=== PATIENT | female | born 1950 | race Caucasian/White ===

== ENCOUNTER 2024-04-04 10:59 | Outpatient (CLI) | payer MEDICARE, SELFPAY ==
[2024-04-04 11:18] LABS: Hematocrit 38.7 % (37.0-47.0); Hemoglobin 12.4 g/dL (12.0-15.0); Mean Corpuscular Volume 96.8 fl (80-100); Mean Platelet Volume 8.6 fl (7.4-10.4); Platelet Count Result 181 k/mm3 (150-375); Red Cell Distribution Width 13.6 % (11.5-14.5); White Blood Count 4.4 K/mm3 (4.5-10.0)
[2024-04-04 16:01] LABS: Alanine Aminotransferase 26 U/L (6-35); Alkaline Phosphatase 89 U/L (38-126); Anion Gap 7 mmol/L (4-12); Aspartate Amino Transferase 24 U/L (14-36); Bilirubin,Total 0.2 mg/dL (0.2-1.3); Blood Urea Nitrogen 13 mg/dL (7-17); Calcium 8.7 mg/dL (8.4-10.2); Carbon Dioxide 30 mmol/L (22-30); Chloride 100 mmol/L (98-107); Estimated Glomerular Filt Rate > 60; Glucose 158 mg/dL (65-110); Lactate Dehydrogenase 172 U/L (120-246); Potassium 4.4 mmol/L (3.4-5.0); Sodium 137 mmol/L (137-145)
== END 2024-04-04 11:00 | disposition home or self-care (01) ==
LOC: ANHLAB 11:05
PROVIDERS: Visit Provider Internal Medicine Hematology & Oncology
DX: C85.90 Non-Hodgkin lymphoma, unspecified, unspecified site (principal)
CPT/HCPCS: 36415; 80053; 83615; 85027

== ENCOUNTER 2024-04-07 14:15 | Emergency (ER) | payer MEDICARE, SELFPAY ==
--- NOTE | 2024-04-07 14:21 | ED.EAR ---
HPI - Ear Problem General Chief complaint: Ear Stated complaint: CLOGGED EAR Time Seen by Provider: 04/07/24 14:22 Source: patient, RN notes reviewed and old records reviewed Mode of arrival: ambulatory Limitations: no limitations History of Present Illness HPI Narrative: 73-year-old female to [facility] for complaint of clogged left ear with decreased hearing for 1 week. Patient states she has played doctor attempting to relieve the issue. Patient reports using Q-tips as well as attempting to irrigate the ear multiple times without improvement of symptoms. Patient denies recent illness, fever, cough, sore throat allergies, pertinent medical history. Patient resting, seated comfortably on exam table in no acute distress. Respirations even and nonlabored. Related Data Home Medications Medication Instructions Recorded Confirmed apixaban 5 mg tablet (Eliquis) 5 mg PO BID 04/07/24 04/07/24 celecoxib 200 mg capsule 200 mg PO DAILY 04/07/24 04/07/24 digoxin 125 mcg (0.125 mg) tablet 125 mcg PO DAILY 04/07/24 04/07/24 diltiazem HCl 360 mg capsule,24 360 mg PO QAM 04/07/24 04/07/24 hr,extended release duloxetine 60 mg capsule,delayed 60 mg PO DAILY 04/07/24 04/07/24 release gabapentin 300 mg capsule 300 mg PO TID 04/07/24 04/07/24 glipizide 5 mg tablet 5 mg PO AC 04/07/24 04/07/24 metoprolol succinate 25 mg 25 mg PO DAILY 04/07/24 04/07/24 tablet,extended release 24 hr potassium chloride 20 mEq 40 meq PO DAILY 04/07/24 04/07/24 tablet,extended release pravastatin 40 mg tablet 40 mg PO QHS 04/07/24 04/07/24 primidone 50 mg tablet 100 mg PO HS 04/07/24 04/07/24 torsemide 20 mg tablet 40 mg PO DAILY 04/07/24 04/07/24 tramadol 50 mg tablet 100 mg PO TID PRN arthritis 04/07/24 04/07/24 Allergies Allergy/AdvReac Type Severity Reaction Status Date / Time No Known Allergies Allergy Verified 04/07/24 14:28 Review of Systems Review of Systems: All systems reviewed & are unremarkable except as noted in HPI and below Constitutional: Constitutional: Reports no additional constitutional complaints Eyes: Eyes: Reports no additional eye complaints ENT: Reports as per HPI and Reports other ( Left ear clogged ) Cardiovascular: Cardiovascular: Reports no additional cardiovascular complaints, Denies chest pain and Denies dyspnea Respiratory: Respiratory: Reports no additional respiratory complaints, Denies cough and Denies dyspnea Musculoskeletal: Musculoskeletal: Reports no additional musculoskeletal complaints Neurologic: Reports system reviewed and no additional complaints, except as documented Psychiatric: Psychiatric: Reports no additional psychiatric complaints PMFSH Comments At the time of my signature, I reviewed and agree with the nursing past medical, surgical, social, and family history. There is no relevant family history pertinent to the patient complaint. Exam Const: General: cooperative, healthy appearing, comfortable, no acute distress, alert and well nourished Nutritional Appearance: well nourished Orientation/consciousness: patient oriented x3 Limitations: no limitations HENMT: Head: normal to inspection Ears: Abnormal EAC present cerumen impaction on the left, excessive cerumen on the right and erythema bilateral; no otic discharge and TM abnormal erythematous on the right and obstructed by cerumen on the left Face/Nose/Sinus: Normal external nose present, Normal nares present, normal facial exam, No erythema and No edema Face and sinus: normal facial exam, no erythema and no edema Mouth: Yes Normal oral and palatal mucosa present Eyes: General: appearance normal, both eyes and all related structures Neck: Neck: normal visual inspection, full ROM and no meningeal signs Chest: Chest palpation & inspection: normal inspection of the chest Resp: Effort & Inspection: normal respiratory effort and able to speak in complete sentences Cardio: Jugular venous distension: no JVD Rate: regular ra
[2024-04-07 14:29] VITALS: BP 130/83; PULSE 91; RESP 16; TEMP 36.1; O2SAT 97
[2024-04-07 14:36] VITALS: BP 130/83; PULSE 91; RESP 16; TEMP 36.1; O2SAT 97
== END 2024-04-07 15:20 | disposition home or self-care (01) ==
PROVIDERS: Emergency Provider Nurse Practitioner Family; PCP Family Medicine
DX: H60.91 Unspecified otitis externa, right ear (principal); H61.23 Impacted cerumen, bilateral; Z86.73 Personal history of transient ischemic attack (TIA), and cerebral infarction without residual deficits; I48.91 Unspecified atrial fibrillation; E78.00 Pure hypercholesterolemia, unspecified; I10 Essential (primary) hypertension; M19.90 Unspecified osteoarthritis, unspecified site; E11.9 Type 2 diabetes mellitus without complications; Z85.72 Personal history of non-Hodgkin lymphomas
CPT/HCPCS: 69210; 99213; A9270; G0463

== ENCOUNTER 2024-04-11 14:14 | Outpatient (CLI) | payer MEDICARE, SELFPAY ==
--- NOTE | ~2024-04-11 | CT_ITS ---
EXAMINATION: CT chest abdomen pelvis w con DATE: 04/11/2024 15:00 INDICATION: Non-Hodgkin's lymphoma. TECHNIQUE: Computed tomography (CT) of the chest, abdomen, and pelvis was performed with 100 mL Omnip aque 350 intravenous contrast. Automated exposure control and iterative reconstruction technique were employed. The dose-length product was 1430.37 mGy-cm. COMPARISON: None FINDINGS: CHEST CT: The lungs demonstrate mild atelectasis. No pleural effusion. There are nodules in the thyroid measuri ng up to 13 mm, likely not clinically significant. The heart size is normal. 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 There are coronary artery calcifications. No pericardial effusion. T here is lipomatous hypertrophy of the interatrial septum. There are bridging endplate osteophytes at multiple levels in the spine, consistent with diffuse idiopathic skeletal hyperostosis (DISH). There is mild thoracic spondylosis. ABDOMEN/PELVIS CT: The liver and spleen are normal. There are changes of cholecystectomy. The pancreas, adrenal glands, and right kidney are normal. There is a 12 mm stone in left kidney. There is calcified atherosclerosi s of the aorta and many of the other arteries. There is diverticulosis of the colon without evidence of diverticulitis. There are no dilated loops of bowel. The appendix is normal. There are no patholog ically enlarged lymph nodes. There is no free intraperitoneal fluid. There is severe lumbar spondylos is. IMPRESSION: 1. No evidence of lymphoma. Reviewed, dictated and finalized at location A. IMPRESSION: 1. No evidence of lymphoma.
== END 2024-04-11 14:15 | disposition home or self-care (01) ==
PROVIDERS: PCP Family Medicine; Visit Provider Internal Medicine Hematology & Oncology
DX: C85.90 Non-Hodgkin lymphoma, unspecified, unspecified site (principal)
CPT/HCPCS: 71260; 74177; Q9967

== ENCOUNTER 2024-05-19 11:32 | Outpatient (CLI) | payer MEDICARE, SELFPAY ==
[2024-05-19 12:40] LABS: Cholesterol 168 mg/dL (0-200); HDL Direct 40 mg/dL; Triglycerides 187 mg/dL (<150)
[2024-05-19 12:50] LABS: LDL Cholesterol Direct 90 mg/dL
[2024-05-19 14:44] LABS: Hemoglobin A1C 6.4 % (<5.7)
== END 2024-05-19 11:33 | disposition home or self-care (01) ==
LOC: ANHLAB 11:37
PROVIDERS: PCP Family Medicine; Visit Provider Family Medicine
DX: E11.9 Type 2 diabetes mellitus without complications (principal); M81.0 Age-related osteoporosis without current pathological fracture; C80.1 Malignant (primary) neoplasm, unspecified; M19.90 Unspecified osteoarthritis, unspecified site
CPT/HCPCS: 36415; 80061; 83036

== ENCOUNTER 2024-05-20 13:47 | Outpatient (CLI) | payer MEDICARE, SELFPAY | END 2024-05-20 13:48 | disposition home or self-care (01) | LOC: ANHAUDIO 13:49 | PROVIDERS: PCP Family Medicine; Visit Provider Family Medicine | DX: H90.3 Sensorineural hearing loss, bilateral (principal) | CPT/HCPCS: 92557; 92567 ==

== ENCOUNTER 2024-06-09 01:14 | Day surgery (SDC) | payer MEDICARE, SELFPAY ==
[2024-06-03 09:27] VITALS: BMI 37.2
--- NOTE | 2024-06-06 08:33 | PC.NURSE ---
Spoke with patient regarding medication ELIQUIS. Pt. verbalizes understanding that the last dose of ELIQUIS is to be taken on 06/05/2024 and the Endoscopist will instruct them when to restart after the procedure.
[2024-06-09 09:19] VITALS: BP 136/77; PULSE 70; RESP 18; TEMP 36.6; O2SAT 98; BMI 37.9
[2024-06-09] MEDS: LACTATED RINGERS 1,000 ML 150 ML IV CONT (09:23)
[2024-06-09 09:42] LABS: Glucose Point of Care 119 mg/dl (65-105)
--- NOTE | 2024-06-09 09:47 | P.PNAN_ITS ---
Anes - Initial Pre Proc Eval Procedure: Operation Date: 06/09/24 10:00 Proposed Procedures p Colonoscopy - Adrian Perrin MD Date/Time: 06/09/24 09:47 Surgeon: Adrian Perrin MD Pre Op Diagnosis: screening colon Patient Data Age: 73 Gender: F Height: 1.6 m Weight: 97.2 kg Last Vital Signs Temp 36.6 C 06/09/24 09:19 Pulse 70 06/09/24 09:19 Resp 18 06/09/24 09:19 BP 136/77 06/09/24 09:19 Pulse Ox 98 06/09/24 09:19 O2 Del Method Room Air 06/09/24 09:19 Allergies Allergy/AdvReac Type Severity Reaction Status Date / Time No Known Allergies Allergy Verified 06/09/24 09:15 Home Medications Medication Instructions Recorded Confirmed Type apixaban 5 mg tablet (Eliquis) 5 mg PO BID 04/07/24 06/09/24 History celecoxib 200 mg capsule 200 mg PO DAILY 04/07/24 06/09/24 History digoxin 125 mcg (0.125 mg) tablet 125 mcg PO DAILY 04/07/24 06/09/24 History diltiazem HCl 360 mg capsule,24 360 mg PO QAM 04/07/24 06/09/24 History hr,extended release gabapentin 300 mg capsule 300 mg PO TID 04/07/24 06/09/24 History glipizide 5 mg tablet 5 mg PO AC 04/07/24 06/09/24 History potassium chloride 20 mEq 40 meq PO DAILY 04/07/24 06/09/24 History tablet,extended release pravastatin 40 mg tablet 40 mg PO QHS 04/07/24 06/09/24 History primidone 50 mg tablet 25 mg PO HS 04/07/24 06/09/24 History torsemide 20 mg tablet 40 mg PO DAILY 04/07/24 06/09/24 History tramadol 50 mg tablet 100 mg PO TID PRN arthritis 04/07/24 06/09/24 History duloxetine 60 mg capsule,delayed See Rx Instructions .Route 05/20/24 06/09/24 Rx release .COMPLEX #90 caps metoprolol succinate 25 mg See Rx Instructions .Route 05/20/24 06/09/24 Rx tablet,extended release 24 hr .COMPLEX #90 tabs Laboratory Tests 06/09/24 09:39 POC Capillary Glucose 119 H mg/dl (65-105) Patient hx anesthesia problems: none Family hx anesthesia problems: none Results Review: All pre-operative results and documents have been reviewed as part of the pre- operative evaluation. [facility] Past Medical History Medical History (Updated 06/09/24 @ 09:48 by Cheko Munoz MD) Afib Arthritis Cancer Diabetes Osteoporosis Family History Family History Mother Diabetes mellitus Cancer Father Depression Anxiety Sibling Diabetes mellitus Sibling Cancer Diabetes mellitus Social History Social History Smoking packs per day: 1 Smoking cigarettes per day: 20.0 Years smoked: 50 Smoking pack-years: 50.00 Smoking status: Former smoker Tobacco type: cigarettes Alcohol intake: current Substance use: never Living arrangements: alone Spiritual care concerns: No Anes - Eval Final PreProcedure Day of Procedure 06/09/24 09:47 Patient weight: morbidly obese Heart: regular rate and rhythm Lungs: clear to auscultation Airway: Mallampati scale class II Neurological: alert and oriented Last oral intake: >/= 8 hours ASA classification: III Emergent: no Anesthetic plan: proceed Anesthesia type and monitoring: general GIVS and standard monitoring Results Review: All pre-operative results and documents have been reviewed as part of the pre- operative evaluation. Informed Consent: The patient's anesthetic plan and its attendant risks and benefits were discussed with the patient/family/POA. Questions were solicited and answers provided to the satisfaction of the patient/family/POA.
--- NOTE | 2024-06-09 10:46 | PM.IMHP ---
H&P: HPI History of Present Illness Date/Time: 06/09/24 10:46 Chief Complaint: History of colonic polyps Narrative: The patient has a history of colonic polyps, the last colonoscopy was 5 yr ago [facility] Past Medical History Medical History (Updated 06/09/24 @ 10:47 by Adrian Perrin MD) Afib Arthritis Cancer Diabetes Osteoporosis Family History Family History Mother Diabetes mellitus Cancer Father Depression Anxiety Sibling Diabetes mellitus Sibling Cancer Diabetes mellitus Social History Social History Smoking packs per day: 1 Smoking cigarettes per day: 20.0 Years smoked: 50 Smoking pack-years: 50.00 Smoking status: Former smoker Tobacco type: cigarettes Alcohol intake: current Substance use: never Living arrangements: alone Spiritual care concerns: No Meds Home Medications and Allergies Home Medications Medication Instructions Recorded Confirmed Type apixaban 5 mg tablet (Eliquis) 5 mg PO BID 04/07/24 06/09/24 History celecoxib 200 mg capsule 200 mg PO DAILY 04/07/24 06/09/24 History digoxin 125 mcg (0.125 mg) tablet 125 mcg PO DAILY 04/07/24 06/09/24 History diltiazem HCl 360 mg capsule,24 360 mg PO QAM 04/07/24 06/09/24 History hr,extended release gabapentin 300 mg capsule 300 mg PO TID 04/07/24 06/09/24 History glipizide 5 mg tablet 5 mg PO AC 04/07/24 06/09/24 History potassium chloride 20 mEq 40 meq PO DAILY 04/07/24 06/09/24 History tablet,extended release pravastatin 40 mg tablet 40 mg PO QHS 04/07/24 06/09/24 History primidone 50 mg tablet 25 mg PO HS 04/07/24 06/09/24 History torsemide 20 mg tablet 40 mg PO DAILY 04/07/24 06/09/24 History tramadol 50 mg tablet 100 mg PO TID PRN arthritis 04/07/24 06/09/24 History duloxetine 60 mg capsule,delayed See Rx Instructions .Route 05/20/24 06/09/24 Rx release .COMPLEX #90 caps metoprolol succinate 25 mg See Rx Instructions .Route 05/20/24 06/09/24 Rx tablet,extended release 24 hr .COMPLEX #90 tabs Allergies Allergy/AdvReac Type Severity Reaction Status Date / Time No Known Allergies Allergy Verified 06/09/24 09:15 Vital Signs Vital Signs - 24 hr 06/09/24 09:19 Temperature 97.8 F Pulse Rate 70 Respiratory Rate 18 Blood Pressure 136/77 Pulse Oximetry 98 Oxygen Delivery Room Air Assessment and Plan Assessment and plan (1) History of colonic polyps: Code(s): Z86.0100 - Personal history of colon polyps, unspecified Status: Acute Plan The patient is deemed a good candidate for the procedure. Consent signed. Will proceed.
[2024-06-09 11:32] VITALS: BP 120/72; PULSE 62; RESP 18; O2SAT 100
[2024-06-09 11:42] VITALS: BP 131/75; PULSE 64; RESP 26; O2SAT 100
[2024-06-09 11:52] VITALS: BP 150/75; PULSE 65; RESP 17; O2SAT 100
== END 2024-06-09 12:04 | disposition home or self-care (01) ==
PROVIDERS: PCP Family Medicine; Visit Provider Internal Medicine Gastroenterology
PROC: 0DJD8ZZ Inspection of Lower Intestinal Tract, Via Natural or Artificial Opening Endoscopic (ICD-10-PCS; CPT 45378; principal; 2024-06-09 10:00)
DX: Z12.11 Encounter for screening for malignant neoplasm of colon (principal); D12.2 Benign neoplasm of ascending colon; K57.30 Diverticulosis of large intestine without perforation or abscess without bleeding; I48.91 Unspecified atrial fibrillation; E11.9 Type 2 diabetes mellitus without complications; M81.0 Age-related osteoporosis without current pathological fracture; E66.01 Morbid (severe) obesity due to excess calories; Z68.38 Body mass index [BMI] 38.0-38.9, adult; Z79.01 Long term (current) use of anticoagulants; Z79.84 Long term (current) use of oral hypoglycemic drugs; Z79.891 Long term (current) use of opiate analgesic; Z87.891 Personal history of nicotine dependence; Z85.9 Personal history of malignant neoplasm, unspecified; Z80.9 Family history of malignant neoplasm, unspecified
CPT/HCPCS: 45385; 82948; 88305; J2003; J2704; J7120

== ENCOUNTER 2024-07-11 11:30 | Outpatient (RCR) | payer MEDICARE, SELFPAY | END 2024-07-11 23:59 | disposition home or self-care (01) | LOC: ANHAUDIO 11:30 | PROVIDERS: PCP Family Medicine; Visit Provider Family Medicine | DX: Z46.1 Encounter for fitting and adjustment of hearing aid (principal) | CPT/HCPCS: 99199; V5261 ==

== ENCOUNTER 2024-08-18 16:00 | Outpatient (CLI) | payer MEDICARE, SELFPAY ==
[2024-08-18 17:13] LABS: Digoxin < 0.5 ng/mL (0.8-2.0)
== END 2024-08-18 16:01 | disposition home or self-care (01) ==
LOC: ANHLAB 16:02
PROVIDERS: PCP Family Medicine; Visit Provider Internal Medicine Cardiovascular Disease
DX: I48.0 Paroxysmal atrial fibrillation (principal)
CPT/HCPCS: 36415; 80162

== ENCOUNTER 2024-10-19 11:32 | Outpatient (CLI) | payer MEDICARE, SELFPAY ==
[2024-10-19 11:56] LABS: Basophils Percent Auto 0.1 % (0.2-1.2); Eosinophils Absolute Auto 0.1 K/mm3 (0-0.3); Hemoglobin 12.4 g/dL (12.0-15.0); Immature Granulocyte Absolute 0.42 K/mm3 (0.00-0.031); Immature Granulocyte Percent A 5.9 % (0-0.5); Lymphocytes Absolute Auto 0.38 K/mm3 (0.9-3.2); Lymphocytes Percent Auto 5.4 % (18.3-44.2); Mean Corpuscular HGB Conc 31.8 g/dl (32-36); Mean Corpuscular Hemoglobin 29.8 pg (26-34); Mean Corpuscular Volume 93.8 fl (80-100); Mean Platelet Volume 9.2 fl (7.4-10.4); Monocytes Absolute Auto 1.1 K/mm3 (0.1-0.6); Monocytes Percent Auto 15.8 % (2.6-8.5); Neutrophils Percent Auto 70.8 % (45.5-73.1); Platelet Count Result 233 k/mm3 (150-375); Red Blood Count 4.16 M/mm3 (4.2-5.4); White Blood Count 7.1 K/mm3 (4.5-10.0)
[2024-10-19 11:57] LABS: Platelet Estimate Adequate (Adequate); Schistocytes None Seen
[2024-10-19 12:00] LABS: Blood Urea Nitrogen 33 mg/dL (8-26); Carbon Dioxide 29 mmol/L (22-30); Chloride 99 mmol/L (98-109); Estimated Glomerular Filt Rate 44; Glucose 148 mg/dL (70-105); Ionized Calcium (POC) 1.16 mmol/L (1.11-1.31); Potassium 3.8 mmol/L (3.5-4.9); Sodium 141 mmol/L (138-146)
--- OUTSIDE RECORDS SUMMARY | 2024-10-19 13:16 | XMS_ITS | Clinical Summary ---
Author Organization [facility] Address [address] [place] [address] Care Team Providers Care Wound Care Technician Name Role Phone Ilan Gibbs MD Primary Care Provider [phone] Allergies No known active allergies Medications celecoxib (CeleBREX) 200 mg capsule Take 200 mg by mouth daily. Active digoxin (LANOXIN) 125 mcg (0.125 mg) tablet Take 125 mcg by mouth daily. Active diltiaZEM (TIAZAC) 360 mg Extended Release capsule Take 360 mg by mouth daily. Active apixaban (Eliquis) 5 mg tablet Take 5 mg by mouth 2 times daily. Active gabapentin (NEURONTIN) 300 mg capsule Take 300 mg by mouth 3 times daily. Active glipiZIDE (GLUCOTROL XL) 5 mg Extended Release 24 hour tablet Take 5 mg by mouth daily with breakfast. Active hydrocortisone (HYTONE) 2.5 % Cream Apply to affected area 2 times daily. Active metoprolol succinate (TOPROL XL) 25 mg Extended Release 24 hour tablet Take 25 mg by mouth daily. Active potassium chloride (KLOR-CON M20) 20 mEq Extended Release tablet Take 20 mEq by mouth daily. Active pravastatin (PRAVACHOL) 40 mg tablet Take 40 mg by mouth daily with supper. Active primidone (MYSOLINE) 50 mg tablet Take 50 mg by mouth every 8 hours. Active torsemide (DEMADEX) 20 mg tablet Take 20 mg by mouth daily. Active traMADoL (ULTRAM) 50 mg tablet Take 50 mg by mouth every 6 hours as needed for Pain. 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 Office Visit [facility] - [place] [address] [place] [id number] Christian Moore MD Non-Hodgkin's lymphoma, unspecified body region, unspecified non-Hodgkin lymphoma type (CMS/HCC) (Primary Dx); Breast cancer screening by mammogram 10/04/2024 External Device Data STL ABSTRACTION Provider, Abstract 09/22/2024 Abstract [facility] [address] [place] [id number] Christian Moore MD 09/21/2024 Telephone [facility] [address] [place] [id number] Christian Moore MD Surgical Clearance 09/13/2024 External Device Data STL ABSTRACTION Provider, Abstract 09/07/2024 External Device Data STL ABSTRACTION Provider, Abstract 09/07/2024 External Device Data STL ABSTRACTION Provider, Abstract from Last 3 Months Family History Medical History Relation Name Comments Diabetes Brother No Known Problems Father Cancer Mother Cancer Sister 1 Diabetes Sister 2 Relation Name Status Comments Brother Alive Father Mother Sister 1 Sister 2 Alive Social History Tobacco Use Types Packs/Day Years Used Date Smoking Tobacco: Former Cigarettes 1 55 Q uit: 08/17/2023 Tobacco Cessation:Counseling Given: Not Answered Alcohol Use Standard Drinks/Week Comments Yes 0 (1 standard drink = 0.6 oz pur e alcohol) socially Comments Unknown Sex and Gender Information Value Date Recorded Sex Assigned at Not on file Legal Sex Female 11:02 AM CDT Gender Identity Not on file Sexual Orientation Not on file Last Filed Vital Signs Vital Sign Reading Time Taken Comments Blood Pressure 119/77 10/19/2024 11:48 AM 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 Pulse 93 10/19/2024 11:48 AM 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 Temperature 36.4 C (97.5 F) 10/19/2024 11:48 AM 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 Respiratory Rate 15 10/19/2024 11:48 AM 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 Oxygen Saturation 93% 10/19/2024 11:48 AM 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 Inhaled Oxygen Concentration - - Weight 98.2 kg (216 lb 6.4 oz) 10/19/2024 11:48 AM 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 Height 165.1 cm (5' 5 ) 04/04/2024 10:14 AM CDT Body Mass Index 36.01 04/04/2024 10:14 AM CDT Plan of Treatment Upcoming Encounters Date Type Department Care Team (Late st Contact Info) Description 05/02/2025 11:00 AM CDT Office Visit [facility] - [place] [address] [place] [address] Christian Moore MD [address] [place] [address] Health Maintenance Due Date Last Done Comments DIABETES ANNUAL FOOT EXAM 11/29/1967 DIABETES ANNUAL RETINAL EXAM 11/29/1967 DIABETES MICROALBUMIN ANNUAL SCREEN 11/29/1967 LDL CHOLESTEROL ANNUAL 11/29/1967 BREAST CANCER SCREENING 1989 FIT-DNA Q 3 years 1994 FIT/FOBT Q 1 year 1994 Flex Sig/CT Colonography Q 5 years 1994 ZOSTER VACCINE (1 of 2) 11/29/1999 PNEUMOCOCCAL VACCINE 50+ YEA RS (3 of 3 - PCV20 or PCV21) 05/19/2021 05/19/2016, 07/01/2011 DIABETES HBA1C Q 6 MONTHS 04/07/2022 10/08/2021 Lung Cancer Screening 04/17/2022 04/17/2021 INFLUENZA VACCINE (#1) 2024 , 06/30/2022, 10/08/2021, Additional history exists COVID-19 Vaccine (2023-2 5 season) 2024 05/13/2023, 05/15/2022, 07/26/2021, Additional history exists Medicare [place] Preventative Visit/Annual Wellness Visit 08/17/2024 RSV VACCINE (60+ or ) (1 - 1-dose 75+ series) 2024 DTAP/TDAP/TD VACCINES (2 - T d or Tdap) 05/19/2026 05/19/2016 COLORECTAL SCREENING 12/29/2027 12/28/2017 Colorectal Cancer Screening 12/29/2027 OSTEOPOROSIS SCREENING Completed 05/24/2021 Insurance [employer] PPO MCR Care Teams Wound Care Technician Relationship Specialty Start Date End Date Ilan Gibbs MD [address] [place] [id number] PCP - General Family Practice 04/04/24
--- OUTSIDE RECORDS SUMMARY | 2024-10-19 13:16 | XMS_ITS | Clinical Summary ---
Author Organization [facility] [address] Address [address] [place] [address] Care Team Providers Care Tribal Council Member Name Role Phone Ilan Gibbs MD Primary Care Provider [phone] Allergies Active Allergy Reactions Criticality Noted Date Comments Adhesive Rash Medium 08/15/2024 Medications celecoxib (CeleBREX) 200 mg capsule Take 1 capsule (200 mg total) by mouth daily 4 Active diltiazem (TIAZAC) 360 mg 24 hr capsule TAKE 1 CAPSULE BY MOUTH DAILY IN THE MORNING 4 Active apixaban (ELIQUIS) 5 mg tablet Take 1 tablet (5 mg total) by mouth 2 (two) times a day Active gabapentin (NEURONTIN) 300 mg capsule Take 1 capsule (300 mg total) by mouth 3 (three) times a day 4 Active glipiZIDE (GLUCOTROL) 5 mg tablet TAKE 1 TABLET BY MOUTH BEFORE BREAKFAST AND 1/2 TABLET EVERY EVENING BEFORE DINNER 4 Active metoprolol XL (TOPROL-XL) 25 mg extended release tablet Take 1 tablet (25 mg total) by mouth daily 4 Active potassium chloride ER 20 mEq CR tablet Take 1 tablet (20 mEq total) by mouth daily Active pravastatin (PRAVACHOL) 40 mg tablet Take 1 tablet (40 mg total) by mouth nightly at bedtime 4 Active traMADoL (ULTRAM) 50 mg tablet TAKE 2 TABLETS BY MOUTH THREE TIMES DAILY NEEDED FOR ARTHRITIS [address] (CYMBALTA) 60 mg capsule Take by mouth daily 4 Active digoxin (LANOXIN) 125 mcg (0.125 mg) tablet Take 1 tablet (125 mcg total) by mouth daily 4 Active primidone (MYSOLINE) 50 mg tablet Take 1 tablet (50 mg total) by mouth 4 (four) times a day Active torsemide (DEMADEX) 20 mg tablet Take 0.5 tablets (10 mg total) by mouth daily Active Active Problems Problem Noted Date Diagnosed Date Essential hypertension 09/02/2024 Mixed hyperlipidemia 09/02/2024 Follicular non-Hodgkin lymphoma 09/02/2024 PAF (paroxysmal atrial fibrillation) 08/15/2024 Encounters Date Type Department Care Team Description 09/26/2024 2:00 PM TUB WASHER Ancillary Procedure [facility] Cardiology [address] [place] [phone] PAF (paroxysmal atrial fibrillation) (HCC) 08/18/2024 Telephone [facility] Cardiology [address] [place] [phone] Lowell Sanderson MD lab order 08/15/2024 8:15 AM TUB WASHER Office Visit [facility] Cardiology [address] [place] [phone] Lowell Sanderson MD PAF (paroxysmal atrial fibrillation) (HCC) (Primary Dx); Need for lipid screening; Essential hypertension; Mixed hyperlipidemia; Follicular non-Hodgkin lymphoma (HCC) from Last 3 Months Medical History Medical History Date Comments Atrial fibrillation (HCC) History of cardioversion Cancer (HCC) Social History Tobacco Use Types Packs/Day Years Used Date Smoking Tobacco: Former Cigarettes Tobacco Cessation:Counseling Given: Not Answered AUDIT-C Answer Date Recorded Q1: How often do you have a drink containing alc ohol? Monthly or less 09/02/2024 Average Number of Drinks Not on file 025 Frequency of Binge Drinking Not on file 08/17 Comments Unknown Sex and Gender Information Value Date Recorded Sex Assigned at Not on file Legal Sex Female 1:02 PM TUB WASHER Gender Identity Not on file Sexual Orientation Not on file Obstetrics History Last Filed Vital Signs Vital Sign Reading Time Taken Comments Blood Pressure 110/66 08/15/2024 8:33 AM TUB WASHER Pulse - - Temperature - - Respiratory Rate - - Oxygen Saturation 96% 08/15/2024 8:33 AM TUB WASHER Inhaled Oxygen Concentration - - Weight 98.8 kg (217 lb 14.4 oz) 08/15/2024 8:33 AM TUB WASHER Height 167.6 cm (5' 6 ) 08/15/2024 8:33 AM TUB WASHER Body Mass Index 35.17 08/15/2024 8:33 AM TUB WASHER Plan of Treatment Health Maintenance Due Date Last Done Comments Breast Cancer Screening-Mammogram 1950 Colon Cancer Screening-Colonoscopy 1950 Depression Screening 1950 Fall Risk Assessment 1950 Hepatitis C Screening 1950 Osteoporosis Screening-Bone Density Scan 1950 Hepatitis B Screening 11/29/1967 Zoster Vaccine (1 of 2) 1968 Well Visit 65+ 2014 Pneumococcal vaccine 65+ (3 of 3 - PPSV23, PCV20 or PCV21) 07/14/2016 05/19/2016, 07/01/2011 Influenza Vaccine (#1) 2024 , 06/30/2022, 10/08/2021, Additional history exists Covid-19 Vaccine (7 - Pfizer risk season) 2024 05/13/2024, 05/13/2023, 05/15/2022, Additional history exists DTaP/Tdap/Td Vaccine (2 - Td or Tdap) 05/19/2026 05/19/2016 Procedures Procedure Name Priority Date/Time Associated Diagnosis Comments TRANSTHORACIC ECHO (TTE) COMPLETE W DOPPLER/CF WO CONTRAST Routine 09/26/2024 2:28 PM TUB WASHER PAF (paroxysmal atrial fibrillation) (HCC) ECG 12-LEAD Routine 09/02/2024 12:12 PM TUB WASHER PAF (paroxysmal atrial fibrillation) (HCC) POCT LIPID PANEL Routine 08/15/2024 12:4 3 PM TUB WASHER Need for lipid screening from Last 3 Months Results * TRANSTHORACIC ECHO (TTE) COMPLETE W DOPPLER/CF WO CONTRAST (09/26/2024 2:28 PM TUB WASHER) LV EF % CONS SCIMAGE Anatomical Region Laterality Modality Ultrasound 09/26/2024 1:53 PM TUB WASHER Narrative 09/26/2024 6:07 PM TUB WASHER [facility] Cardiology [address], [place], [place] [id number] [address] [facility] [address], [place] [address] P:[phone] P:[phone] Echocardiographic Report Patient Name: MARY MERLOS : 1950 Study Date: 09/26/2024 1:53:25 PM Gender: F Tech: Location: [facility] Provider: LOWELL SANDERSON Height(Cm): 168 BSA: 2.14 Weight(Kg): 98.4 Heart Rate: 70 BP: 110 / 66 Quality: Good Order Provider: LOWELL SANDERSON PROCEDURES: Echocardiographic Report: Transthoracic echocardiogram with complete 2D, M-Mode, and color Doppler examination. With Strain Analysis. INDICATIONS: I48.0 Paroxysmal atrial fibrillation. MEASUREMENTS: 2D/MM Value Range Doppler Value Range EF Mod BP 59 % [ 54 - 74 ] DESTINEE Vmax 1.97 cm2 [ 2.00 - 4.00 ] EF Teich MM 52 % [ 54 - 74 ] AV Mean PG 8 mmHg LVIDd 2D 5.74 cm [ 3.80 - 5.20 ] AV Peak Malik 1.97 m/s [ 1.00 - 1.70 ] LVIDd MM 6.23 cm [ 3.80 - 5.20 ] AV Peak PG 16 mmHg LVIDs 2D 4.11 cm [ 2.20 - 3.50 ] AV VTI 35.32 cm LVIDs MM 4.52 cm [ 2.20 - 3.50 ] LVOT Diam 1.96 cm [ 1.70 - 2.10 ] LVPWd 2D 1.11 cm [ 0.60 - 0.90 ] LVOT Peak Malki 1.29 m/s [ 0.70 - 1.10 ] LVPWd MM 0.96 cm [ 0.60 - 0.90 ] LVOT VTI 27.09 cm IVSd 2D 0.97 cm [ 0.60 - 0.90 ] MV E Peak Malik 0.63 m/s [ 0.60 - 1.30 ] IVSd MM 0.82 cm [ 0.60 - 0.90 ] MV A Peak Malik 1.23 m/s [ 1.00 - 1.20 ] LA Dimension MM 4.62 cm [ 2.70 - 3.80 ] MV Decel Time 344 msec [ 104 - 258 ] AoR Diam MM 3.53 cm [ 2.70 - 3.70 ] PV Peak Malik 1.15 m/s [ 0.40 - 0.80 ] LA Volume Index 22 cc/m2 [ 16 - 34 ] TR Peak Malik 2.65 m/s [ 1.00 - 2.80 ] TR Peak PG 28 mmHg RVSP 36.00 mmHg [ 10.00 - 36.00 ] Lateral E` 0.05 m/s [ 0.10 - 0.15 ] E` 0.03 m/s E/E` 12 2D/MM Value Range Doppler Value Range - FINDINGS: Interpretation Site: Exam was interpreted at [facility]. Left Ventricle: Normal left ventricular systolic function. No focal wall motion abnormalities. Normal left ventricular size. Left ventricular wall thickness upper limits of normal. Impaired diastolic relaxation Grade I. Ejection fraction is measured at 59 %. Global Longitudinal Strain is -14 %. GLS is abnormal. Right Ventricle: Normal right ventricular size. Normal right ventricular systolic function. Left Atrium: The left atrium is normal in size. Right Atrium: The right atrium is normal in size. Atrial Septum: Normal atrial septum. Mitral Valve: Normal appearance of the mitral valve. No mitral valve regurgitation is seen. There is no hemodynamically significant mitral stenosis by Doppler. Aortic Valve: Mild aortic stenosis. Mean gradient of 8.0 mmHg. Valve area of 1.97 cm2. Aortic cusps appear mildly calcified. Trileaflet aortic valve. Trace aortic valve regurgitation. Tricuspid Valve: Normal appearance of the tricuspid valve. Estimated peak RVSP is 36 mmHg. Trivial regurgitation in the tricuspid valve. Pulmonic Valve: Normal appearance of the pulmonic valve. Mild pulmonic regurgitation. Pericardium: Normal pericardium with no significant pericardial effusion. Aorta: Sinus of Valsalva is normal. IVC: Normal size and normal respiratory collapse consistent with normal right atrial pressure (<5 mmHg). Pulmonary Artery: Normal pulmonary artery size. CONCLUSIONS: Normal left ventricular systolic function. No focal wall motion abnormalities. Normal left ventricular size. Left ventricular wall thickness upper limits of normal. Impaired diastolic relaxation Grade I. Ejection fraction is measured at 59 %. Global Longitudinal Strain is -14 %. GLS is abnormal. Mild aortic stenosis. Mean gradient of 8.0 mmHg. Valve area of 1.97 cm2. Aortic cusps appear mildly calcified. Trileaflet aortic valve. Trace aortic valve regurgitation. Estimated peak RVSP is 36 mmHg. Trivial regurgitation in the tricuspid valve. Mild pulmonic regurgitation. Electronically Signed By: Dr. Lowell Sanderson [facility] 09/26/2024 6:07:16 PM TUB WASHER Procedure Note Lowell Sanderson MD - 09/26/2024 [facility] Cardiology [address] [facility] [address], [place] [address] [address] [facility] [address], [address], [place] [address] P:[phone] P:[phone] Echocardiographic Report Patient Name: MARY MERLOS : 1950 Study Date: 09/26/2024 1:53:25 PM Gender: F Tech: Location: [facility] Provider: LOWELL SANDERSON Height(Cm): 168 BSA: 2.14 Weight(Kg): 98.4 Heart Rate: 70 BP: 110 / 66 Quality: Good Order Provider: LOWELL SANDERSON PROCEDURES: Echocardiographic Report: Transthoracic echocardiogram with complete 2D, M-Mode, and color Dopplerexamination. With Strain Analysis. INDICATIONS: I48.0 Paroxysmal atrial fibrillation. MEASUREMENTS: 2D/MM Value Range Doppler ValueRange EF Mod BP 59 % [ 54 - 74 ] DESTINEE Vmax 1.97cm2 [ 2.00 - 4.00 ] EF Teich MM 52 % [ 54 - 74 ] AV Mean PG 8mmHg LVIDd 2D 5.74 cm [ 3.80 - 5.20 ] AV Peak Malik 1.97m/s [ 1.00 - 1.70 ] LVIDd MM 6.23 cm [ 3.80 - 5.20 ] AV Peak PG 16mmHg LVIDs 2D 4.11 cm [ 2.20 - 3.50 ] AV VTI 35.32cm LVIDs MM 4.52 cm [ 2.20 - 3.50 ] LVOT Diam 1.96 cm[ 1.70 - 2.10 ] LVPWd 2D 1.11 cm [ 0.60 - 0.90 ] LVOT Peak Malik 1.29m/s [ 0.70 - 1.10 ] LVPWd MM 0.96 cm [ 0.60 - 0.90 ] LVOT VTI 27.09cm IVSd 2D 0.97 cm [ 0.60 - 0.90 ] MV E Peak Malik 0.63m/s [ 0.60 - 1.30 ] IVSd MM 0.82 cm [ 0.60 - 0.90 ] MV A Peak Malik 1.23m/s [ 1.00 - 1.20 ] LA Dimension MM 4.62 cm [ 2.70 - 3.80 ] MV Decel Time 344msec [ 104 - 258 ] AoR Diam MM 3.53 cm [ 2.70 - 3.70 ] PV Peak Malik 1.15m/s [ 0.40 - 0.80 ] LA Volume Index 22 cc/m2 [ 16 - 34 ] TR Peak Malik 2.65m/s [ 1.00 - 2.80 ] TR Peak PG 28 mmHg RVSP 36.00 mmHg [ 10.00 - 36.00 ] Lateral E` 0.05 m/s [ 0.10 - 0.15 ] E` 0.03 m/s E/E` 12 2D/MM Value Range Doppler ValueRange - FINDINGS: Interpretation Site: Exam was interpreted at [facility]. Left Ventricle: Normal left ventricular systolic function. No focal wall motionabnormalities. Normal left ventricular size. Left ventricular wall thickness upper limits ofnormal. Impaired diastolic relaxation Grade I. Ejection fraction is measured at 59 %.Global Longitudinal Strain is -14 %. GLS is abnormal. Right Ventricle: Normal right ventricular size. Normal right ventricular systolicfunction. Left Atrium: The left atrium is normal in size. Right Atrium: The right atrium is normal in size. Atrial Septum: Normal atrial septum. Mitral Valve: Normal appearance of the mitral valve. No mitral valve regurgitation isseen. There is no hemodynamically significant mitral stenosis by Doppler. Aortic Valve: Mild aortic stenosis. Mean gradient of 8.0 mmHg. Valve area of 1.97 cm2.Aortic cusps appear mildly calcified. Trileaflet aortic valve. Trace aortic valveregurgitation. Tricuspid Valve: Normal appearance of the tricuspid valve. Estimated peak RVSP is 36 mmHg.Trivial regurgitation in the tricuspid valve. Pulmonic Valve: Normal appearance of the pulmonic valve. Mild pulmonic regurgitation. Pericardium: Normal pericardium with no significant pericardial effusion. Aorta: Sinus of Valsalva is normal. IVC: Normal size and normal respiratory collapse consistent with normal rightatrial pressure (<5 mmHg). Pulmonary Artery: Normal pulmonary artery size. CONCLUSIONS: Normal left ventricular systolic function. No focal wall motionabnormalities. Normal left ventricular size. Left ventricular wall thickness upper limits ofnormal. Impaired diastolic relaxation Grade I. Ejection fraction is measured at 59 %.Global Longitudinal Strain is -14 %. GLS is abnormal. Mild aortic stenosis. Mean gradient of 8.0 mmHg. Valve area of 1.97 cm2.Aortic cusps appear mildly calcified. Trileaflet aortic valve. Trace aortic valveregurgitation. Estimated peak RVSP is 36 mmHg. Trivial regurgitation in the tricuspidvalve. Mild pulmonic regurgitation. Electronically Signed By: Dr. Lowell Sanderson [facility] 09/26/2024 6:07:16 PM TUB WASHER us Lowell Sanderson MD CV ECHO PROCEDURES F inal Result * ECG 12 lead (09/02/2024 12:12 PM TUB WASHER) Lowell Sanderson MD ECG ORDERABLES Carolynn l Result * POCT lipid panel (08/15/2024 12:43 PM TUB WASHER) Cholesterol, POC 154 mg/dL Comment:GLU = 218 HDL, POC 42 mg/dL Triglycerides, POC 165 mg/dL LDL Cholesterol POC 78 mg/dL Chol/HDL Ratio, POC 1.8 Non-HDL Cholesterol, POC 111 mg/dL Cholesterol Total, POC 154 mg/dL Capillary blood 08/15/2024 1 2:43 PM TUB WASHER Lowell Sanderson MD POINT OF CARE TEST O RDERABLES Final Result from Last 3 Months Insurance AETNA MEDICARE [facility] Address: [facility] [id number] [place] [id number] Care Teams Tribal Council Member Relationship Specialty Start Date End Date Ilan Gibbs MD [address] [place] [address] PCP - General Family Practice 08/15/24
--- OUTSIDE RECORDS SUMMARY | 2024-10-19 13:16 | XMS_ITS | Referral Summary ---
Author Organization [facility] [address] [place] [phone] Care Team Providers Care Bufferer Name Role Phone Ilan Gibbs MD Primary Care Provider [phone] Encounters Date Type Department Care Team Description 09/26/2024 2:00 PM SCRAPER TENDER Ancillary Procedure [facility] Cardiology [address] [place] [address] [place] [phone] PAF (paroxysmal atrial fibrillation) (HCC) 08/18/2024 Telephone [facility] [place] [address] [place] [phone] Lowell Sanderson MD lab order 08/15/2024 8:15 AM SCRAPER TENDER Office Visit [address] [phone] Lowell Sanderson MD PAF (paroxysmal atrial fibrillation) (HCC) (Primary Dx); Need for lipid screening; Essential hypertension; Mixed hyperlipidemia; Follicular non-Hodgkin lymphoma (HCC) from Last 3 Months Allergies Active Allergy Reactions Criticality Noted Date [...] lymphoma 09/02/2024 PAF (paroxysmal atrial fibrillation) 08/15/2024 Social History Tobacco Use Types Packs/Day Years [...] on file Legal Sex Female 1:02 PM SCRAPER TENDER Gender Identity Not on file Sexual Orientation Not on file Last Filed Vital Signs Vital Sign Reading Time Taken Comments Blood Pressure 110/66 08/15/2024 8:33 AM SCRAPER TENDER Pulse - - Temperature - - Respiratory Rate - - Oxygen Saturation 96% 08/15/2024 8:33 AM SCRAPER TENDER Inhaled Oxygen Concentration - - Weight 98.8 kg (217 lb 14.4 oz) 08/15/2024 8:33 AM SCRAPER TENDER Height 167.6 cm (5' 6 ) 08/15/2024 8:33 AM SCRAPER TENDER Body Mass Index 35.17 08/15/2024 8:33 AM SCRAPER TENDER Plan of Treatment Not on file Procedures Procedure Name Priority Date/Time Associated Diagnosis Comments TRANSTHORACIC ECHO (TTE) COMPLETE W DOPPLER/CF WO CONTRAST Routine 09/26/2024 2:28 PM SCRAPER TENDER PAF (paroxysmal atrial fibrillation) (HCC) ECG 12-LEAD Routine 09/02/2024 12:12 PM SCRAPER TENDER PAF (paroxysmal atrial fibrillation) (HCC) POCT LIPID PANEL Routine 08/15/2024 12:4 3 PM SCRAPER TENDER Need for lipid screening from Last 3 Months Results * TRANSTHORACIC ECHO (TTE) COMPLETE W DOPPLER/CF WO CONTRAST (09/26/2024 2:28 PM SCRAPER TENDER) LV EF % CONS SCIMAGE Anatomical Region Laterality Modality Ultrasound 09/26/2024 1:53 PM SCRAPER TENDER Narrative 09/26/2024 6:07 PM SCRAPER TENDER [facility] Cardiology [address] [facility] [address] [id number] [address] [facility] [address], [place] [address] P:[phone] P:[phone] Echocardiographic Report Patient Name: MARY MERLOS : 1950 Study Date: 09/26/2024 1:53:25 PM Gender: F Tech: Location: [place] Ref Provider: LOWELL SANDERSON Height(Cm): 168 BSA: 2.14 [...] 0.60 - 0.90 ] LVOT Peak Malik 1.29 m/s [ 0.70 - 1.10 ] [...] FINDINGS: Interpretation Site: Exam was interpreted at [facility]. Left Ventricle: Normal left ventricular systolic function. [...] regurgitation. Electronically Signed By: Dr. Lowell Sanderson [facility] 09/26/2024 6:07:16 PM SCRAPER TENDER Procedure Note Lowell Sanderson MD - 09/26/2024 [facility] Cardiology [address] [facility] [address], [place] [address] [address] [facility] [address], [place] [address] P:[phone] P:[phone] Echocardiographic Report Patient Name: MARY MERLOS : 1950 Study Date: 09/26/2024 1:53:25 PM Gender: F Tech: Location: [facility] Provider: LOWELL SANDERSON Height(Cm): 168 BSA: 2.14 [...] FINDINGS: Interpretation Site: Exam was interpreted at [facility]. Left Ventricle: Normal left ventricular systolic function. [...] regurgitation. Electronically Signed By: Dr. Lowell Sanderson [facility] 09/26/2024 6:07:16 PM SCRAPER TENDER us Lowell Sanderson MD CV ECHO PROCEDURES F inal Result * ECG 12 lead (09/02/2024 12:12 PM SCRAPER TENDER) us Lowell Sanderson MD ECG ORDERABLES Carolynn l Result * POCT lipid panel (08/15/2024 12:43 PM SCRAPER TENDER) [facility] Cholesterol, POC 154 mg/dL Comment:GLU = 218 HDL, POC 42 mg/dL Triglycerides, POC 165 mg/dL LDL Cholesterol POC 78 mg/dL Chol/HDL Ratio, POC 1.8 Non-HDL Cholesterol, POC 111 mg/dL Cholesterol Total, POC 154 mg/dL Capillary blood 08/15/2024 1 2:43 PM SCRAPER TENDER us Lowell Sanderson MD POINT OF CARE TEST O RDERABLES Final Result from Last 3 Months Insurance AETNA MEDICARE Care Teams Bufferer Relationship Specialty Start Date End Date Ilan Gibbs MD [address] [place] [address] PCP - General Family Practice 08/15/24
--- OUTSIDE RECORDS SUMMARY | 2024-10-19 13:17 | XMS_ITS | Encounter Summary ---
Author Organization [facility] Address [address] [place] [address] Care Team Providers Care Mold Yard Crane Operator Name Role Phone Isidro Galeano MD Primary Care Provider Unavailab le Encounter Details Date Type Department Care Team (Late st Contact Info) Description 09/27/2020 Telestream Message Enc [facility] Medical [facility] Multispecialty Care [address] [phone] [place], [facility] Provider RE:lab results. Social History Tobacco Use Types Packs/Day Years Used Date Smoking Tobacco: Every Day Cigarettes 1 50 Smokeless Tobacco: Never Alcohol Use Standard Drinks/Week Comments No 0 (1 standard drink = 0.6 oz pur e alcohol) AUDIT-C Answer Date Recorded Frequency of Alcohol Consumption Never 05/24/2019 Average Number of Drinks Not on file 019 Frequency of Binge Drinking Not on file 03/2019 PHQ-2 Answer Date Recorded PHQ-2 Score - If the patient scores above 3, please move on to questions 3-9 0 09/25/2020 Comments No Sex and Gender Information Value Date Recorded Sex Assigned at Not on file Legal Sex Female 6:20 PM CDT Gender Identity Not on file Sexual Orientation Not on file COVID-19 Exposure Response Date Recorded In the last month, have you been in contact with someone who was confirmed or suspected to have Coronavirus / COVID-19? No / Unsure 09/25/2020 10:29 AM PROCESS MANAGER documented as of this encounter Progress Notes * Ishan Pickett, JONATHAN - 10/03/2020 8:02 AM CST . ESS MANAGER documented in this encounter Plan of Treatment Not on file documented as of this encounter Visit Diagnoses Not on filedocumented in this encounter Care Teams Mold Yard Crane Operator Relationship Specialty Start Date End Date Isidro Galeano MD PCP - General INTERNAL MEDICINE 04/06/18 documented as of this encounter
--- OUTSIDE RECORDS SUMMARY | 2024-10-19 13:17 | XMS_ITS | Encounter Summary ---
Author Organization [facility] Address [address] [place] [address] Care Team Providers Care Boilers And Pressure Vessels Inspector Name Role Phone Isidro Galeano MD Primary Care Provider Unavailab Isidro Evans MD Unavailable Unavailable Encounter Details Date Type Department Care Team (Latest Contact Info) Description 05/12/2018 Abstract [facility] Medical Group Angel Ayala MD Social History Tobacco Use Types Packs/Day Years Used Date Smoking Tobacco: Every Day Cigarettes Smokeless Tobacco: Never Comments No Sex and Gender Information Value Date Recorded Sex Assigned at Not on file Legal Sex Female 6:20 PM CDT Gender Identity Not on file Sexual Orientation Not on file documented as of this encounter Plan of Treatment Not on file documented as of this encounter Visit Diagnoses Not on filedocumented in this encounter Care Teams Boilers And Pressure Vessels Inspector Relationship Specialty Start Date End Date Isidro Galeano MD PCP - General INTERNAL MEDICINE 04/06/18 Isidro Galeano MD PCP - Med Group - [facility] Attributed Provider 10/15/18 08/17/20 documented as of this encounter
--- OUTSIDE RECORDS SUMMARY | 2024-10-19 13:17 | XMS_ITS | Encounter Summary ---
Author Organization [facility] Address [facility] [place] [address] Care Team Providers Care Hydropress Operator Name Role Phone Isidro Galeano MD Primary Care Provider Unavailab Isidro Evans MD Unavailable Unavailable Encounter Details Date Type Department Care Team (Late st Contact Info) Description 10/31/2017 Abstract [facility] [address] [place] [address] , Generic Conversion[facility] Social History Tobacco Use Types Packs/Day Years Used Date Smoking Tobacco: Never Assessed Comments Unknown Sex and Gender Information Value Date Recorded Sex Assigned at Not on file Legal Sex Female 6:20 PM CDT Gender Identity Not on file Sexual Orientation Not on file documented as of this encounter Plan of Treatment Not on file documented as of this encounter Visit Diagnoses Not on filedocumented in this encounter Care Teams Hydropress Operator Relationship Specialty Start Date End Date Isidro Galeano MD PCP - General INTERNAL MEDICINE 04/06/18 Isidro Galeano MD PCP - Med Group - [facility] Attributed Provider 10/15/18 08/17/20 documented as of this encounter
--- OUTSIDE RECORDS SUMMARY | 2024-10-19 13:17 | XMS_ITS | Encounter Summary ---
Author Organization [facility] [employer] [facility] Address [address] [place] [address] Care Team Providers Care Warehouse Checker Name Role Phone Ilan Gibbs MD Primary Care Provider [phone] Reason for Referral * Radiology Services (Routine) - Closed Specialty Diagnoses / Procedures Referred By Contac t Referred To Contact Diagnoses Breast cancer screening by mammogram Procedures MAMMO 3D CARMELA SCREEN BILAT W OR WO CAD CHG SCREENING MAMMOGRAPHY BI 2-VIEW BREAST INC CAD CHG SCREENING DIGITAL BREAST TOMOSYNTHESIS BI Christian Moore MD [address] [place] [address] Phone: tel: fax: [place] [phone] Referral ID Status Reason Start Date Expiration Date V isits Requested Visits Authorized [id number] Closed STL CTS 10/19/2024 11/19/2025 1 1 OPERATIONS LEAD Reason for Visit * Reason Comments Cancer Follow Up Encounter Details Date Type Department Care Team (Late st Contact Info) Description 10/19/2024 11:30 AM WEB OPERATIONS LEAD Office Visit [facility] Oncology and Hematology [place] [address] [facility] [address] [place] [address] Christian Moore MD [address] [place] [address] Non-Hodgkin's lymphoma, unspecified body region, unspecified non-Hodgkin lymphoma type (CMS/HCC) (Primary Dx); Breast cancer screening by mammogram Social History Tobacco Use Types Packs/Day Years [...] on file documented as of this encounter Last Filed Vital Signs Vital Sign Reading Time Taken Comments Blood Pressure 119/77 10/19/2024 11:48 AM WEB OPERATIONS LEAD Pulse 93 10/19/2024 11:48 AM WEB OPERATIONS LEAD Temperature 36.4 C (97.5 F) 10/19/2024 11:48 AM WEB OPERATIONS LEAD Respiratory Rate 15 10/19/2024 11:48 AM WEB OPERATIONS LEAD Oxygen Saturation 93% 10/19/2024 11:48 AM WEB OPERATIONS LEAD Inhaled Oxygen Concentration - - Weight 98.2 kg (216 lb 6.4 oz) 10/19/2024 11:48 AM WEB OPERATIONS LEAD Height - - Body Mass Index 36.01 04/04/2024 10:14 AM CDT documented in this encounter Progress Notes * Christian Moore MD - 10/19/2024 11:46 AM CST HEMATOLOGY / ONCOLOGY PROGRESS NOTE Patient Identification: Name: Veronica Merlos Age: 73 y.o. Sex: female : 1950 DIAGNOSIS Stage III non-Hodgkin follicular lymphoma status post left breast excisional biopsy done in July 03, 2021. CURRENT TREATMENT Surveillance TREATMENT HISTORY Status post chemotherapy with Bendamustine Rituxan x 6 completed May 27, 2022. SUBJECTIVE Patient came into the office for follow-up visit. She denies any night sweats fever chills and weight loss. Denies any new lumps bumps and lymphadenopathy. No other new complaints. Review of system Constitutional: Patient did not mention fevers, sweats, weight and appetite stable, denies any tiredness and fatigue HEENT: Patient did not mention sinus congestion, hearing or vision problems Respiratory: Patient did not mention cough, dyspnea, wheeze Cardiovascular: Patient did not mention chest pain, exertional chest pressure/discomfort, nausea, syncope, shortness of breath GI: Patient did not mention constipation, diarrhea, dsyphagia, reflux symptoms, vomiting, melena : Patient did not mention dysuria, frequency, incontinence, urgency Integumentary system: no lymphadenopathy, sweats, flushing Musculoskeletal: Patient not mention: myalgia, arthralgia Neurological: Patient did not mention blurry or disturbed vision, numbness/weakness, dizziness Skin: No lumps, bumps or rashes. 12 point review of system was reviewed Objective: Vital signs in last 24 hours: As per nursing note Exam: HEENT: Atraumatic, external ears normal, nose normal, oropharynx moist, no pharyngeal exudates. no sinus tenderness Neck- normal range of motion, no tenderness, supple Cardiovascular: Normal rate, normal rhythm, no murmurs, no gallops, no rubs GI: Soft, nondistended, normal bowel sounds, nontender, no splenomegaly, no hepatomegaly, no mass, no rebound, no guarding : No costovertebral angle tenderness Musculoskeletal: No edema, no tenderness, no deformities. Back- no tenderness Integument: Well hydrated, no rash, Digits and nails inspection normal Lymphatic: No lymphadenopathy noted Bilateral breast exam showed no masses and lymphadenopathy. Exam as above PATH LABS Labs from April 04 showed creatinine 0.7 total bilirubin 0.2 LDH 172 WBC 4.4 hemoglobin 12.4 platelet 1 81,000 Labs from October 19 showed creatinine 1.2 WBC 7.1 hemoglobin 12.4 platelet 233,000 neutrophils 70% lymphocyte 5% Assessment: Plan: There are no active problems to display for this patient. Stage III non-Hodgkin follicular lymphoma status post left breast excisional biopsy done in July 03, 2021. Status post left breast excisional biopsy done on July 03, 2021. Patient was found to have large retroperitoneal lymph node. She completed 6 cycles of chemotherapy with Bendamustine Rituxan May 27, 2022 and then 2 years of maintenance Rituxan in February 2024. CT scan chest abdomen and pelvis done on April 11, 2024 showed no evidence of lymphoma. There is no evidence of relapse of disease on my examination. Bilateral breast examination showed no masses and lymphadenopathy. I will order bilateral breast screening mammogram now. Follow-up with repeat labs in 6 months. Imaging studies will be done on symptoms basis. Type 2 diabetes. Stable on Glucotrol. Atrial fibrillation. Stable on Eliquis and digoxin. Essential tremor. Stable on primidone. Follow-up in 6 months. 10/19/2024 Christian Moore MD OPERATIONS LEAD documented in this encounter Plan of Treatment Upcoming Encounters Date Type Department Care Team (Late st Contact Info) Description 05/02/2025 11:00 AM CDT Office Visit [facility] Oncology and Hematology [facility] [address] [facility] [address] [place] [address] Christian Moore MD [address] [facility] [address] [place] [address] Scheduled Orders Name Type Priority Associated Diagnoses Orde r Schedule CBC WITH DIFFERENTIAL Lab Stat Non-Hodgkin's lymphoma, unspecified body region, unspecified non-Hodgkin lymphoma type (CMS/HCC) Expected: 04/21/2025, Expires: 10/19/2025 COMPREHENSIVE METABOLIC PANEL Lab Stat Non-Hodgkin's lymphoma, unspecified body region, unspecified non-Hodgkin lymphoma type (CMS/HCC) Expected: 04/21/2025, Expires: 10/19/2025 LACTATE DEHYDROGENASE Lab Routine Non-Hodgkin's lymphoma, unspecified body region, unspecified non-Hodgkin lymphoma type (CMS/HCC) Expected: 04/21/2025, Expires: 10/19/2025 MAMMO 3D CARMELA SCREEN BILAT W OR WO CAD Imaging Routine Breast cancer screening by mammogram 1 Occurrences starting 10/19/2024 until 04/21/2026 documented as of this encounter Visit Diagnoses Diagnosis Non-Hodgkin's lymphoma, unspecified body region, unspecified non-Hodgkin lymphoma type (CMS/HCC)- Primary Breast cancer screening by mammogram documented in this encounter Care Teams Warehouse Checker Relationship Specialty Start Date End Date Ilan Gibbs MD [address] [place] [id number] PCP - General Family Practice 04/04/24 documented as of this encounter
--- OUTSIDE RECORDS SUMMARY | 2024-10-19 13:17 | XMS_ITS | Clinical Summary ---
Author Organization [facility] Address [address] [place] [address] Care Team Providers Care Leaf Sucker Operator Name Role Phone sIidro Galeano MD Primary Care Provider Unavailab le Allergies Active Allergy Reactions Criticality Noted Date Comments Tape Itching 09/01/2018 Medications Misc. Devices (WALKER) MiscIndications:Ar thritis,TIA involving basilar artery,Generalized osteoarthritis of multiple sites Rollator walker with seat 1 each 12/15/19 21 Active Misc. Devices (COMMODE BEDSIDE) MiscIndications:Ar thritis,TIA involving basilar artery,Generalized osteoarthritis of multiple sites Use at bedside as needed 1 each 12/15/19 21 Active hydrocortisone 2.5 % cream MIX EQUAL AMOUNTS WITH KETOCONAZOLE TO PINK AREAS ONCE DAILY UNTIL CLEAR 02/07/20 21 Active ketoconazole 2 % cream APPLY WITH EQUAL AMOUNTS OF HYDROCORTISONE TO PINK AREAS ON FACE ONCE DAILY UNTIL SMOOTH 02/07/20 21 Active triamcinolone 0.1 % cream APPLY AND RUB IN A THIN FILM TO THE AFFECTED AREA ONCE DAILY UNTIL SMOOTH 02/07/20 21 Active Fexofenadine HCl (ASHELY OR) Take by mouth daily. Active fluticasone propionate 50 MCG/ACT nasal sprayIndications:A llergic rhinitis, unspecified seasonality, unspecified trigger 1 spray by Nasal route daily. 18.2 g 2 04/02/20 21 Active potassium chloride CR 20 MEQ tabletIndications: Hypokalemia Take 1 tablet (20 mEq total) by mouth 2 (two) times daily. 180 tablet 1 04/02/20 21 Active torsemide 20 MG tabletIndications: Primary hypertension Take 3 tablets (60 mg total) by mouth daily. 270 tablet 1 04/02/20 21 Active PRAVASTATIN 40 MG tabletIndications: Hyperlipidemia, unspecified hyperlipidemia type TAKE 1 TABLET(40 MG) BY MOUTH EVERY NIGHT AT BEDTIME 90 tablet 1 09/24/19 22 Active DULoxetine (CYMBALTA) 60 MG capsuleIndications :Fibromyalgia TAKE 1 CAPSULE(60 MG) BY MOUTH DAILY 90 capsule 1 03/27/20 22 Active ELIQUIS 5 MG tablet Take 5 mg by mouth 2 (two) times daily. 03/17/20 22 Active ondansetron (ZOFRAN) 8 MG tablet 03/04/20 22 Active prochlorperazine (COMPAZINE) 10 MG tablet 01/08/20 22 Active celecoxib (CELEBREX) 200 MG capsuleIndications :Fibromyalgia TAKE 1 CAPSULE(200 MG) BY MOUTH DAILY 90 capsule 1 04/08/20 22 Active dilTIAZem CD (CARDIZEM CD) 240 MG 24 hr capsuleIndications :Primary hypertension TAKE 2 CAPSULES BY MOUTH DAILY 180 capsule 04/11/20 22 Active traMADol (ULTRAM) 50 MG tabletIndications: Chronic Pain Indications: Chronic Pain TAKE 2 TABLETS BY MOUTH THREE TIMES DAILY NEEDED FOR CHRONIC PAIN, USE SPARINGLY, MUST LAST 30 DAYS 180 tablet 1 05/15/20 22 Active gabapentin (NEURONTIN) 300 MG capsuleIndications :Fibromyalgia TAKE 1 TABLET THREE TIMES A DAY. TAKE 1 CAPSULE BY MOUTH IN THE MORNING AND AFTERNOON AND ONE AT BEDTIME 270 capsule 1 06/12/20 22 Active Active Problems Problem Noted Date Diagnosed Date Left breast mass 06/26/2021 Allergic rhinitis, unspecifi ed seasonality, unspecified trigger 04/02/2021 Hypokalemia 04/02/2021 Type 2 diabetes mellitus wit h hyperglycemia, without long-term current use of insulin ([facility]) 04/02/2021 Personal history of nicotine dependence 04/02/20 21 Current every day smoker 04/02/2021 Post-menopausal 04/02/2021 Keratotic lesion 09/26/2020 Pre-diabetes 09/26/2020 Post herpetic neuralgia 03/25/2020 Other migraine without status migrainosus, not i ntractable 03/25/2020 H/O long-term treatment with high-risk medicatio n 05/31/2019 Cigarette smoker 02/16/2019 Fibromyalgia 09/01/2018 Chronic pain 06/02/2018 Vitamin D deficiency 05/27/2017 Arthritis 04/24/2015 Multiple thyroid nodules 01/10/2015 Thyroid cyst 11/10/2014 Thyroid nodule 11/10/2014 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 Fluid retention 04/10/2014 Generalized pain 04/10/2014 Morbid obesity ([facility]) 04/10/2014 Generalized osteoarthritis of multiple sites Carotid stenosis 11/03/2013 Peripheral neuropathy 06/24/2010 Hyperlipidemia 06/07/2010 Hypertension 06/07/2010 Resolved Problems Problem Noted Date Diagnosed Date Resolved Date Need for immunization against influenza 10/08/2021 10/14/2021 Preop examination 06/26/2021 07/01/2021 Encounter for screening mamm ogram for malignant neoplasm of breast 04/02/2021 04/08/2021 Fibromyalgia 06/24/2010 05/25/2019 Immunizations Name Administration Dates Next Due Fluzone High Dose - >Age 65 (Prefilled Syringe) 10/08/2021,05/24/2019 Influenza (Generic) 05/22/2013, 2,07/01/2011,2009,05/06/2009 Influenza Adult (Generic) 05/29/2020,,05/27/2017,2015 PFIZER COVID-19 (ORIGINAL FORMULATION, PURPLE CAP) mRNA, LNP-S, PF, 30 MCG/0.3 ML DOSE 10/12/2020,09/20/2020 Pneumococcal (Pneumovax 23) 07/01/2011 Pneumococcal (Prevnar 13) 05/19/2016 Tdap (Generic) 05/19/2016 Family History Medical History Relation Comments Osteoporosis Father Parkinson's Disease Father Diabetes Mother Parkinson's Disease Mother Breast Cancer Paternal Aunt Osteoporosis Paternal Aunt Breast Cancer Sister Relation Status Comments Father Mother Paternal Aunt Sister Social History Tobacco Use Types Packs/Day Years Used Date Smoking Tobacco: Every Day Cigarettes 1 50 Smokeless Tobacco: Never Tobacco Cessation:Ready to Q uit: No; Counseling Given: Yes Comments:provider will assess Alcohol Use Standard Drinks/Week Comments Yes 0 (1 standard drink = 0.6 oz pur e alcohol) 1-2 per month AUDIT-C Answer Date Recorded Frequency of Alcohol Consumption Never 05/24/2019 Average Number of Drinks Not on file 019 Frequency of Binge Drinking Not on file 03/2019 PHQ-2 Answer Date Recorded PHQ-2 Score - If the patient scores above 3, please move on to questions 3-9 0 04/08/2022 Comments No Sex and Gender Information Value Date Recorded Sex Assigned at Not on file Legal Sex Female 6:20 PM CDT Gender Identity Not on file Sexual Orientation Not on file Last Filed Vital Signs Vital Sign Reading Time Taken Comments Blood Pressure 124/66 04/08/2022 11:17 AM CDT Pulse 72 04/08/2022 11:17 AM CDT Temperature 36.7 C (98 F) 04/08/2022 11:17 AM CDT Respiratory Rate 18 04/08/2022 11:17 AM CDT Oxygen Saturation 96% 04/08/2022 11:17 AM CDT Inhaled Oxygen Concentration - - Weight 115.2 kg (254 lb) 04/08/2022 11:17 AM CDT Height 165.1 cm (5' 5 ) 06/26/2021 1:13 PM TECHNICAL REPORT WRITER Body Mass Index 42.27 06/26/2021 1:13 PM TECHNICAL REPORT WRITER Plan of Treatment Health Maintenance Due Date Last Done Comments ASCVD Statin 1950 Kidney Health Evaluation 1950 Hepatitis C 11/29/1967 Zoster Vaccines (1 of 2) 11/29/1999 RSV Immunization or 60+ Years (1 - Risk 60-74 years 1-dose series) 2009 Annual Medicare Wellness Visit 2014 Pneumococcal Vaccine: 65+ Years (3 of 3 - PPSV23 or PCV20) 05/19/2017 05/19/2016, 07/01/2011 Hemoglobin A1C 04/07/2022 10/08/2021, 03/17, 09/25/2020 ASCVD LDL 10/08/2022 10/08/2021, 020 04/2021, 05/30/2019, Additional history exists Lipid Panel 10/08/2022 10/08/2021, 0 04/2021, 05/30/2019, Additional history exists Colorectal Cancer Screening Colonoscopy (10 Years) 12/28/2022 12/28/2017, 12/28/2017, 07/18/2008 Mammogram Screening 05/30/2023 05/30/2021, 05/30/2021, 05/30/2021, Additional history exists Diabetes: Retinopathy Eye Exam 06/01/2023 06/01/2021 COVID-19 Vaccine ( season) 2024 07/26/2021, 10/12/2020, 09/20/2020 Influenza Adult (#1) 2024 10/08/2021, 05/29/2020, 05/24/2019, Additional history exists DTaP, Tdap and Td Vaccines (2 - Td or Tdap) 05/19/2026 05/19/2016 Dexa Scan (General) Completed 05/24/2021 Meningococcal B Vaccine Aged Out No l onger eligible based on patient's age to complete this topic Meningococcal Vaccine Aged Out No suraj jared eligible based on patient's age to complete this topic RSV Immunizations Under 20 Months Aged Out No longer eligible based on patient's age to complete this topic Procedures Procedure Name Priority Date/Time Associated Diagnosis Comments LIPID PANEL Routine 10/08/2021 12:05 PM TECHNICAL REPORT WRITER Hyperlipidemia, unspecified hyperlipidemia type HEMOGLOBIN, GLYCOSYLATED Routine 10/08/2021 12:05 PM TECHNICAL REPORT WRITER Type 2 diabetes mellitus with hyperglycemia, without long-term current use of insulin ([facility]) DIABETIC RETINOPATHY EXAM (NEGATIVE)(SCAN ORDER) Routine 06/01/2021 12:00 AM CDT MAMMOGRAM GENERIC (SCAN ORDER) 05/30/2021 BONE DENSITY GENERIC (SCAN ORDER) 05/24/2021 COLONOSCOPY Routine 12/28/2017 12:00 AM CDT from Last 3 Months or Most Recently Relevant to Health Maintenance Results * (ABNORMAL) HEMOGLOBIN, GLYCOSYLATED (10/08/2021 12:05 PM TECHNICAL REPORT WRITER) HGB A1C 6.4(H) 3.80 - 5.60 % 10/08/2021 6:57 PM TECHNICAL REPORT WRITER [facility] [place] ESTIMATED AVG GLUCOSE 137(H) 74 - 106 MG/DL 10/08/2021 6:57 PM TECHNICAL REPORT WRITER [facility] 10/08/2021 12:0 5 PM TECHNICAL REPORT WRITER Isidro Galeano MD LABORATORY Final Result Performing Organization Address City/[facility]/ZIP Co de Phone Number [facility] [place] [address] [place] [address], * (ABNORMAL) LIPID PANEL (10/08/2021 12:05 PM TECHNICAL REPORT WRITER) CHOLESTEROL 173 <200 MG/DL 10/08/2021 5:47 PM TECHNICAL REPORT WRITER [facility] TRIGLYCERIDES 125 <150 MG/DL 10/08/2021 5:47 PM TECHNICAL REPORT WRITER [facility] HDL 43 >40 MG/DL 10/08/2021 5:47 PM TECHNICAL REPORT WRITER [facility] LDL-C 105(H) <100 MG/DL 10/08/2021 5:47 PM TECHNICAL REPORT WRITER [facility] VLDL CALCULATION 25 5 - 28 MG/DL 10/08/2021 5:47 PM TECHNICAL REPORT WRITER [facility] CHOL/HDL RATIO 4.0 0.0 - 4.0 10/08/2021 5:47 PM TECHNICAL REPORT WRITER [facility] LDL/HDL 2.4(H) 0.41 - 2.13 10/08/2021 5:47 PM TECHNICAL REPORT WRITER [facility] NON HDL CHOLESTEROL 130 <140 MG/DL 10/08/2021 5:47 PM TECHNICAL REPORT WRITER [facility] 10/08/2021 12:0 5 PM TECHNICAL REPORT WRITER Isidro Galeano MD LABORATORY Final Result Performing Organization Address City/[facility]/ZIP Co de Phone Number [facility] [address] [place] [address], * DIABETIC RETINOPATHY EXAM (NEGATIVE)(SCAN) (06/01/2021 12:00 AM CDT) 06/01/2021 us Documents Scanned SCANNING Final Result Performing Organization Address City/[facility]/ZIP Co de Phone Number [facility] ON[facility] * MAMMOGRAM GENERIC (05/30/2021) Anatomical Region Laterality Modality Other 05/30/2021 Narrative 05/30/2021 Ordered by an unspecified provider. us Documents Scanned SCANNING Final Result * BONE DENSITY GENERIC (05/24/2021) Anatomical Region Laterality Modality Other 05/24/2021 Narrative 05/24/2021 Ordered by an unspecified provider. us Documents Scanned SCANNING Final Result * Colonoscopy (12/28/2017 12:00 AM CDT) 12/28/2017 12/28/2017 Narrative [facility] TO EPIC CONVERSION - 12/28/2017 12:00 AM CDT Documented hx of procedure Procedure Note Angel Cates MD - 06/20/2018 Documented hx of procedure us Generic Conversion Md CATES GI PROCEDURE ORDERABLES Final Result [facility] TO EPIC CONVERSION from Last 3 Months or Most Recently Relevant to Health Maintenance Insurance MED REPLACE [facility] MEDICARE Care Teams Leaf Sucker Operator Relationship Specialty Start Date End Date Isidro Galeano MD PCP - General INTERNAL MEDICINE 04/06/18
--- OUTSIDE RECORDS SUMMARY | 2024-10-19 13:17 | XMS_ITS | Data Portability ---
Author Organization [facility], [address] [facility] ([place]) Address [address] [place] [address] Care Team Providers Care Medical Auditor Name Role Phone NO PCP Primary Care Provider Assessment Encounter Date Assessment Date Assessment LastModified by Organization Details LastModified Time 02/23/2024 02/23/2024 HISTORY OF PRESE NT ILLNESS: Ms. Herlinda Alvarado is a 73-year-old female who presents unaccompanied for her cycle 11 of maintenance rituximab for stage III non-Hodgkin s lymphoma with large retroperitoneal, pelvic mass. The patient is overall doing well. Her left side leg swelling is better than previous but still has persistence and chronic venous stasis and skin changes. The patient does not use her compression stockings. The patient is planning to move to [place], [place] since most of the family is close to [place]. The patient does not have children but has other family members. The patient's cardioversion for A-fib has been stable last in September 2023. She continues to be on anticoagulation. The patient denies any worsening shortness of breath. She recently quit smoking 4 weeks ago. REVIEW OF SYSTEMS: CONST: Appetite unchanged. No weight loss or new pain. EYES: No visual change. ENT: Hearing normal. No swallowing difficulties. RESP: No shortness of breath, or new cough. CV: No chest pain, syncope, or increased edema. GI: No change in bowel habits. No blood in the stool. : No dysuria, hematuria, or flank pain. MSK: No new bone pain. SKIN: No rashes. NEURO: No headaches/dizzines s. H/L/IMM: No enlarged lymph nodes, easy bleeding, or bruising. Reviewed past medical history, surgical history, family history, social history. No changes except as noted. PHYSICAL EXAMINATION: CONST: Alert and oriented. Pleasant, appears to be of stated age, in no acute distress. EYES: No icterus. Extraocular movements are intact. No conjunctival pallor. ENT: Oral mucosa pink and moist with no oral ulcers. Neck: Supple, no palpable mass. RESP: The lungs are clear to auscultation without wheezes, rhonchi. CV: Heart rhythm is regular. GI: Abdomen soft, nontender; no hepatosplenomegaly . MSK: Head: Atraumatic. Normocephalic. No edema in lower extremities. SKIN: No jaundice. Warm, well perfused. No generalized skin rash. PSYCH: Stable mood and affect. Mental/emotional status is appropriate. NEURO: No speech difficulty. The patient is alert and oriented x3. No gross neurological deficits are noted. H/L/IMM: No palpable cervical, supraclavicular or axillary adenopathy. Performance status 1 to 2. DATA REVIEWED: Reviewed 12-point review of systems, past medical history, surgical history, family history, social history. No changes except as noted. ASSESSMENT: 1. 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 2. Chronic lower extremity edema left worse than right with history of congestive heart failure as well as left pelvic mass. 3. A-fib on anticoagulation post cardioversion October 15, 2023. 4. Coronary artery disease, hypertension, COPD, hyperlipidemia, osteoarthritis, recently quit smoking. PLAN: 1. Discussed with the patient the clinical symptoms, diagnosis, and plan. The patient had last imaging in October 2023 which was overall stable. She will be due for next imaging in April. The patient is moving in 2 days to [place], [place] and will establish with oncology there. She can pursue imaging there. The patient was told she would have 12 cycles of rituximab. Since she is moving, she can conclude now or can have additional 1 cycle in [address] [place]. 2. The patient's labs are overall stable including hemoglobin. 3. The patient continues to be in sinus rhythm now and on rate control as well as anticoagulation. 4. She is encouraged to establish with oncology and cardiology in addition to primary care. el bush Not available 02/23/2024 11:33:37 Plan of Treatment Reminders Order Date Submit Date Provider Last Modified By Organization Details Last Modified Time Details Appointments None recorded. Lab None recorded. Referral None recorded. Procedures None recorded. Surgeries None recorded. Imaging None recorded. Medication Orders glipizide 5 mg tablet 2023 024 [facility] [email or web address] [facility] #[id number], [address] [place], [place], [id number], 12:43:10 True Metrix Glucose Test Strip 2023 024 [facility] [employer] [facility] #[id number], [address] [place] [address], [place], [phone], 12:43:08 Patient TargetsNo targets recorded. Patient InstructionsNo instructions recorded. Reason for Referral None Reported. Results Created Date Observation Date Name Description Value Unit Range Abnormal Flag Note LastModifiedBy Organization Detail LastModifiedTime 12/30/1912/30/2023 CBC w/ auto diff CBC with differential Not Available [facility] [address] [place] [address], [id number], 12/30/2023 11:08:08 12/30/19 24 12/30/2023 CBC w/ auto diff WBC 4.5 K/uL 3.8-11 .2 Not Available [facility] [address] [place] [address], [id number], 12/30/2023 11:08:08 12/30/19 24 12/30/2023 CBC w/ auto diff RBC 4.01 M/uL 3.92-5 .10 Not Available [facility] [address] [place] [address], [id number], 12/30/2023 11:08:08 12/30/19 24 12/30/2023 CBC w/ auto diff HGB 12.6 g/dL 11.8-1 5.3 Not Available [facility] [address] [place] [address], [id number], 12/30/2023 11:08:08 12/30/19 24 12/30/2023 CBC w/ auto diff HCT 38.8 % 36.5-4 4.8 Not Available [facility] [address] [place] [address], [id number], 12/30/2023 11:08:08 12/30/19 24 12/30/2023 CBC w/ auto diff MCV 96.8 fL 80.0-9 9.0 Not Available [facility] [address] [place] [address], [id number], 12/30/2023 11:08:08 12/30/19 24 12/30/2023 CBC w/ auto diff MCH 31.4 pg 25.5-3 3.6 Not Available [facility] [address] [place] [address], [id number], 12/30/2023 11:08:08 12/30/19 24 12/30/2023 CBC w/ auto diff MCHC 32.5 g/dL 32.0-3 6.0 Not Available [facility] [address] [place] [address], [id number], 12/30/2023 11:08:08 12/30/19 24 12/30/2023 CBC w/ auto diff RDW-SD 49.1 fL 35.1 - 46.3 high Not Available [facility] [address] [place] [address], [id number], 12/30/2023 11:08:08 12/30/19 24 12/30/2023 CBC w/ auto diff plt 189 K/uL 130-40 0 Not Available [facility] [address] [place] [address], [id number], 12/30/2023 11:08:08 12/30/19 24 12/30/2023 CBC w/ auto diff MPV 8.7 fL 9.3-12 .8 low Not Available [facility] [address] [place] [address], [id number], 12/30/2023 11:08:08 12/30/19 24 12/30/2023 CBC w/ auto diff jalen% 66.2 % 39.8-7 1.3 Not Available [facility] [address] [place] [address], [id number], 12/30/2023 11:08:08 12/30/19 24 12/30/2023 CBC w/ auto diff lym% 12.0 % 19.2-4 7.1 low Not Available [facility] [address] [place] [address], [id number], 12/30/2023 11:08:08 12/30/19 24 12/30/2023 CBC w/ auto diff mono% 17.4 % 1.7-12 .0 high Not Available [facility] [address] [place] [address], [id number], 12/30/2023 11:08:08 12/30/19 24 12/30/2023 CBC w/ auto diff eos% 2.4 % 0.0-12 .0 Not Available [facility] [address] [place] [address], [id number], 12/30/2023 11:08:08 12/30/19 24 12/30/2023 CBC w/ auto diff baso% 0.9 % 0.0-3. 0 Not Available [facility] [address] [place] [address], [id number], 12/30/2023 11:08:08 12/30/19 24 12/30/2023 CBC w/ auto diff abs jalen 3.0 K/uL 1.8-7. 5 Not Available [facility] [address] [place] [address], [id number], 12/30/2023 11:08:08 12/30/19 24 12/30/2023 CBC w/ auto diff abs lym 0.5 K/uL 1.1-3. 3 low Not Available [facility] [address] [place] [address], [id number], 12/30/2023 11:08:08 12/30/19 24 12/30/2023 CBC w/ auto diff abs mono 0.8 K/uL 0.1-1. 0 Not Available [facility] [address] [place] [address], [id number], 12/30/2023 11:08:08 12/30/19 24 12/30/2023 CBC w/ auto diff abs eos 0.1 K/uL 0.0-0. 7 Not Available [facility] [address] [place] [address], [id number], 12/30/2023 11:08:08 12/30/19 24 12/30/2023 CBC w/ auto diff abs baso 0.0 K/uL 0.0-0. 2 Not Available [facility] [address] [place] [address], [id number], 12/30/2023 11:08:08 12/30/19 24 12/30/2023 CBC w/ auto diff imm. gran % 1.1 % 0.0-3. 0 Not Available [facility] [address] [place] [address], [id number], 12/30/2023 11:08:08 12/30/19 24 12/30/2023 CBC w/ auto diff NRBC % 0.0 % 0.0-0. 2 Not Available [facility] [address] [place] [address], [id number], 12/30/2023 11:08:08 12/30/19 24 12/30/2023 BMP, blood basic met panel; istat Not Available [facility] [address] [place] [address], [id number], 12/30/2023 11:12:23 12/30/19 24 12/30/2023 BMP, blood sodium 141 mmol/ L 136-14 6 Not Available [facility] [address] [place] [address], [id number], 12/30/2023 11:12:23 12/30/19 24 12/30/2023 BMP, blood potassium 4.3 mmol/ L 3.5-5. 1 Not Available [facility] [address] [place] [address], [id number], 12/30/2023 11:12:23 12/30/19 24 12/30/2023 BMP, blood chloride 101 mmol/ L 98-110 Not Available [facility] [address] [place] [address], [id number], 12/30/2023 11:12:23 12/30/19 24 12/30/2023 BMP, blood ion. calcium 4.9 mg/dL 4.5-5. 3 Not Available [facility] [address] [place] [address], [id number], 12/30/2023 11:12:23 12/30/19 24 12/30/2023 BMP, blood CO2 28 mmol/ L 20-32 Not Available [facility] [address] [place] [address], [id number], 12/30/2023 11:12:23 12/30/19 24 12/30/2023 BMP, blood glucose 141 mg/dL 70-100 high Not Available [facility] [address] [place] [address], [id number], 12/30/2023 11:12:23 12/30/19 24 12/30/2023 BMP, blood BUN 14 mg/dL 7-21 Not Available [facility] [address] [place] [address], [id number], 12/30/2023 11:12:23 12/30/19 24 12/30/2023 BMP, blood creatinine 0.7 mg/dL 0.7-1. 3 Not Available [facility] [address] [place] [address], [id number], 12/30/2023 11:12:23 12/30/19 24 12/30/2023 BMP, blood eGFR;non-afr ican cayman islander 87 Not Available [facility] [address] [place] [address], [id number], 12/30/2023 11:12:23 12/30/19 24 12/30/2023 BMP, blood eGFR; 105 (QUALITATIVE FIELD PROJECT MANAGER NEVA KIDNE Y DISEA SE HAS A GFR LESS THAN 60 ML/NY N/1.7 3 MM FOR A PERIO D OF THREE MONTH S OR MORE. ) Not Available [facility] [address] [place] [address], [id number], 12/30/2023 11:12:23 12/30/19 24 12/30/2023 hepat ic funct ion panel , serum liver function panel Not Available [facility] [address] [place] [address], [id number], 12/30/2023 12:50:39 12/30/19 24 12/30/2023 hepat ic funct ion panel , serum albumin 4.3 g/dL 3.5-5. 3 Not Available [facility] [address] [place] [address], 49545, 12/30/2023 12:50:39 12/30/19 24 12/30/2023 hepat ic funct ion panel , serum direct bilirubin 0.1 mg/dL 0.1-0. 5 Not Available [facility] [address] [place] [address], 30915, 12/30/2023 12:50:39 12/30/19 24 12/30/2023 hepat ic funct ion panel , serum indirect bilirubin 0.2 mg/dL 0.1-0. 6 Not Available [facility] [address] [place] [address], 47251, 12/30/2023 12:50:39 12/30/19 24 12/30/2023 hepat ic funct ion panel , serum total bilirubin 0.3 mg/dL 0.2-1. 0 Not Available [facility] [address] [place] [address], 08603, 12/30/2023 12:50:39 12/30/19 24 12/30/2023 hepat ic funct ion panel , serum ALP 78 U/L 44 - 127 Not Available [facility] [address] [place] [address], 68483, 12/30/2023 12:50:39 12/30/19 24 12/30/2023 hepat ic funct ion panel , serum AST (SGOT) 21 U/L 10-40 Not Available [facility] [address] [place] [address], [id number], 12/30/2023 12:50:39 12/30/19 24 12/30/2023 hepat ic funct ion panel , serum ALT (SGPT) 31 U/L 8-35 Not Available [facility] [address] [place] [address], [id number], 12/30/2023 12:50:39 12/30/19 24 12/30/2023 hepat ic funct ion panel , serum total protein 6.4 g/dL 6.4-8. 3 Not Available [facility] [address] [place] [address], 10971, 12/30/2023 12:50:39 02/17/20 24 02/17/2024 hemog lobin A1C, finge rstic k fingerstick A1C endo Not Available [facility] [address] [place] [address], [id number], 02/17/2024 12:13:06 02/17/20 24 02/17/2024 hemog lobin A1C, finge rstic k hemoglobin A1C, finger 7.1 %_A1C 4.3 - 5.6 high Not Available [facility] [address] [place] [address], [id number], 02/17/2024 12:13:06 02/17/20 24 02/17/2024 hemog lobin A1C, finge rstic k fingerstick estimated ave 157 Not Available [facility] [address] [place] [address], 66265, 02/17/2024 12:13:06 02/23/20 24 02/23/2024 CBC w/ auto diff CBC with differential Not Available [facility] [address] [place] [address], [id number], 02/23/2024 10:24:41 02/23/20 24 02/23/2024 CBC w/ auto diff WBC 3.4 K/uL 3.8-11 .2 low Not Available [facility] [address] [place] [address], 69796, 02/23/2024 10:24:41 02/23/20 24 02/23/2024 CBC w/ auto diff RBC 3.87 M/uL 3.92-5 .10 low Not Available [facility] [address] [place] [address], [id number], 02/23/2024 10:24:41 02/23/20 24 02/23/2024 CBC w/ auto diff HGB 11.9 g/dL 11.8-1 5.3 Not Available [facility] [address] [place] [address], [id number], 02/23/2024 10:24:41 02/23/20 24 02/23/2024 CBC w/ auto diff HCT 36.9 % 36.5-4 4.8 Not Available [facility] [address] [place] [address], [id number], 02/23/2024 10:24:41 02/23/20 24 02/23/2024 CBC w/ auto diff MCV 95.3 fL 80.0-9 9.0 Not Available [facility] [address] [place] [address], 49831, 02/23/2024 10:24:41 02/23/20 24 02/23/2024 CBC w/ auto diff MCH 30.7 pg 25.5-3 3.6 Not Available [facility] [address] [place] [address], [id number], 02/23/2024 10:24:41 02/23/20 24 02/23/2024 CBC w/ auto diff MCHC 32.2 g/dL 32.0-3 6.0 Not Available [facility] [address] [place] [address], [id number], 02/23/2024 10:24:41 02/23/20 24 02/23/2024 CBC w/ auto diff RDW-SD 46.1 fL 35.1 - 46.3 Not Available [facility] [address] [place] [address], [id number], 02/23/2024 10:24:41 02/23/20 24 02/23/2024 CBC w/ auto diff plt 183 K/uL 130-40 0 Not Available [facility] [address] [place] [address], [id number], 02/23/2024 10:24:41 02/23/20 24 02/23/2024 CBC w/ auto diff MPV 9.2 fL 9.3-12 .8 low Not Available [facility] [address] [place] [address], [id number], 02/23/2024 10:24:41 02/23/20 24 02/23/2024 CBC w/ auto diff jalen% 63.1 % 39.8-7 1.3 Not Available [facility] [address] [place] [address], 33442, 02/23/2024 10:24:41 02/23/20 24 02/23/2024 CBC w/ auto diff lym% 11.3 % 19.2-4 7.1 low Not Available [facility] [address] [place] [address], [id number], 02/23/2024 10:24:41 02/23/20 24 02/23/2024 CBC w/ auto diff mono% 17.2 % 1.7-12 .0 high Not Available [facility] [address] [place] [address], 35096, 02/23/2024 10:24:41 02/23/20 24 02/23/2024 CBC w/ auto diff eos% 5.2 % 0.0-12 .0 Not Available [facility] [address] [place] [address], [id number], 02/23/2024 10:24:41 02/23/20 24 02/23/2024 CBC w/ auto diff baso% 1.2 % 0.0-3. 0 Not Available [facility] [address] [place] [address], [id number], 02/23/2024 10:24:41 02/23/20 24 02/23/2024 CBC w/ auto diff abs jalen 2.2 K/uL 1.8-7. 5 Not Available [facility] [address] [place] [address], [id number], 02/23/2024 10:24:41 02/23/20 24 02/23/2024 CBC w/ auto diff abs lym 0.4 K/uL 1.1-3. 3 low Not Available [facility] [address] [place] [address], [id number], 02/23/2024 10:24:41 02/23/20 24 02/23/2024 CBC w/ auto diff abs mono 0.6 K/uL 0.1-1. 0 Not Available [facility] [address] [place] [address], [id number], 02/23/2024 10:24:41 02/23/20 24 02/23/2024 CBC w/ auto diff abs eos 0.2 K/uL 0.0-0. 7 Not Available [facility] [address] [place] [address], [id number], 02/23/2024 10:24:41 02/23/20 24 02/23/2024 CBC w/ auto diff abs baso 0.0 K/uL 0.0-0. 2 Not Available [facility] [address] [place] [address], 46702, 02/23/2024 10:24:41 02/23/20 24 02/23/2024 CBC w/ auto diff imm. gran % 2.0 % 0.0-3. 0 Not Available [facility] [address] [place] [address], 13605, 02/23/2024 10:24:41 02/23/20 24 02/23/2024 CBC w/ auto diff NRBC % 0.0 % 0.0-0. 2 Not Available [facility] [address] [place] [address], 21445, 02/23/2024 10:24:41 02/23/20 24 02/23/2024 BMP, blood basic met panel; istat Not Available [facility] [address] [place] [address], 93249, 02/23/2024 10:24:44 02/23/20 24 02/23/2024 BMP, blood sodium 140 mmol/ L 136-14 6 Not Available [facility] [address] [place] [address], 63084, 02/23/2024 10:24:44 02/23/20 24 02/23/2024 BMP, blood potassium 3.8 mmol/ L 3.5-5. 1 Not Available [facility] [address] [place] [address], 12221, 02/23/2024 10:24:44 02/23/20 24 02/23/2024 BMP, blood chloride 103 mmol/ L 98-110 Not Available [facility] [address] [place] [address], 48086, 02/23/2024 10:24:44 02/23/20 24 02/23/2024 BMP, blood ion. calcium 4.9 mg/dL 4.5-5. 3 Not Available [facility] [address] [place] [address], 20782, 02/23/2024 10:24:44 02/23/20 24 02/23/2024 BMP, blood CO2 23 mmol/ L 20-32 Not Available [facility] [address] [place] [address], 30933, 02/23/2024 10:24:44 02/23/20 24 02/23/2024 BMP, blood glucose 158 mg/dL 70-100 high Not Available [facility] [address] [place] [address], [id number], 02/23/2024 10:24:44 02/23/20 24 02/23/2024 BMP, blood BUN 16 mg/dL 7-21 Not Available [facility] [address] [place] [address], [id number], 02/23/2024 10:24:44 02/23/20 24 02/23/2024 BMP, blood creatinine 0.7 mg/dL 0.7-1. 3 Not Available [facility] [address] [place] [address], 64669, 02/23/2024 10:24:44 02/23/20 24 02/23/2024 BMP, blood eGFR;non-afr ican cayman islander 87 Not Available [facility] [address] [place] [address], 31678, 02/23/2024 10:24:44 02/23/20 24 02/23/2024 BMP, blood eGFR; 105 (QUALITATIVE FIELD PROJECT MANAGER NEVA KIDNE Y DISEA SE HAS A GFR LESS THAN 60 ML/NY N/1.7 3 MM FOR A PERIO D OF THREE MONTH S OR MORE. ) Not Available [facility] [address] [place] [address], [id number], 02/23/2024 10:24:44 02/23/20 24 02/23/2024 hepat ic funct ion panel , serum liver function panel Not Available [facility] [address] [place] [address], 85058, 02/23/2024 12:57:57 02/23/20 24 02/23/2024 hepat ic funct ion panel , serum albumin 4.2 g/dL 3.5-5. 3 Not Available [facility] [address] [place] [address], 05515, 02/23/2024 12:57:57 02/23/20 24 02/23/2024 hepat ic funct ion panel , serum direct bilirubin 0.1 mg/dL 0.1-0. 5 Not Available [facility] [address] [place] [address], 29050, 02/23/2024 12:57:57 02/23/20 24 02/23/2024 hepat ic funct ion panel , serum indirect bilirubin 0.2 mg/dL 0.1-0. 6 Not Available [facility] [address] [place] [address], 67788, 02/23/2024 12:57:57 02/23/20 24 02/23/2024 hepat ic funct ion panel , serum total bilirubin 0.3 mg/dL 0.2-1. 0 Not Available [facility] [address] [place] [address], 96769, 02/23/2024 12:57:57 02/23/20 24 02/23/2024 hepat ic funct ion panel , serum ALP 66 U/L 44 - 127 Not Available [facility] [address] [place] [address], 84068, 02/23/2024 12:57:57 02/23/20 24 02/23/2024 hepat ic funct ion panel , serum AST (SGOT) 16 U/L 10-40 Not Available [facility] [address] [place] [address], [id number], 02/23/2024 12:57:57 02/23/20 24 02/23/2024 hepat ic funct ion panel , serum ALT (SGPT) 23 U/L 8-35 Not Available [facility] [address] [place] [address], 23121, 02/23/2024 12:57:57 02/23/20 24 02/23/2024 hepat ic funct ion panel , serum total protein 6.1 g/dL 6.4-8. 3 low Not Available [facility] [address] [place] [address], 52299, 02/23/2024 12:57:57 Result Notes None recorded. Problems Name Problem SNOMED Code Status Onset Date Resolution Date Notes Provider Name and Address Organization Details Recorded Time Candidiasi s of finger web 640650906 Active 2024 Rosi Washko null, [facility] 5 09:18:22 Arthritis 6582263 [facility] Peripheral sensory neuropathy 352645043 Active 2023 Christine torrez null, [facility] 4 10:15:59 Hypokalemi a 50483344 [facility] 10:31[facility]38 Hyperlipid emia 07437001 [facility] 10:16[facility]33 Atrial fibrillati on 15325568 Active 2023 Christine torrez null, [facility] 4 10:17:05 Type 2 diabetes mellitus 97958245 Active 2023 with hyperglyce helder Christine torrez [facility] 4 10:17:27 Essential tremor 546910263 Active 2023 bilateral hands Christine torrez [facility] 4 10:31:59 Benign essential hypertensi on 9424318 Active 2023 Christine torrez [facility] 4 10:17:45 Coronary arterioscl erosis 59317339 Active 2023 Christine torrez [facility] 4 10:18:25 Follicular lymphoma 905258885 Active 2023 Debbie Szymanskiley [facility] 4 17:50:03 Pain in limb 91107314 Active 2023 Myrna Mcbride [facility] 14:35:17 Problem Notes None recorded. Procedures Surgical History Date Name Laterality Status Provider Name and Address Organization Details Recorded Time 01/07/20 24 SC Infusaport Nurse Tx active Katrin Jackson [facility] 01/07/2024 14:32:41 Colonoscopy with biopsy completed Not Available Health Note 12/23/2023 11:54:36 Removal of gallbladder completed Not Available Health Note 12/23/2023 11:54:36 Imaging Results None recorded. Procedure Notes None recorded. Medical Equipment None Reported. Allergies Allergen ID Allergen Name Allergen Category Reaction Reaction Severity Criticality Documentation Date Start Date Code Code System Note Provider Name and Address Organization Details Recorded Time 510581 adhesive tape environme nt,medica tion rash Not available Not available 09/14/20232007 92740 UNK React ion: Rash; Itchi ng; Comme nt: Adhes valentino Tape ; Not Available Not Available Not Available Medications Name Sig Start Date Stop Date Status Note LastModified by Organization Details LastModified Time lancet ultra thin 30g mis active Not Available Not Available Not Available [facility] ultra thin lancets 30g USE TO TEST TWICE DAILY active Not Available Not Available No t Available celecoxib 200 mg capsule TAKE 1 CAPSULE BY MOUTH EVERY DAY active Not Available Not Available No t Available primidone 50 mg tablet TAKE 2 TABLETS BY MOUTH AT BEDTIME active Not Available Not Available No t Available torsemide 20 mg tablet TAKE 2 TABLETS BY MOUTH DAILY active Not Available Not Available No t Available pravastatin 40 mg tablet TAKE 1 TABLET BY MOUTH EVERY DAY AT BEDTIME active Not Available Not Available No t Available diltiazem ER 360 mg capsule,24 hr,extended release TAKE 1 CAPSULE BY MOUTH DAILY IN THE MORNING active Not Available Not Available No t Available tramadol 50 mg tablet TAKE 2 TABLETS BY MOUTH THREE TIMES DAILY NEEDED active Not Available Not Available No t Available amoxicillin 875 mg tablet TAKE 1 TABLET BY MOUTH EVERY 12 HOURS active Not Available Not Available No t Available potassium chloride ER 20 mEq tablet,exte nded release(par t/cryst) TAKE 2 TABLETS BY MOUTH DAILY active Not Available Not Available No t Available gabapentin 300 mg capsule TAKE 1 CAPSULE BY MOUTH THREE TIMES DAILY active Not Available Not Available No t Available hydrocortis one 2.5 % topical cream MIX EQUAL AMOUNTS WITH KETOCONAZ OLE AND APPLY A SMALL AMOUNT TO PINK AREAS ONCE DAILY UNTIL CLEAR active Not Available Not Available No t Available mupirocin 2 % topical ointment APPLY A 1:1 RATIO WITH KETOCONAZ OLE CREAM TWICE DAILY TO CRUSTED AREAS. active Not Available Not Available No t Available digoxin 125 mcg (0.125 mg) tablet TAKE 1 TABLET BY MOUTH DAILY active Not Available Not Available No t Available metoprolol succinate ER 25 mg tablet,exte nded release 24 hr TAKE 1 TABLET BY MOUTH EVERY DAY active Not Available Not Available No t Available ketoconazol e 2 % topical cream MIX 1:1 WITH MUPIROCIN AND APPLY TO CRUSTED AREAS TWICE DAILY active Not Available Not Available No t Available glipizide 5 mg tablet TAKE 1 TABLET BY MOUTH BEFORE BREAKFAST AND 1/2 TABLET BY MOUTH BEFORE SUPPER 2023 active Not Available Not Available Not Avai lable ciprofloxac in 0.3 %-dexametha sone 0.1 % ear drops,suspe nsion ADMINISTE R 4 DROPS IN EACH EAR EVERY 12 HOURS X 10 DAYS active Not Available Not Available No t Available duloxetine 60 mg capsule,del ayed release TAKE 1 CAPSULE BY MOUTH EVERY DAY active Not Available Not Available No t Available Ultra Thin Lancets 30 gauge USE TO TEST TWICE DAILY active Not Available Not Available No t Available Eliquis 5 mg tablet TAKE 1 TABLET BY MOUTH TWICE DAILY active Not Available Not Available No t Available potassium chloride ER 20 mEq tablet,exte nded release TAKE 2 TABLETS BY MOUTH EVERY DAY active Not Available Not Available No t Available True Metrix Glucose Test Strip Test blood sugar twice daily 2023 active Not Available Not Available Not Avai lable True Metrix Glucose Meter USE TO TEST BLOOD SUGAR TWICE DAILY active Not Available Not Available No t Available BinaxNOW COVID-19 Ag Self Test kit TEST DIRECTED TODAY 01/05 completed Not Available Not Available Not Available Vitals Date Recorded Heart rate Oxygen saturation Oxygen saturation in Arterial blood by Pulse oximetry Respiratory rate Body temperature Body weight Systolic blood pressure Diastolic blood pressure Provider Name and Address Organization Details Last Updated DateTime 4 83 /min 94 % 94 % 16 /min 97.5 [degF] 550204. 51 g 150 mm[Hg] 72 mm[Hg] Katrin Renetta [facility] 4 14:30:35 Date Recorded Body weight Heart rate Systolic blood pressure Diastolic blood pressure Provider Name and Address Organization Details Last Updated DateTime 02/17/2024 35154.14 g 76 /min 122 mm[Hg] 62 mm[Hg] Rosalina borges [facility] 02/17/2024 12:13:48 Date Recorded Oxygen saturation Oxygen saturation in Arterial blood by Pulse oximetry Heart rate Respiratory rate Body temperature Body weight Systolic blood pressure Diastolic blood pressure Provider Name and Address Organization Details Last Updated DateTime 4 95 % 95 % 70 /min 18 /min 97.7 [degF] 63311.5 4 g 124 mm[Hg] 70 mm[Hg] Maggie Regan [facility] 4 10:33:08 Social History Question Answer Notes LastModified by Organizat ion Details LastModified Time Do You Have An Advance Directive? No [email or web address] Information not available 02/21/2024 What Is Your Level Of Alcohol Consumption? Occasional [email or web address] Information not available 02/21/2024 How Many Times Per Week Do You Consume Alcohol? Less Than 1 Time Per Week [email or web address] Information not available 02/21/2024 What Is Your Level Of Caffeine Consumption? Moderate [email or web address] Information not available 02/21/2024 Are You Currently Employed? 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 1-2 Times Per Week [email or web address] Information not available 02/21/2024 Smokeless Tobacco? Former Smokeless Tobacco User [email or web address] Information not available 02/21/2024 How Long Have You Smoked? Age Of 19 [email or web address] Information not available 12/23/2023 When Did You Quit Smoking? 2 Months Ago [email or web address] Information not available 02/21/2024 Do You Have A Medical Power Of Slubber Tender? No [email or web address] Information not available 02/21/2024 What Was The Date Of Your Most Recent Tobacco Screening? 02/23/2024 [email or web address] Information not available 02/21/2024 What Is Your Relationship Status? [email or web address] Information not available 02/21/2024 Do You Use Any Illicit Or Recreational Drugs? No [email or web address] Information not available 02/21/2024 Sex: Unknown Functional Status Question Answer Note LastModified by Organization D etails LastModified Time What is your exercise level? Moderate [email or web address] Information not available 02/21/2024 Mental Status None recorded. Family History Relationship Description Onset Age of this Age Resolved Age Notes LastModified by Organization Details LastModified Time Paternal Grandfather Arthritis [email or web address] Not available 03/2024 11:54:35 Paternal Grandfather Osteoporosis [email or web address] Not available 0 12/23/2023 11:54:35 Mother Family history of malignant neoplasm [email or web address] Not available 2023 11:54:35 Mother Diabetes mellitus [email or web address] Not available 2023 11:54:35 Sister Family history of malignant neoplasm [email or web address] Not available 2023 11:54:35 Sister Diabetes mellitus [email or web address] Not available 2023 11:54:35 Brother Diabetes mellitus [email or web address] Not available 2023 11:54:35 Brother Hypertensive disorder [email or web address] Not available 2023 11:54:35 Father Arthritis [email or web address] Not available 02/21/2024 10:29:38 Unspecified Relation Hypercholest erolemia [email or web address] Not available 2023 10:29:38 Medical History Condition Response Anxiety Disorder N Diabetes Y Bleeding Disorder N Attention-deficit Hyperactivity Disorder N High Blood Pressure Y Arthritis Y Hyperlipidemia N Cancer Y Thyroid Problems N Stroke N COPD N Depression N Asthma N Seizures N Anemia N Heart Disease N Fibromyalgia N Osteoporosis Y Kidney Disease N Gynecological HistoryNo gynecological history recorded. Obstetrics History GPAL:G 0 P 0 0 0 0 Immunizations Vaccine Type Date Status Note Provider Nam e and Address Organization Details Recorded Time Influenza, high-dose, quadrivalent, PF 2 [facility] 12:13[facility]56 Influenza, high-dose, quadrivalent, PF 3 completed [facility] 12:13:56 Influenza, high-dose, quadrivalent, PF 2 completed [facility] 12:13:56 Influenza, adjuvanted, quadrivalent, PF 0 completed [facility] 12:13:56 COVID-19, mRNA, LNP-S, PF, 30 mcg/0.3 mL dose 1 completed [place] [facility] 12:13:56 COVID-19, mRNA, LNP-S, PF, 30 mcg/0.3 mL dose 1 completed [facility] 12:13:56 COVID-19, mRNA, LNP-S, PF, 30 mcg/0.3 mL dose 1 completed [facility] 12:13:56 COVID-19, mRNA, LNP-S, bivalent, PF, 30 mcg/0.3 mL dose 2 completed [facility] 12:13:56 RSV, bivalent, protein subunit RSVpreF, diluent reconstituted, 0.5 mL, PF [facility] 12:13:56 COVID-19, mRNA, LNP-S, PF, dhaval-sucrose, 30 mcg/0.3 mL 3 completed [facility]/17/[facility]24 12:13:56 Tdap 6 [facility] 12:13:56 Influenza, high-dose, trivalent, PF 9 [facility] 02/17/2024 12:13:56 Influenza, high-dose, trivalent, PF 7 [facility] 12:13:56 Influenza, high-dose, trivalent, PF 8 completed [facility]24 12:13:56 Influenza, high-dose, trivalent, PF 6 [facility] 12:13:56 Influenza, split virus, trivalent, preservative 3 completed [facility]24 12:13:56 Influenza, split virus, trivalent, preservative 2 completed [facility]24 12:13:56 Past Encounters Encounter ID Performer Location Encounter Start Date Encounter Closed Date Diagnosis/Indication Diagnosis SNOMED-CT Code Diagnosis ICD10 Code Diagnosis Note [id number] Mere Asif, TAXI DANCER, SUPERVISOR [employer] [address] ([place]) [address] [place] [address] 12/30/2023 10:48:22 12/30/2023 13:52:08 Follicular lymphoma 931887078 C82.90 [id number] Piper Driver MD [address] Internal Medicine ([place]) [address] [facility],[address] [place] [address] 01/06/2024 15:54:27 01/06/2024 18:04:01 Atrial fibrillation 02399153 I48.91 Benign ess ential hypertension 6275426 I10 Hyperlipidemia 10010440 E78.5 Peripheral sensory neuropathy 421318016 G62.9 Type 2 brianna betes mellitus 48641027 E11.9 Follicular lymphoma 3081 43958 C82.90 [id number] Anna Arvizu MD [address] ([place]) [address] [place] [address] 01/07/2024 10:57:17 01/23/2024 22:47:52 [id number] Shreyas Samaniego er, TAXI DANCER, DNP, SUPERVISOR [employer] [facility] ([place]) [address] [place] [address] 02/17/2024 12:07:39 02/17/2024 17:59:49 Type 2 diabetes mellitus 02598138 E11.9 73-year-ol d female with history of type 2 diabetes. A1c today 7.1%. This is a good improvemen t in her A1c. She is reporting blood sugars in the 120-130 range in the morning. She denies hypoglycem ia. We reviewed the symptoms of hypoglycem ia and she should let me know if she is experienci ng the symptoms. Not recommend changes to her medication s today. She will continue glipizide 5 mg with breakfast and 2.5 mg with supper. I do want her to continue checking her blood sugars twice daily due to the risk of hypoglycem ia with sulfonylur eas. A refill has been sent for test trips to her pharmacy.Haleigh messi is in the process of moving to the [facility] to an independen t/assisted living facility. She plans on getting a primary care provider there. I explained the patient that her blood sugars are well-contr olled and if her primary care provider is comfortabl e managing her diabetes I am fine with her following up with primary care. I also advised patient that we are not here if needed and can assist if blood sugars become more uncontroll ed. [id number] Anna Arvizu MD [address] [facility] ([place]) [address], [place] [address] 02/23/2024 10:01:12 02/23/2024 13:39:02 Follicular lymphoma 716051312 C82.90 Health Concerns Section Related Observation LastModified by Organization Detai ls LastModified Time None Recorded Concern Status LastModified by Organization Details LastModified Time None Recorded Advance Directives Directive N: Payers Encounter Date Sequence Insurance Name Policy Number Policy Cedeno Covered Member ID Cedeno Member ID Guarantor Name 01/07/2024 1 [employer] (MEDICARE REPLACEMENT PPO) [id number] Veronica Merlos [id number] Veronica Merlos 02/17/2024 1 [employer] (MEDICARE REPLACEMENT PPO) [id number] Veronica Moorean [id number] Veronica Moorean 02/23/2024 1 [employer] (MEDICARE REPLACEMENT PPO) [id number] Veronica Merlos [id number] Veronica Merlos Notes Date Note Type Note Provider Name and Address Organization Details Recorded Time 02/17/2024 text/html Ms. Merlos is a 73-year-old female who presents as a new patient for management of type 2 diabetes. Her other medical history includes non-Hodgkin's lymphoma, A-fib status post cardioversion currently in sinus rhythm, hypertension, hyperlipidemia, neuropathy. Patient's in November from cancer. She is planning on moving to the [facility] at an assisted living facility. The patient was diagnosed with diabetes in 2022. A1c 7.1% Current diabetes management Glipizide 5mg AM, 2.5mg PM Blood glucose is being tested 2 times per day. She did not have blood sugar readings with her today. She reports morning readings are in the 120-130 range. Evening blood sugars are more variable according to the patient. The patient is reporting no hypoglycemic events. MEAL PATTERN: 3 meals per day. Sometimes skips supper if she eats a large lunch. Drinks water, coffee, juice sometimes. Diabetes complications: No diabetic retinopathy. Neuropathy related to a back surgery. No nephropathy Hypoglycemia awareness in tact Hypertension. Currently takes metoprolol, diltiazem, furosemide Hyperlipidemia. Currently takes pravastatin Shreyas James, TAXI DANCER, DNP, SUPER[employer] [address] [place] [address], [phone], [facility] 02/17/2024 13:55:14 02/23/2024 text/html Diagnosis 1. Left breast mass questionable for atypical lymphoid tissue, May 2021. 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 2. COPD, chronic active smoker 80 pack year history. 3. Hypertension, hyperlipidemia, fibromyalgia, osteoarthritis, chronic left lower extremity swelling. Treatment history 1. Left breast excisional biopsy July 03, 2021. 2. Chemotherapy Bendamustine rituximab started January 07, 2022- May 2022; 6 cycles - maintenance July 2022 till February 2024 12 cycles Chief complaint: Follow-up of follicular neoplasia in situ. Oncology history 1. The patient has been undergoing's routine screening mammogram in in May 2021 was noted to have asymmetry in the left breast, was recommended diagnostic evaluation which was done on May 30 and a 4 mm hypoechoic mass at 1 o'clock position 1 cm from nipple was noted. She underwent biopsy on 06/04/2021 which was consistent with atypical lymphoid's tissue suspicious for low-grade lymphoma. The patient was seen by breast surgeon with plans for excisional biopsy due to inadequate diagnosis. The patient had CT scanning of the lungs performed 04/17/2021 for lung cancer screening and was noted to have mildly enlarged left axillary lymph node. She was recommended to have a follow-up imaging in [address] scans and is noted to have a large extraperitoneal mass in the right pelvic area approximately 10 cm abutting the sacrum and displacing the blood vessels. She does have chronic lower extremity edema. PAST MEDICAL, FAMILY AND/OR SOCIAL HISTORY: Past History: See diagnoses list. History of cholecystectomy and lower back surgery. Family History: Patient's father had history of chronic leukemia and Parkinson's. 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 She does not have children. Health maintenance The patient had Pap smear 4 years ago and colonoscopy 5 years ago. Anna Arvizu MD [address] [place] [address], [phone], [facility] 02/23/2024 21:42:14 OBGyn Episode No OBEpisode recorded.
--- OUTSIDE RECORDS SUMMARY | 2024-10-19 13:17 | XMS_ITS | Continuity of Care Document ---
Author Name Auto Generated, Auto Generated Organization [employer] Support Name Relationship Address Phone Felipa Arroyo Emergency Contact 1 Unknown [phone] Torin Dai & Leena Brother Unknown Unavaila ble Veronica Locke Financial Responsibl e [employer] [address] [place] [address] Unavailable Veronica Locke Self [address] [place] [address] Unavailable CruzFelipa Friend Unknown [phone] Torin Dai & Leena Emergency Contact 2 Unknown U navailable Summary Purpose Consult/Referral Allergies, Adverse Reactions, Alerts No Known Allergies Medications No Known Medications Conditions/Problems No Known Problems Procedures No Known Procedures
[2024-10-19 16:44] LABS: Alanine Aminotransferase 30 U/L (6-35); Albumin Level 3.9 g/dL (3.5-5.1); Alkaline Phosphatase 85 U/L (38-126); Anion Gap 9 mmol/L (4-12); Aspartate Amino Transferase 33 U/L (14-36); Bilirubin,Total 0.3 mg/dL (0.2-1.3); Blood Urea Nitrogen 38 mg/dL (7-17); Calcium 9.5 mg/dL (8.4-10.2); Carbon Dioxide 33 mmol/L (22-30); Chloride 99 mmol/L (98-107); Estimated Glomerular Filt Rate 57; Glucose 146 mg/dL (65-110); Lactate Dehydrogenase 241 U/L (120-246); Potassium 4.1 mmol/L (3.4-5.0); Sodium 141 mmol/L (137-145)
== END 2024-10-19 11:33 | disposition home or self-care (01) ==
LOC: ANHLAB 11:33
PROVIDERS: PCP Family Medicine; Visit Provider Internal Medicine Hematology & Oncology
DX: C85.90 Non-Hodgkin lymphoma, unspecified, unspecified site (principal)
CPT/HCPCS: 36415; 80047; 80053; 83615; 85025

== ENCOUNTER 2025-02-01 11:03 | Outpatient (CLI) | payer MEDICARE, SELFPAY ==
[2025-02-01 12:22] LABS: Anion Gap 9 mmol/L (4-12); Blood Urea Nitrogen 14 mg/dL (7-17); Calcium 9.1 mg/dL (8.4-10.2); Carbon Dioxide 28 mmol/L (22-30); Chloride 104 mmol/L (98-107); Estimated Glomerular Filt Rate > 60; Glucose 145 mg/dL (65-110); Potassium 3.9 mmol/L (3.4-5.0); Sodium 141 mmol/L (137-145)
[2025-02-01 12:24] LABS: Digoxin 0.7 ng/mL (0.8-2.0)
--- OUTSIDE RECORDS SUMMARY | 2025-02-01 12:25 | XMS_ITS | Clinical Summary ---
Author Organization [facility] Address [address] [place] [address] Care Team Providers Care High School Foreign Language Tutor Name Role Phone Isidro Galeano MD Primary [...] hyperglycemia, without long-term current use of insulin ([facility]) 04/02/2021 Personal history of nicotine dependence 04/02/20 [...] retention 04/10/2014 Generalized pain 04/10/2014 Morbid obesity 04/10/2014 Generalized osteoarthritis of multiple sites Carotid stenosis 11/03/2013 Peripheral neuropathy 06/24/2010 Hyperlipidemia 06/07/2010 Hypertension 06/07/2010 Resolved Problems Problem Noted Date Diagnosed Date Resolved Date Need for immunization against influenza 10/08/2021 10/14/2021 Preop examination 06/26/2021 07/01/2021 Encounter for screening mamm ogram for malignant neoplasm of breast 04/02/2021 04/08/2021 Fibromyalgia 06/24/2010 05/25/2019 Immunizations Immunization Administration Dates Next Due Fluzone High Dose [...] Frequency of Binge Drinking Not on file 1003/2019 PHQ-2 Answer Date Recorded PHQ-2 Score - [...] 11:17 AM CDT Height 165.1 cm (5' 5) 06/26/2021 1:13 PM APPLICATION SECURITY ENGINEER Body Mass Index 42.27 06/26/2021 1:13 PM APPLICATION SECURITY ENGINEER Plan of Treatment Health Maintenance Due Date Last Done Comments ASCVD Statin 1950 Kidney Health Evaluation 1950 Hepatitis C 11/29/1967 Zoster Vaccines (1 of 2) 11/29/1999 Annual Medicare Wellness Visit 2014 Pneumococcal Vaccine: 50+ Years (3 of 3 - PCV20 or PCV21) 05/19/2021 05/19/2016, 07/01/2011 Hemoglobin A1C 04/07/2022 10/08/2021, 03/17, 09/25/2020 ASCVD LDL 10/08/2022 10/08/2021, 02/0 04/2021, 05/30/2019, Additional history exists Lipid Panel 10/08/2022 10/08/2021, 02/0 04/2021, 05/30/2019, Additional history exists Colorectal Cancer Screening Colonoscopy (10 Years) 12/28/2022 12/28/2017, 12/28/2017, 07/18/2008 Diabetes: Retinopathy Eye Exam 06/01/2023 06/01/2021 COVID-19 Vaccine ( season) 2024 07/26/2021, 10/12/2020, 09/20/2020 RSV Immunization or 60+ Years (1 - 1-dose 75+ series) 2024 DTaP, Tdap and Td Vaccines (2 - [...] Comments LIPID PANEL Routine 10/08/2021 12:05 PM APPLICATION SECURITY ENGINEER Hyperlipidemia, unspecified hyperlipidemia type HEMOGLOBIN, GLYCOSYLATED Routine 10/08/2021 12:05 PM APPLICATION SECURITY ENGINEER Type 2 diabetes mellitus with hyperglycemia, without long-term current use of insulin DIABETIC RETINOPATHY EXAM (NEGATIVE)(SCAN ORDER) Routine 06/01/2021 12:00 AM CDT BONE DENSITY GENERIC (SCAN ORDER) 05/24/2021 COLONOSCOPY Routine 12/28/2017 12:00 AM CDT from Last 3 Months or Most Recently Relevant to Health Maintenance Results * (ABNORMAL) HEMOGLOBIN, GLYCOSYLATED (10/08/2021 12:05 PM APPLICATION SECURITY ENGINEER) HGB A1C 6.4(H) 3.80 - 5.60 % 10/08/2021 6:57 PM APPLICATION SECURITY ENGINEER -MICHELLE GRANADOS ESTIMATED AVG GLUCOSE 137(H) 74 - 106 MG/DL 10/08/2021 6:57 PM APPLICATION SECURITY ENGINEER [facility] MICHELLE SOUZA 10/08/2021 12:0 5 PM APPLICATION SECURITY ENGINEER us Isidro Galeano MD LABORATORY Final Result -[facility] [address] [place] [address], * (ABNORMAL) LIPID PANEL (10/08/2021 12:05 PM APPLICATION SECURITY ENGINEER) CHOLESTEROL 173 <200 MG/DL 10/08/2021 5:47 PM APPLICATION SECURITY ENGINEER [facility] TRIGLYCERIDES 125 <150 MG/DL 10/08/2021 5:47 PM APPLICATION SECURITY ENGINEER [facility] HDL 43 >40 MG/DL 10/08/2021 5:47 PM APPLICATION SECURITY ENGINEER [facility] LDL-C 105(H) <100 MG/DL 10/08/2021 5:47 PM APPLICATION SECURITY ENGINEER [facility] VLDL CALCULATION 25 5 - 28 MG/DL 10/08/2021 5:47 PM APPLICATION SECURITY ENGINEER [facility] CHOL/HDL RATIO 4.0 0.0 - 4.0 10/08/2021 5:47 PM APPLICATION SECURITY ENGINEER [facility] LDL/HDL 2.4(H) 0.41 - 2.13 10/08/2021 5:47 PM APPLICATION SECURITY ENGINEER [facility] NON HDL CHOLESTEROL 130 <140 MG/DL 10/08/2021 5:47 PM APPLICATION SECURITY ENGINEER [facility] 10/08/2021 12:0 5 PM APPLICATION SECURITY ENGINEER Isidro Galeano MD LABORATORY Final Result [facility] [address] [place] [address], * DIABETIC RETINOPATHY EXAM (NEGATIVE)(SCAN) (06/01/2021 12:00 AM CDT) 06/01/2021 us Documents Scanned SCANNING Final Result [facility] ON[facility] * BONE DENSITY GENERIC (05/24/2021) Anatomical Region [...] Relevant to Health Maintenance Insurance MED REPLACE [facility] MEDICARE Care Teams High School Foreign Language Tutor Relationship Specialty Start Date End Date Isidro Galeano MD PCP - General INTERNAL MEDICINE 04/06/18
--- OUTSIDE RECORDS SUMMARY | 2025-02-01 12:25 | XMS_ITS | Referral Summary ---
Author Organization [facility] [address] Address [address] [place] [address] Care Team Providers Care Frontload Driver Name Role Phone Ilan Gibbs MD Primary Care Provider [phone] Allergies Active Allergy Reactions Criticality Noted Date [...] on file Legal Sex Female 1:02 PM GUIDE DELEGATE Gender Identity Not on file Sexual Orientation Not on file Last Filed Vital Signs Vital Sign Reading Time Taken Comments Blood Pressure 110/66 08/15/2024 8:33 AM GUIDE DELEGATE Pulse - - Temperature - - Respiratory Rate - - Oxygen Saturation 96% 08/15/2024 8:33 AM GUIDE DELEGATE Inhaled Oxygen Concentration - - Weight 98.8 kg (217 lb 14.4 oz) 08/15/2024 8:33 AM GUIDE DELEGATE Height 167.6 cm (5' 6) 08/15/2024 8:33 AM GUIDE DELEGATE Body Mass Index 35.17 08/15/2024 8:33 AM GUIDE DELEGATE Plan of Treatment Not on file Insurance [employer] MEDICARE Care Teams Frontload Driver Relationship Specialty Start Date End Date Ilan Gibbs MD [address] [place] [address] PCP - General Family Practice 08/15/24
--- OUTSIDE RECORDS SUMMARY | 2025-02-01 12:25 | XMS_ITS | Encounter Summary ---
Author Organization [facility] Address [address] [place] [address] Care Team Providers Care Frame Stripper Name Role Phone Isidro Galeano MD Primary Care Provider Unavailab Isidro Evans MD Unavailable Unavailable Encounter Details Date Type Department Care Team (Latest Contact Info) Description 05/12/2018 Abstract [facility] Angel Ayala MD Social History [...] on filedocumented in this encounter Care Teams Frame Stripper Relationship Specialty Start Date End Date Isidro Galeano MD PCP - General INTERNAL MEDICINE 04/06/18 Isidro Galeano MD PCP - Med Group - [facility] Attributed Provider 10/15/18 08/17/20 documented as of this encounter
--- OUTSIDE RECORDS SUMMARY | 2025-02-01 12:25 | XMS_ITS | Clinical Summary ---
Author Organization [facility] [address] Address [address] [place] [address] Care Team Providers Care Progress Man Name Role Phone Ilan Gibbs MD Primary Care Provider [phone] Allergies Active Allergy Reactions Criticality Noted Date [...] lymphoma 09/02/2024 PAF (paroxysmal atrial fibrillation) 08/15/2024 Medical History Medical History Date Comments Atrial [...] on file Legal Sex Female 1:02 PM [employer]IM[employer]UEL TICK[employer] Gender Identity Not on file Sexual Orientation Not on file Obstetrics History Last Filed Vital Signs Vital Sign Reading Time Taken Comments Blood Pressure 110/66 08/15/2024 8:33 AM PARIMUTUEL TICKET CASHIER Pulse - - Temperature - - Respiratory Rate - - Oxygen Saturation 96% 08/15/2024 8:33 AM PARIMUTUEL TICKET CASHIER Inhaled Oxygen Concentration - - Weight 98.8 kg (217 lb 14.4 oz) 08/15/2024 8:33 AM PARIMUTUEL TICKET CASHIER Height 167.6 cm (5' 6) 08/15/2024 8:33 AM PARIMUTUEL TICKET CASHIER Body Mass Index 35.17 08/15/2024 8:33 AM PARIMUTUEL TICKET CASHIER Plan of Treatment Health Maintenance Due Date Last Done Comments Colon Cancer Screening-Colonoscopy 1950 Depression Screening 1950 Fall Risk Assessment 1950 Hepatitis C Screening 1950 Osteoporosis Screening-Bone Density Scan 1950 Hepatitis B Screening 11/29/1967 Zoster Vaccine (1 of 2) 1968 Well Visit 65+ 2014 Pneumococcal vaccine 65+ (3 of 3 - PPSV23, PCV20 or PCV21) 07/14/2016 05/19/2016, 07/01/2011 Covid-19 Vaccine (7 - Pfizer risk season) 2024 05/13/2024, 05/13/2023, 05/15/2022, Additional history exists Influenza Vaccine (Season Ended) 2025 05/13/2023, 06/30/2022, 10/08/2021, Additional history exists DTaP/Tdap/Td Vaccine (2 - Td or Tdap) 05/19/2026 05/19/2016 Insurance [employer] MEDICARE Care Teams Progress Man Relationship Specialty Start Date End Date Ilan Gibbs MD [address] [place] [address] PCP - General Family Practice 08/15/24
--- OUTSIDE RECORDS SUMMARY | 2025-02-01 12:25 | XMS_ITS | Clinical Summary ---
Author Organization [facility] Address [address] [place] [address] Care Team Providers Care Wind Up Worker Name Role Phone Ilan Gibbs MD Primary Care Provider [phone] Allergies No known active allergies Medications celecoxib [...] Encounters Date Type Department Care Team Description 01/10/2025 External Device Data [facility] ABSTRACTION Provider, Abstract 01/05/2025 External Device Data [facility]STRACTION Provider, Abstract 01/04/2025 External Device Data [facility]STRACTION Provider, Abstract 01/03/2025 External Device Data [facility]STRACTION Provider, Abstract 11/02/2024 External Device Data [facility]STRACTION Provider, Abstract [...] Comments Blood Pressure 119/77 10/19/2024 11:48 AM PRODUCTION STATISTICAL CLERK Pulse 93 10/19/2024 11:48 AM PRODUCTION STATISTICAL CLERK Temperature 36.4 C (97.5 F) 10/19/2024 11:48 AM PRODUCTION STATISTICAL CLERK Respiratory Rate 15 10/19/2024 11:48 AM PRODUCTION STATISTICAL CLERK Oxygen Saturation 93% 10/19/2024 11:48 AM PRODUCTION STATISTICAL CLERK Inhaled Oxygen Concentration - - Weight 98.2 kg (216 lb 6.4 oz) 10/19/2024 11:48 AM PRODUCTION STATISTICAL CLERK Height 165.1 cm (5' 5) 04/04/2024 10:14 AM CDT Body Mass Index 36.01 04/04/2024 10:14 AM CDT Plan of Treatment Upcoming Encounters Date Type Department Care Team (Late st Contact Info) Description 05/02/2025 11:00 AM CDT Office Visit [facility] Oncology and Hematology - [place] [address] [place] [address] Christian Moore MD [address] [facility] [address] [place] [address] Health Maintenance Due Date Last Done Comments DIABETES ANNUAL FOOT EXAM 11/29/1967 DIABETES ANNUAL RETINAL EXAM 11/29/1967 DIABETES MICROALBUMIN ANNUAL SCREEN 11/29/1967 LDL CHOLESTEROL ANNUAL 11/29/1967 FIT-DNA Q 3 years 1994 FIT/FOBT Q [...] 2024 05/13/2023, 05/15/2022, 07/26/2021, Additional history exists RSV VACCINE (60+ or ) (1 - 1-dose 75+ series) 2024 DTAP/TDAP/TD VACCINES (2 - T d or Tdap) 05/19/2026 05/19/2016 OSTEOPOROSIS SCREENING 05/24/2026 05/24/2021 COLORECTAL SCREENING 12/29/2027 12/28/2017 Colorectal Cancer Screening 12/29/2027 Insurance [employer] PPO MCR Care Teams Wind Up Worker Relationship Specialty Start Date End Date Ilan Gibbs MD [address] [place] [id number] PCP - General Family Practice 04/04/24
--- OUTSIDE RECORDS SUMMARY | 2025-02-01 12:25 | XMS_ITS | Encounter Summary ---
Author Organization [facility] Address [address] [place] [address] Care Team Providers Care Fleet Technician Name Role Phone Isidro Galeano MD Primary Care Provider Unavailab Isidro Evans MD Unavailable Unavailable Encounter Details Date Type Department Care Team (Late st Contact Info) Description 10/31/2017 Abstract [facility] CONVERSION [address] [place] [address] , Generic ConversionMD Social History Tobacco Use [...] on filedocumented in this encounter Care Teams Fleet Technician Relationship Specialty Start Date End Date Isidro Galeano MD PCP - General INTERNAL MEDICINE 04/06/18 Isidro Galeano MD PCP - Med [facility] - [facility] Attributed Provider 10/15/18 08/17/20 documented as of this encounter
--- OUTSIDE RECORDS SUMMARY | 2025-02-01 12:25 | XMS_ITS | Data Portability ---
Author Organization [facility], [address] [facility] ([place]) Address [address] [place] [address] Care Team Providers Care Yarn Spooler Name Role Phone NO PCP Primary Care [...] The patient is planning to move to [place], [place] since most of the family is close to [place]. The patient does not have children but [...] patient is moving in 2 days to [place], [place] and will establish with oncology there. She can pursue imaging there. The patient was told she would have 12 cycles of rituximab. Since she is moving, she can conclude now or can have additional 1 cycle in 8 weeks in [place]. 2. The patient's labs are overall stable [...] Orders glipizide 5 mg tablet 2023 024 [facility] [employer] [facility] #[id number], [address] [place], [place], [phone], 12:43:10 True Metrix Glucose Test Strip 2023 024 [facility] #[id number], [address] [place], [place], [phone], 12:43:08 Patient TargetsNo targets recorded. Patient InstructionsNo instructions recorded. Reason for Referral None Reported. Results Created Date Observation Date Name Description Value Unit Range Abnormal Flag Note LastModifiedBy Organization Detail LastModifiedTime 12/30/1912/30/2023 CBC w/ auto diff CBC with differential Not Available [facility] [address] [place] [address], [id number], 12/30/2023 11:08:08 12/30/19 24 12/30/2023 CBC w/ auto diff WBC 4.5 K/uL 3.8-11 .2 Not Available [facility] [address] [place] [address], [id number], 12/30/2023 11:08:08 12/30/19 24 12/30/2023 CBC w/ auto diff RBC 4.01 M/uL 3.92-5 .10 Not Available [facility] [address] [place] [address], [id number], 12/30/2023 11:08:08 12/30/19 24 12/30/2023 CBC w/ auto diff HGB 12.6 g/dL 11.8-1 5.3 Not Available [facility] [address] [place] [address], [id number], 12/30/2023 11:08:08 12/30/19 24 12/30/2023 CBC w/ auto diff HCT 38.8 % 36.5-4 4.8 Not Available [facility] [address] [place] [address], [id number], 12/30/2023 11:08:08 12/30/19 24 12/30/2023 CBC w/ auto diff MCV 96.8 fL 80.0-9 9.0 Not Available [facility] [address] [place] [address], [id number], 12/30/2023 11:08:08 12/30/19 24 12/30/2023 CBC w/ auto diff MCH 31.4 pg 25.5-3 3.6 Not Available [facility] [address] [place] [address], [id number], 12/30/2023 11:08:08 12/30/19 24 12/30/2023 CBC w/ auto diff MCHC 32.5 g/dL 32.0-3 6.0 Not Available [facility] [address] [place] [address], [id number], 12/30/2023 11:08:08 12/30/19 24 12/30/2023 CBC w/ auto diff RDW-SD 49.1 fL 35.1 - 46.3 high Not Available [facility] [address] [place] [address], [id number], 12/30/2023 11:08:08 12/30/19 24 12/30/2023 CBC w/ auto diff plt 189 K/uL 130-40 0 Not Available [facility] [address] [place] [address], [id number], 12/30/2023 11:08:08 12/30/19 24 12/30/2023 CBC w/ auto diff MPV 8.7 fL 9.3-12 .8 low Not Available [facility] [address] [place] [address], [id number], 12/30/2023 11:08:08 12/30/19 24 12/30/2023 CBC w/ auto diff jalen% 66.2 % 39.8-7 1.3 Not Available [facility] [address] [place] [address], [id number], 12/30/2023 11:08:08 12/30/19 24 12/30/2023 CBC w/ auto diff lym% 12.0 % 19.2-4 7.1 low Not Available [facility] [address] [place] [address], [id number], 12/30/2023 11:08:08 12/30/19 24 12/30/2023 CBC w/ auto diff mono% 17.4 % 1.7-12 .0 high Not Available [facility] [address] [place] [address], [id number], 12/30/2023 11:08:08 12/30/19 24 12/30/2023 CBC w/ auto diff eos% 2.4 % 0.0-12 .0 Not Available [facility] [address] [place] [address], [id number], 12/30/2023 11:08:08 12/30/19 24 12/30/2023 CBC w/ auto diff baso% 0.9 % 0.0-3. 0 Not Available [facility] [address] [place] [address], [id number], 12/30/2023 11:08:08 12/30/19 24 12/30/2023 CBC w/ auto diff abs jalen 3.0 K/uL 1.8-7. 5 Not Available [facility] [address] [place] [address], [id number], 12/30/2023 11:08:08 12/30/19 24 12/30/2023 CBC w/ auto diff abs lym 0.5 K/uL 1.1-3. 3 low Not Available [facility] [address] [place] [address], [id number], 12/30/2023 11:08:08 12/30/19 24 12/30/2023 CBC w/ auto diff abs mono 0.8 K/uL 0.1-1. 0 Not Available [facility] [address] [place] [address], 53330, 12/30/2023 11:08:08 12/30/19 24 12/30/2023 CBC w/ auto diff abs eos 0.1 K/uL 0.0-0. 7 Not Available [facility] [address] [place] [address], [id number], 12/30/2023 11:08:08 12/30/19 24 12/30/2023 CBC w/ auto diff abs baso 0.0 K/uL 0.0-0. 2 Not Available [facility] [address] [place] [address], [id number], 12/30/2023 11:08:08 12/30/19 24 12/30/2023 CBC w/ auto diff imm. gran % 1.1 % 0.0-3. 0 Not Available [facility] [address] [place] [address], 26621, 12/30/2023 11:08:08 12/30/19 24 12/30/2023 CBC w/ auto diff NRBC % 0.0 % 0.0-0. 2 Not Available [facility] [address] [place] [address], [id number], 12/30/2023 11:08:08 12/30/19 24 12/30/2023 BMP, blood basic met panel; istat Not Available [facility] [address] [place] [address], 41101, 12/30/2023 11:12:23 12/30/19 24 12/30/2023 BMP, blood sodium 141 mmol/ L 136-14 6 Not Available [facility] [address] [place] [address], 87732, 12/30/2023 11:12:23 12/30/19 24 12/30/2023 BMP, blood potassium 4.3 mmol/ L 3.5-5. 1 Not Available [facility] [address] [place] [address], 33356, 12/30/2023 11:12:23 12/30/19 24 12/30/2023 BMP, blood chloride 101 mmol/ L 98-110 Not Available [facility] [address] [place] [address], 12928, 12/30/2023 11:12:23 12/30/19 24 12/30/2023 BMP, blood ion. calcium 4.9 mg/dL 4.5-5. 3 Not Available [facility] [address] [place] [address], 09615, 12/30/2023 11:12:23 12/30/19 24 12/30/2023 BMP, blood CO2 28 mmol/ L 20-32 Not Available [facility] [address] [place] [address], 39407, 12/30/2023 11:12:23 12/30/19 24 12/30/2023 BMP, blood glucose 141 mg/dL 70-100 high Not Available [facility] [address] [place] [address], 96976, 12/30/2023 11:12:23 12/30/19 24 12/30/2023 BMP, blood BUN 14 mg/dL 7-21 Not Available [facility] [address] [place] [address], [id number], 12/30/2023 11:12:23 12/30/19 24 12/30/2023 BMP, blood creatinine 0.7 mg/dL 0.7-1. 3 Not Available [facility] [address] [place] [address], 86505, 12/30/2023 11:12:23 12/30/19 24 12/30/2023 BMP, blood eGFR;non-afr ican honduran 87 Not Available [facility] - [facility] [address] [place] [address], 21550, 12/30/2023 11:12:23 12/30/19 24 12/30/2023 BMP, blood eGFR; 105 (BIOMECHANICAL ENGINEER NEVA KIDNE Y DISEA SE HAS A GFR LESS THAN 60 ML/MO N/1.7 3 MM FOR A PERIO D OF THREE MONTH S OR MORE. ) Not Available [facility] [address] [place] [address], 38731, 12/30/2023 11:12:23 12/30/19 24 12/30/2023 hepat ic funct ion panel , serum liver function panel Not Available [facility] [address] [place] [address], 09472, 12/30/2023 12:50:39 12/30/19 24 12/30/2023 hepat ic funct ion panel , serum albumin 4.3 g/dL 3.5-5. 3 Not Available [facility] [address] [place] [address], 08280, 12/30/2023 12:50:39 12/30/19 24 12/30/2023 hepat ic funct ion panel , serum direct bilirubin 0.1 mg/dL 0.1-0. 5 Not Available [facility] [address] [place] [address], 75027, 12/30/2023 12:50:39 12/30/19 24 12/30/2023 hepat ic funct ion panel , serum indirect bilirubin 0.2 mg/dL 0.1-0. 6 Not Available [facility] [address] [place] [address], [id number], 12/30/2023 12:50:39 12/30/19 24 12/30/2023 hepat ic funct ion panel , serum total bilirubin 0.3 mg/dL 0.2-1. 0 Not Available [facility] [address] [place] [address], 44173, 12/30/2023 12:50:39 12/30/19 24 12/30/2023 hepat ic funct ion panel , serum ALP 78 U/L 44 - 127 Not Available [facility] [address] [place] [address], 23633, 12/30/2023 12:50:39 12/30/19 24 12/30/2023 hepat ic funct ion panel , serum AST (SGOT) 21 U/L 10-40 Not Available [facility] [address] [place] [address], 00612, 12/30/2023 12:50:39 12/30/19 24 12/30/2023 hepat ic funct ion panel , serum ALT (SGPT) 31 U/L 8-35 Not Available [facility] [address] [place] [address], 01095, 12/30/2023 12:50:39 12/30/19 24 12/30/2023 hepat ic funct ion panel , serum total protein 6.4 g/dL 6.4-8. 3 Not Available [facility] [address] [place] [address], 71534, 12/30/2023 12:50:39 02/17/20 24 02/17/2024 hemog lobin A1C, finge rstic k fingerstick A1C endo Not Available [facility] [address] [place] [address], 81093, 02/17/2024 12:13:06 02/17/20 24 02/17/2024 hemog lobin A1C, finge rstic k hemoglobin A1C, finger 7.1 %_A1C 4.3 - 5.6 high Not Available [facility] [address] [place] [address], 46469, 02/17/2024 12:13:06 02/17/20 24 02/17/2024 hemog lobin A1C, finge rstic k fingerstick estimated ave 157 Not Available [facility] [address] [place] [address], 78985, 02/17/2024 12:13:06 02/23/20 24 02/23/2024 CBC w/ auto diff CBC with differential Not Available [facility] [address] [place] [address], 10247, 02/23/2024 10:24:41 02/23/20 24 02/23/2024 CBC w/ auto diff WBC 3.4 K/uL 3.8-11 .2 low Not Available [facility] [address] [place] [address], 40942, 02/23/2024 10:24:41 02/23/20 24 02/23/2024 CBC w/ auto diff RBC 3.87 M/uL 3.92-5 .10 low Not Available [facility] [address] [place] [address], 91539, 02/23/2024 10:24:41 02/23/20 24 02/23/2024 CBC w/ auto diff HGB 11.9 g/dL 11.8-1 5.3 Not Available [facility] [address] [place] [address], 06992, 02/23/2024 10:24:41 02/23/20 24 02/23/2024 CBC w/ auto diff HCT 36.9 % 36.5-4 4.8 Not Available [facility] [address] [place] [address], 40065, 02/23/2024 10:24:41 02/23/20 24 02/23/2024 CBC w/ auto diff MCV 95.3 fL 80.0-9 9.0 Not Available [facility] [address] [place] [address], 47263, 02/23/2024 10:24:41 02/23/20 24 02/23/2024 CBC w/ auto diff MCH 30.7 pg 25.5-3 3.6 Not Available [facility] [address] [place] [address], 68177, 02/23/2024 10:24:41 02/23/20 24 02/23/2024 CBC w/ auto diff MCHC 32.2 g/dL 32.0-3 6.0 Not Available [facility] [address] [place] [address], 49874, 02/23/2024 10:24:41 02/23/20 24 02/23/2024 CBC w/ auto diff RDW-SD 46.1 fL 35.1 - 46.3 Not Available [facility] [address] [place] [address], 44609, 02/23/2024 10:24:41 02/23/20 24 02/23/2024 CBC w/ auto diff plt 183 K/uL 130-40 0 Not Available [facility] [address] [place] [address], 30844, 02/23/2024 10:24:41 02/23/20 24 02/23/2024 CBC w/ auto diff MPV 9.2 fL 9.3-12 .8 low Not Available [facility] [address] [place] [address], 89223, 02/23/2024 10:24:41 02/23/20 24 02/23/2024 CBC w/ auto diff jalen% 63.1 % 39.8-7 1.3 Not Available [facility] [address] [place] [address], 26564, 02/23/2024 10:24:41 02/23/20 24 02/23/2024 CBC w/ auto diff lym% 11.3 % 19.2-4 7.1 low Not Available [facility] [address] [place] [address], 40939, 02/23/2024 10:24:41 02/23/20 24 02/23/2024 CBC w/ auto diff mono% 17.2 % 1.7-12 .0 high Not Available [facility] [address] [place] [address], 98528, 02/23/2024 10:24:41 02/23/20 24 02/23/2024 CBC w/ auto diff eos% 5.2 % 0.0-12 .0 Not Available [facility] [address] [place] [address], 94795, 02/23/2024 10:24:41 02/23/20 24 02/23/2024 CBC w/ auto diff baso% 1.2 % 0.0-3. 0 Not Available [facility] [address] [place] [address], 25582, 02/23/2024 10:24:41 02/23/20 24 02/23/2024 CBC w/ auto diff abs jalen 2.2 K/uL 1.8-7. 5 Not Available [facility] [address] [place] [address], 60370, 02/23/2024 10:24:41 02/23/20 24 02/23/2024 CBC w/ auto diff abs lym 0.4 K/uL 1.1-3. 3 low Not Available [facility] [address] [place] [address], 83507, 02/23/2024 10:24:41 02/23/20 24 02/23/2024 CBC w/ auto diff abs mono 0.6 K/uL 0.1-1. 0 Not Available [facility] [address] [place] [address], 57268, 02/23/2024 10:24:41 02/23/20 24 02/23/2024 CBC w/ auto diff abs eos 0.2 K/uL 0.0-0. 7 Not Available [facility] [address] [place] [address], 88613, 02/23/2024 10:24:41 02/23/20 24 02/23/2024 CBC w/ auto diff abs baso 0.0 K/uL 0.0-0. 2 Not Available [facility] [address] [place] [address], 16803, 02/23/2024 10:24:41 02/23/20 24 02/23/2024 CBC w/ auto diff imm. gran % 2.0 % 0.0-3. 0 Not Available [facility] [address] [place] [address], 38016, 02/23/2024 10:24:41 02/23/20 24 02/23/2024 CBC w/ auto diff NRBC % 0.0 % 0.0-0. 2 Not Available [facility] [address] [place] [address], 72532, 02/23/2024 10:24:41 02/23/20 24 02/23/2024 BMP, blood basic met panel; istat Not Available [facility] [address] [place] [address], 40420, 02/23/2024 10:24:44 02/23/20 24 02/23/2024 BMP, blood sodium 140 mmol/ L 136-14 6 Not Available [facility] [address] [place] [address], 21722, 02/23/2024 10:24:44 02/23/20 24 02/23/2024 BMP, blood potassium 3.8 mmol/ L 3.5-5. 1 Not Available [facility] [address] [place] [address], 15679, 02/23/2024 10:24:44 02/23/20 24 02/23/2024 BMP, blood chloride 103 mmol/ L 98-110 Not Available [facility] [address] [place] [address], 15079, 02/23/2024 10:24:44 02/23/20 24 02/23/2024 BMP, blood ion. calcium 4.9 mg/dL 4.5-5. 3 Not Available [facility] [address] [place] [address], 28096, 02/23/2024 10:24:44 02/23/20 24 02/23/2024 BMP, blood CO2 23 mmol/ L 20-32 Not Available [facility] [address] [place] [address], 77016, 02/23/2024 10:24:44 02/23/20 24 02/23/2024 BMP, blood glucose 158 mg/dL 70-100 high Not Available [facility] [address] [place] [address], 33142, 02/23/2024 10:24:44 02/23/20 24 02/23/2024 BMP, blood BUN 16 mg/dL 7-21 Not Available [facility] [address] [place] [address], 18050, 02/23/2024 10:24:44 02/23/20 24 02/23/2024 BMP, blood creatinine 0.7 mg/dL 0.7-1. 3 Not Available [facility] [address] [place] [address], 55462, 02/23/2024 10:24:44 02/23/20 24 02/23/2024 BMP, blood eGFR;non-afr ican honduran 87 Not Available [facility] [address] [place] [address], 18536, 02/23/2024 10:24:44 02/23/20 24 02/23/2024 BMP, blood eGFR; 105 (BIOMECHANICAL ENGINEER NEVA KIDNE Y DISEA SE HAS A GFR LESS THAN 60 ML/MO N/1.7 3 MM FOR A PERIO D OF THREE MONTH S OR MORE. ) Not Available [facility] [address] [place] [address], 37887, 02/23/2024 10:24:44 02/23/20 24 02/23/2024 hepat ic funct ion panel , serum liver function panel Not Available [facility] [address] [place] [address], 92730, 02/23/2024 12:57:57 02/23/20 24 02/23/2024 hepat ic funct ion panel , serum albumin 4.2 g/dL 3.5-5. 3 Not Available [facility] [address] [place] [address], 92436, 02/23/2024 12:57:57 02/23/20 24 02/23/2024 hepat ic funct ion panel , serum direct bilirubin 0.1 mg/dL 0.1-0. 5 Not Available [facility] [address] [place] [address], 84069, 02/23/2024 12:57:57 02/23/20 24 02/23/2024 hepat ic funct ion panel , serum indirect bilirubin 0.2 mg/dL 0.1-0. 6 Not Available [facility] [address] [place] [address], 87358, 02/23/2024 12:57:57 02/23/20 24 02/23/2024 hepat ic funct ion panel , serum total bilirubin 0.3 mg/dL 0.2-1. 0 Not Available [facility] [address] [place] [address], 97976, 02/23/2024 12:57:57 02/23/20 24 02/23/2024 hepat ic funct ion panel , serum ALP 66 U/L 44 - 127 Not Available [facility] [address] [place] [address], 54446, 02/23/2024 12:57:57 02/23/20 24 02/23/2024 hepat ic funct ion panel , serum AST (SGOT) 16 U/L 10-40 Not Available [facility] [address] [place] [address], 52708, 02/23/2024 12:57:57 02/23/20 24 02/23/2024 hepat ic funct ion panel , serum ALT (SGPT) 23 U/L 8-35 Not Available [facility] [address] [place] [address], 91497, 02/23/2024 12:57:57 02/23/20 24 02/23/2024 hepat ic funct ion panel , serum total protein 6.1 g/dL 6.4-8. 3 low Not Available [facility] [address] [place] [address], 57848, 02/23/2024 12:57:57 12/14/19 25 08/19/2021 imagi ng/di agnos tic resul t No observ ation record ed. [email or web address] Not Available 04:47:49 12/14/19 25 06/27/2021 imagi ng/di agnos tic resul t No observ ation record ed. [email or web address] Not Available 04:48:13 Result Notes None recorded. Problems Name Problem SNOMED Code Status Onset Date Resolution Date Notes Provider Name and Address Organization Details Recorded Time Candidiasi s of finger web 711210911 Active 2024 Rosi Washko null, [facility] 5 09:18:22 Arthritis 3327707 Active 2023 Christine torrez null, [facility] 4 10:14:32 Peripheral sensory neuropathy 116712027 Active 2023 Christine torrez null, [facility] 4 10:15:59 Hypokalemi a 61965502 Active 2023 Christine torrez [facility] 4 10:31:38 Hyperlipid emia 13913048 Active 2023 Christine torrez [facility] 4 10:16:33 Atrial fibrillati on 81456269 Active 2023 Christine torrez [facility] 4 10:17:05 Type 2 diabetes mellitus 45736678 Active 2023 with hyperglyce helder Christine torrez [facility] 4 10:17:27 Essential tremor 598765868 Active 2023 bilateral hands Christine torrez [facility] 4 10:31:59 Benign essential hypertensi on 9572103 Active 2023 Christine torrez [facility] 4 10:17:45 Coronary arterioscl erosis 73825502 Active 2023 Christine torrez [facility] 4 10:18:25 Follicular lymphoma 885206609 Active 2023 Debbie Puente [facility] 4 17:50:03 Pain in limb 17644956 Active 2023 Myrna Mcbride [facility] 14:35:17 Problem Notes None recorded. Procedures Surgical History Date Name Laterality Status Provider Name and Address Organization Details Recorded Time 01/07/20 24 SC Infusaport Nurse Kenisha active Katrin Renetta [facility] 01/07/2024 14:32:41 Colonoscopy with biopsy completed Not Available Health Note 12/23/2023 11:54:36 Removal of gallbladder completed Not Available Health Note 12/23/2023 11:54:36 Imaging Results None recorded. Procedure Notes None recorded. Medical Equipment None Reported. Allergies Allergen ID Allergen Name Allergen Category Reaction Reaction Severity Criticality Documentation Date Start Date Code Code System Note Provider Name and Address Organization Details Recorded Time 942166 adhesive tape environme nt,medica tion rash Not available Not available 09/14/20232007 64988 UNK React ion: Rash; Itchi ng; Comme nt: Adhes valentino Tape ; Not Available [facility] 4 21:27:44 Medications Name Sig Start Date Stop Date Status Note LastModified by Organization Details LastModified Time angel ultra thin lancets 30g USE TO TEST TWICE DAILY active Not Available Not Available No t Available lancet ultra thin 30g mis active Not Available Not Available Not Available celecoxib 200 mg capsule TAKE 1 [...] % 94 % 16 /min 97.5 [degF] 683452. 51 g 150 mm[Hg] 72 mm[Hg] Katrin Jackson [facility] 4 14:30:35 Date Recorded Body weight Heart rate Systolic blood pressure Diastolic blood pressure Provider Name and Address Organization Details Last Updated DateTime 02/17/2024 91899.14 g 76 /min 122 mm[Hg] 62 mm[Hg] Rosalina borges [facility] 02/17/2024 12:13:48 Date Recorded Oxygen saturation Oxygen saturation in Arterial blood by Pulse oximetry Heart rate Respiratory rate Body temperature Body weight Systolic blood pressure Diastolic blood pressure Provider Name and Address Organization Details Last Updated DateTime 4 95 % 95 % 70 /min 18 /min 97.7 [degF] 23837.5 4 g 124 mm[Hg] 70 mm[Hg] Maggie Regan [facility] 10:33:08 Social History Question Answer Notes LastModified by Organizat ion Details LastModified Time Do You Have An Advance Directive? No [email or web address] Information not available 02/21/2024 What Is Your Level Of Caffeine Consumption? Moderate [email or web address] Information not available 02/21/2024 How Many [...] Do You Have A Medical Power Of Php Mysql Developer? No [email or web address] Information not available 02/21/2024 What Was The Date Of Your Most Recent Tobacco Screening? 02/23/2024 [email or web address] Information not available 02/21/2024 What Is Your Relationship Status? [email or web address] Information not available 02/21/2024 Sex: Unknown Functional Status Question Answer Note LastModified by Organizat ion Details LastModified Time How many times per week do you consume alcohol? Less than 1 time per week [email or web address] Information not available 02/21/2024 Do you use any illicit or recreational drugs? No [email or web address] Information not available 02/21/2024 What is your level of alcohol consumption? Occasional [email or web address] Information not available 02/21/2024 Are you currently employed? 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 Moderate [email or web address] [...] 11:54:35 Sister Family history of malignant neoplasm [email or web address] Not available 2023 11:54:35 Sister Diabetes mellitus [email or web address] Not available 2023 11:54:35 Brother Diabetes mellitus [email or web address] Not available 2023 11:54:35 Brother Hypertensive disorder [facility]-[email or web address] Not available 2023 11:54:35 Father Arthritis [email or web address] Not available 02/21/2024 10:29:38 Unspecified Relation Hypercholest erolemia [email or web address] Not available 2023 10:29:38 Medical History Condition Response Attention-deficit Hyperactivity Disorder N High Blood Pressure Y Thyroid Problems N COPD N Depression N Anemia N Diabetes Y Anxiety Disorder N Bleeding Disorder N Arthritis Y Hyperlipidemia N Cancer Y Stroke N Asthma N Seizures N Heart Disease N Fibromyalgia N Osteoporosis Y Kidney Disease N Gynecological HistoryNo gynecological history recorded. Obstetrics History GPAL:G 0 P 0 0 0 0 Immunizations Vaccine Type Date Status Note Provider Nam e and Address Organization Details Recorded Time Influenza, high-dose, quadrivalent, PF 2 completed [facility] 12:13:56 Influenza, high-dose, quadrivalent, PF 3 completed [facility] 12:13:56 Influenza, high-dose, quadrivalent, PF 2 completed [facility] 12:13:56 Influenza, adjuvanted, quadrivalent, PF 0 completed [facility] 12:13:56 COVID-19, mRNA, LNP-S, PF, 30 mcg/0.3 mL dose 1 completed Rosalina Weinsteinon-Lucass en null, [facility] [facility] 02/17/2024 12:13:56 COVID-19, mRNA, LNP-S, PF, 30 mcg/0.3 mL dose 1 completed Rosalina Zee-Lucass en null, [facility] 02/17/2024 12:13:56 COVID-19, mRNA, LNP-S, PF, 30 mcg/0.3 mL dose 1 completed [place] [facility] 12:13:56 COVID-19, mRNA, LNP-S, bivalent, PF, 30 mcg/0.3 mL dose 2 completed [place] [facility]/17[facility] 12:13:56 RSV, bivalent, protein subunit RSVpreF, diluent reconstituted, 0.5 mL, PF 3 completed [place] [facility] 02/17/[facility]24 12:13:56 COVID-19, mRNA, LNP-S, PF, dhaval-sucrose, 30 mcg/0.3 mL 3 completed [place] [facility] 02/17/[facility]24 12:13:56 Tdap 6 completed [place] [facility] 02/17/2024 12:13:56 Influenza, high-dose, trivalent, PF 9 completed [facility] 02/17/[facility]24 12:13:56 Influenza, high-dose, trivalent, PF 7 completed [facility] 02/17/[facility]24 12:13:56 Influenza, high-dose, trivalent, PF 8 completed [facility] 02/17/[facility]24 12:13:56 Influenza, high-dose, trivalent, PF 6 completed [facility] 02/17/2024 12:13:56 Influenza, split virus, trivalent, preservative 3 completed Rosalina Gooden en [facility], [facility] 02/17/2024 12:13:56 Influenza, split virus, trivalent, preservative 2 completed Rosalina Gooden en null, [facility] 02/17/2024 12:13:56 Past Encounters Encounter ID Performer Location Encounter Start Date Encounter Closed Date Diagnosis/Indication Diagnosis SNOMED-CT Code Diagnosis ICD10 Code Diagnosis Note [id number] Mere Asif, GLASS CUTTER, DRIVER SALESMAN [address] [facility]olog [facility] [place] [address] [place] [address] 12/30/2023 10:48:22 12/30/2023 13:52:08 Follicular lymphoma 643678961 C82.90 [id number] Piper Driver MD [address] [place] Medicine [place]) [address] [place] [address] 01/06/2024 15:54:27 01/06/2024 18:04:01 Atrial fibrillation 09343987 I48.91 Benign ess ential hypertension 1752809 I10 Hyperlipidemia 69258516 E78.5 Peripheral sensory neuropathy 087311513 G62.9 Type 2 brianna betes mellitus 91242347 E11.9 Follicular lymphoma 3081 25916 C82.90 [id number] Anna Arvizu MD [address] ([place]) [address] [place] [address],[address] [place] [address] 01/07/2024 10:57:17 01/23/2024 22:47:52 [id number] Shreyas Samaniego er, GLASS CUTTER, DNP, DRIVER SALESMAN [facility] ([place]) [address] [place] [address] 02/17/2024 12:07:39 02/17/2024 17:59:49 Type 2 diabetes mellitus 64505846 E11.9 73-year-ol d female with history of [...] sent for test trips to her pharmacy.Haleigh swenson is in the process of moving to the [facility] to an independen /assisted living facility. She plans on getting a [...] if blood sugars become more uncontroll ed. [id number] Anna Arvizu MD [address] Oncology/ Hematolog y ([place]) [address] [place] [address],[address] [place] [address] 02/23/2024 10:01:12 02/23/2024 13:39:02 Follicular lymphoma [id number] C82.90 Health Concerns Section Related Observation LastModified by Organization Detai ls LastModified Time None Recorded Concern Status LastModified by Organization Details LastModified Time None Recorded Advance Directives Directive N: Payers Insurance Date Sequence Insurance Name Policy Number Policy Cedeno Covered Member ID Cedeno Member ID Guarantor Name 05/15/2024 1 [employer] (MEDICARE REPLACEMENT/ ADVANTAGE - PPO) [id number] Veronica Merlos [id number] Veronica Brennan Gaurang Notes Date Note Type Note Provider Name and Address Organization Details Recorded Time 02/17/2024 text/html Ms. Merlos is a 73-year-old female who presents as a new patient for management of type 2 diabetes. Her other medical history includes non-Hodgkin's lymphoma, A-fib status post cardioversion currently in sinus rhythm, hypertension, hyperlipidemia, neuropathy. Patient's in November from cancer. She is planning on moving to the [facility] at an assisted living facility. The patient [...] furosemide Hyperlipidemia. Currently takes pravastatin Shreyas James, GLASS CUTTER, DNP, DRIVER SALESMAN [address] [place] [address], [phone], [facility] 02/17/2024 13:55:14 02/23/2024 text/html Diagnosis 1. 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 She does not have children. Health maintenance The patient had Pap smear 4 years ago and colonoscopy 5 years ago. Anna Arvizu MD [address] [place] [address], [phone], [facility] 02/23/2024 21:42:14 OBGyn Episode No OBEpisode recorded.
[2025-02-01 12:36] LABS: Vitamin D 25 Hydroxy 39.7 ng/mL
--- OUTSIDE RECORDS SUMMARY | 2025-02-01 12:51 | XMS_ITS | Encounter Summary ---
Author Organization [facility] Address [address] [place] [address] Care Team Providers Care Educational Specialist Name Role Phone Isidro Galeano MD Primary Care Provider Unavailab le Encounter Details Date Type Department Care Team (Late st Contact Info) Description 09/27/2020 [employer] Message Enc [facility] Medical Group Multispecialty Care [address] [address] Iv[place], [facility] Provider RE:lab results. Social History Tobacco Use [...] COVID-19? No / Unsure 09/25/2020 10:29 AM TRANSPORTATION DESIGN ENGINEER documented as of this encounter Progress Notes * Ishan Pickett, JONATHAN - 10/03/2020 8:02 AM CST . SPORTATION DESIGN ENGINEER documented in this encounter Plan of Treatment Not on file documented as of this encounter Visit Diagnoses Not on filedocumented in this encounter Care Teams Educational Specialist Relationship Specialty Start Date End Date Isidro Galeano MD PCP - General INTERNAL MEDICINE 04/06/18 documented as of this encounter
--- OUTSIDE RECORDS SUMMARY | 2025-02-01 12:51 | XMS_ITS | Clinical Summary ---
Author Organization [facility] Address [address] [place] [address] Care Team Providers Care Electronic Operator Name Role Phone Ilan Gibbs MD Primary Care Provider [phone] [phone] Allergies No known active allergies Medications celecoxib [...] Comments Blood Pressure 119/77 10/19/2024 11:48 AM REAMER HAND Pulse 93 10/19/2024 11:48 AM REAMER HAND Temperature 36.4 C (97.5 F) 10/19/2024 11:48 AM REAMER HAND Respiratory Rate 15 10/19/2024 11:48 AM REAMER HAND Oxygen Saturation 93% 10/19/2024 11:48 AM REAMER HAND Inhaled Oxygen Concentration - - Weight 98.2 kg (216 lb 6.4 oz) 10/19/2024 11:48 AM REAMER HAND Height 165.1 cm (5' 5) 04/04/2024 10:14 AM CDT Body Mass Index 36.01 04/04/2024 10:14 AM CDT Plan of Treatment Upcoming Encounters Date Type Department Care Team (Late st Contact Info) Description 05/02/2025 11:00 AM CDT [facility] [place] [address] [place] [address] Christian Moore MD [address] [facility] [address] [place] [address] Health Maintenance Due Date Last [...] 12/29/2027 Insurance [employer] PPO MCR Care Teams Electronic Operator Relationship Specialty Start Date End Date Ilan Gibbs MD [address] [place] [id number] PCP - General Family Practice 04/04/24
--- OUTSIDE RECORDS SUMMARY | 2025-02-01 12:51 | XMS_ITS | Clinical Summary ---
Author Organization [facility] [address] Address [address] [place] [address] Care Team Providers Care Automat Car Attendant Name Role Phone Ilan Gibbs MD Primary Care Provider [phone] [phone] Allergies Active Allergy Reactions Criticality Noted Date [...] on file Legal Sex Female 1:02 PM COMPENSATION ADMINISTRATOR Gender Identity Not on file Sexual Orientation Not on file Obstetrics History Last Filed Vital Signs Vital Sign Reading Time Taken Comments Blood Pressure 110/66 08/15/2024 8:33 AM COMPENSATION ADMINISTRATOR Pulse - - Temperature - - Respiratory Rate - - Oxygen Saturation 96% 08/15/2024 8:33 AM COMPENSATION ADMINISTRATOR Inhaled Oxygen Concentration - - Weight 98.8 kg (217 lb 14.4 oz) 08/15/2024 8:33 AM COMPENSATION ADMINISTRATOR Height 167.6 cm (5' 6) 08/15/2024 8:33 AM COMPENSATION ADMINISTRATOR Body Mass Index 35.17 08/15/2024 8:33 AM COMPENSATION ADMINISTRATOR Plan of Treatment Health Maintenance Due Date [...] 05/19/2026 05/19/2016 Insurance [employer] MEDICARE Care Teams Automat Car Attendant Relationship Specialty Start Date End Date Ilan Gibbs MD [address] [place] [address] PCP - General Family Practice 08/15/24
--- OUTSIDE RECORDS SUMMARY | 2025-02-01 12:51 | XMS_ITS | Referral Summary ---
Author Organization [facility] [address] Address [address] [place] [address] Care Team Providers Care Medicare Insurance Specialist Name Role Phone Ilan Gibbs MD Primary Care Provider [phone] [phone] Allergies Active Allergy Reactions Criticality Noted Date [...] on file Legal Sex Female 1:02 PM ONLINE EDUCATION MANAGER Gender Identity Not on file Sexual Orientation Not on file Last Filed Vital Signs Vital Sign Reading Time Taken Comments Blood Pressure 110/66 08/15/2024 8:33 AM ONLINE EDUCATION MANAGER Pulse - - Temperature - - Respiratory Rate - - Oxygen Saturation 96% 08/15/2024 8:33 AM ONLINE EDUCATION MANAGER Inhaled Oxygen Concentration - - Weight 98.8 kg (217 lb 14.4 oz) 08/15/2024 8:33 AM ONLINE EDUCATION MANAGER Height 167.6 cm (5' 6) 08/15/2024 8:33 AM ONLINE EDUCATION MANAGER Body Mass Index 35.17 08/15/2024 8:33 AM ONLINE EDUCATION MANAGER Plan of Treatment Not on file Insurance [employer] MEDICARE Care Teams Medicare Insurance Specialist Relationship Specialty Start Date End Date Ilan Gibbs MD [address] [place] [address] PCP - General Family Practice 08/15/24
--- OUTSIDE RECORDS SUMMARY | 2025-02-01 12:51 | XMS_ITS | Encounter Summary ---
Author Organization [facility] Address [address] [place] [address] Care Team Providers Care Underground Heavy Equipment Operator Name Role Phone Isidro Galeano MD Primary Care Provider Unavailab Isidro Evans MD Unavailable Unavailable Encounter Details Date Type Department Care Team (Latest Contact Info) Description 05/12/2018 Abstract [facility] Medical Group Angel Ayala MD Social History [...] on filedocumented in this encounter Care Teams Underground Heavy Equipment Operator Relationship Specialty Start Date End Date Isidro Galeano MD PCP - General INTERNAL MEDICINE 04/06/18 Isidro Galeano MD PCP - Med Group - [facility] Attributed Provider 10/15/18 08/17/20 documented as of this encounter
--- OUTSIDE RECORDS SUMMARY | 2025-02-01 12:51 | XMS_ITS | Clinical Summary ---
Author Organization [facility] Address [address] [place] [address] Care Team Providers Care Adjunct Business Instructor Name Role Phone Isidro Galeano MD Primary [...] hyperglycemia, without long-term current use of insulin ([facility]) 04/02/2021 Personal history of nicotine dependence [...] 165.1 cm (5' 5) 06/26/2021 1:13 PM BOTTOM HOOP DRIVER Body Mass Index 42.27 06/26/2021 1:13 PM BOTTOM HOOP DRIVER Plan of Treatment Health Maintenance Due Date [...] Comments LIPID PANEL Routine 10/08/2021 12:05 PM BOTTOM HOOP DRIVER Hyperlipidemia, unspecified hyperlipidemia type HEMOGLOBIN, GLYCOSYLATED Routine 10/08/2021 12:05 PM BOTTOM HOOP DRIVER Type 2 diabetes mellitus with hyperglycemia, without long-term current use of insulin DIABETIC RETINOPATHY EXAM (NEGATIVE)(SCAN ORDER) Routine 06/01/2021 12:00 AM CDT BONE DENSITY GENERIC (SCAN ORDER) 05/24/2021 COLONOSCOPY Routine 12/28/2017 12:00 AM CDT from Last 3 Months or Most Recently Relevant to Health Maintenance Results * (ABNORMAL) HEMOGLOBIN, GLYCOSYLATED (10/08/2021 12:05 PM BOTTOM HOOP DRIVER) HGB A1C 6.4(H) 3.80 - 5.60 % 10/08/2021 6:57 PM BOTTOM HOOP DRIVER -MICHELLE GRANADOS ESTIMATED AVG GLUCOSE 137(H) 74 - 106 MG/DL 10/08/2021 6:57 PM BOTTOM HOOP DRIVER [facility] MICHELLE SOUZA 10/08/2021 12:0 5 PM BOTTOM HOOP DRIVER us Isidro Galeano MD LABORATORY Final Result -[facility] [address] [facility] [place] [address], * (ABNORMAL) LIPID PANEL (10/08/2021 12:05 PM BOTTOM HOOP DRIVER) CHOLESTEROL 173 <200 MG/DL 10/08/2021 5:47 PM BOTTOM HOOP DRIVER [facility] TRIGLYCERIDES 125 <150 MG/DL 10/08/2021 5:47 PM BOTTOM HOOP DRIVER [facility] HDL 43 >40 MG/DL 10/08/2021 5:47 PM BOTTOM HOOP DRIVER [facility] LDL-C 105(H) <100 MG/DL 10/08/2021 5:47 PM BOTTOM HOOP DRIVER [facility] VLDL CALCULATION 25 5 - 28 MG/DL 10/08/2021 5:47 PM BOTTOM HOOP DRIVER [facility] CHOL/HDL RATIO 4.0 0.0 - 4.0 10/08/2021 5:47 PM BOTTOM HOOP DRIVER [facility] LDL/HDL 2.4(H) 0.41 - 2.13 10/08/2021 5:47 PM BOTTOM HOOP DRIVER [facility] NON HDL CHOLESTEROL 130 <140 MG/DL 10/08/2021 5:47 PM BOTTOM HOOP DRIVER [facility] 10/08/2021 12:0 5 PM BOTTOM HOOP DRIVER Isidro Galeano MD LABORATORY Final Result [facility] [address] [place] [address], * DIABETIC RETINOPATHY EXAM (NEGATIVE)(SCAN) (06/01/2021 12:00 AM CDT) 06/01/2021 us Documents Scanned SCANNING Final Result [facility] * BONE DENSITY GENERIC (05/24/2021) Anatomical [...] Relevant to Health Maintenance Insurance [facility] MEDICARE Care Teams Adjunct Business Instructor Relationship Specialty Start Date End Date Isidro Galeano MD PCP - General INTERNAL MEDICINE 04/06/18
== END 2025-02-01 11:04 | disposition home or self-care (01) ==
PROVIDERS: PCP Family Medicine; Visit Provider Family Medicine
DX: E11.9 Type 2 diabetes mellitus without complications (principal); C85.90 Non-Hodgkin lymphoma, unspecified, unspecified site; Z00.00 Encounter for general adult medical examination without abnormal findings; Z79.899 Other long term (current) drug therapy; I48.19 Other persistent atrial fibrillation
CPT/HCPCS: 36415; 80048; 80162; 82306; 82607; 83036

== ENCOUNTER 2025-02-14 16:23 | Outpatient (CLI) | payer MEDICARE, SELFPAY ==
--- NOTE | ~2025-02-14 | MM_ITS ---
EXAMINATION: MM screening nima BI w stormy HISTORY: Screening mammogram, family history of breast cancer in her sister. TECHNIQUE: Craniocaudal and mediolateral oblique 3-D tomosynthesis images were obtained and synthetic 2-D images were generated. CAD analysis was submitted and interpreted. COMPARISON: No prior mammogram is available for comparison at this institution. BREAST PARENCHYMAL COMPOSITION:Not Dense. There are scattered areas of fibroglandular density. FINDINGS: There is an asymmetry the lower, inner left breast. No distinct parenchymal abnormality of the right breast. No suspicious microcalcifications. IMPRESSION: Asymmetry of the lower, inner left breast. Spot compression views, and possibly ultrasound, recommend ed for further evaluation. BI-RADS Category 0: Incomplete: Needs additional imaging evaluation. Reviewed, dictated and finalized at [facility]. IMPRESSION: Asymmetry of the lower, inner left breast. Spot compression views, and possibly ultrasound, recommended for further evaluation. BI-RADS Category 0: Incomplete: Needs additional imaging evaluation.
--- OUTSIDE RECORDS SUMMARY | 2025-02-14 16:26 | XMS_ITS | Referral Summary ---
Author Organization [facility] [address] [facility] [address] Address [address] [place] [address] Care Team Providers Care Timber Management Professor Name Role Phone Ilan Gibbs MD Primary Care Provider [phone] [phone] Encounters Date Type Department Care Team Description 02/13/2025 10:30 AM CDT Office Visit [facility] Medical Group Cardiology [address] [facility] [address] [place] [address] Florentin Sanderson MD PAF (paroxysmal atrial fibrillation) (HCC) (Primary Dx); Essential hypertension; Mixed hyperlipidemia; Follicular non-Hodgkin lymphoma (HCC) from Last 3 Months Allergies Active Allergy Reactions Criticality Noted Date Comments Adhesive Rash Medium 08/15/2024 Medications celecoxib (CeleBREX) 200 mg capsule Take 1 capsule (200 mg total) by mouth daily 07/05/20 24 Active diltiazem (TIAZAC) 360 mg 24 hr capsule TAKE 1 CAPSULE BY MOUTH DAILY IN THE MORNING 07/03/20 24 Active apixaban (ELIQUIS) 5 mg tablet Take 1 tablet (5 mg total) by mouth 2 (two) times a day Active gabapentin (NEURONTIN) 300 mg capsule Take 1 capsule (300 mg total) by mouth 3 (three) times a day 07/08/20 24 Active glipiZIDE (GLUCOTROL) 5 mg tablet TAKE 1 TABLET BY MOUTH BEFORE BREAKFAST AND 1/2 TABLET EVERY EVENING BEFORE DINNER 06/20/20 24 Active metoprolol XL (TOPROL-XL) 25 mg extended release tablet Take 1 tablet (25 mg total) by mouth daily 05/20/20 24 Active potassium chloride ER 20 mEq CR tablet Take 1 tablet (20 mEq total) by mouth daily Active pravastatin (PRAVACHOL) 40 mg tablet Take 1 tablet (40 mg total) by mouth nightly at bedtime 07/18/20 Active traMADoL (ULTRAM) 50 mg tablet TAKE 2 TABLETS BY MOUTH THREE TIMES DAILY NEEDED FOR ARTHRITIS 08/06/[address] (CYMBALTA) 60 mg capsule Take by mouth daily 05/24/20 24 Active torsemide (DEMADEX) 20 mg tablet Take 0.5 tablets (10 mg total) by mouth daily Active topiramate (TOPAMAX) 25 mg tablet Take 1 tablet (25 mg total) by mouth daily 02/08/20 25 Active Mounjaro 2.5 mg/0.5 mL pen injector injection Inject 0.5 mL (2.5 mg total) under the skin once a week 02/08/20 25 Active digoxin (LANOXIN) 125 mcg (0.125 mg) tablet Take 1 tablet (125 mcg total) by mouth daily 06/25/20 24 025 Discontinued primidone (MYSOLINE) 50 mg tablet Take 1 tablet (50 mg total) by mouth 4 (four) times a day 025 Discontinued(No longer taking - Do not display on AVS) Active Problems Problem Noted Date Diagnosed Date [...] on file Legal Sex Female 1:02 PM HULL MOLDER Gender Identity Not on file Sexual Orientation Not on file Last Filed Vital Signs Vital Sign Reading Time Taken Comments Blood Pressure 110/60 02/13/2025 10:29 AM CDT Pulse 81 02/13/2025 10:29 AM CDT Temperature - - Respiratory Rate - - Oxygen Saturation 95% 02/13/2025 10:29 AM CDT Inhaled Oxygen Concentration - - Weight 102.5 kg (226 lb) 02/13/2025 10:29 AM CDT Height 167.6 cm (5' 6) 02/13/2025 10:29 AM CDT Body Mass Index 36.48 02/13/2025 10:29 AM CDT Plan of Treatment Not on file Procedures Procedure Name Priority Date/Time Associated Diagnosis Comments POCT LIPID PANEL Routine 02/13/2025 10:2 4 AM CDT Mixed hyperlipidemia from Last 3 Months Results * (ABNORMAL) POCT lipid panel (02/13/2025 10:24 AM CDT) Cholesterol, POC 163 <200 MG/DL HDL, POC 39(A) >=40 mg/dL Triglycerides, POC 150(A) <=149 mg/dL LDL Cholesterol POC 94 <=129 mg/dL Chol/HDL Ratio, POC 2.4 NONE Non-HDL Cholesterol, POC 124 NONE mg/dL Cholesterol Total, POC 163 30 - 199 mg/dL Capillary blood 02/13/2025 1 0:24 AM CDT us Jacksoneer Kandice Sanderson MD POINT OF CARE TEST O RDERABLES Final Result from Last 3 Months Insurance T MEDICARE Care Teams Timber Management Professor Relationship Specialty Start Date End Date Ilan Gibbs MD [address] [place] [address] PCP - General Family Practice 08/15/24
--- OUTSIDE RECORDS SUMMARY | 2025-02-14 16:26 | XMS_ITS | Encounter Summary ---
Author Organization [facility] Address [address] [place] [address] Care Team Providers Care Tar Kettle Runner Name Role Phone Isidro Galeano MD Primary [...] on filedocumented in this encounter Care Teams Tar Kettle Runner Relationship Specialty Start Date End Date Isidro Galeano MD PCP - General INTERNAL MEDICINE 04/06/18 Isidro Galeano MD PCP - Med Group - [facility] Attributed Provider 10/15/18 08/17/20 documented as of this encounter
--- OUTSIDE RECORDS SUMMARY | 2025-02-14 16:26 | XMS_ITS | Clinical Summary ---
Author Organization [facility] Address [address] [place] [address] Care Team Providers Care Trade Specialist Name Role Phone Ilan Gibbs MD Primary Care Provider [phone] [phone] Allergies No known active allergies Medications celecoxib [...] Encounters Date Type Department Care Team Description 02/07/2025 External Device Data ST[facility] ABSTRACTION Provider, Abstract 01/31/2025 External Device Data [facility] ABSTRACTION Provider, Abstract 01/10/2025 External Device Data [facility] ABSTRACTION Provider, [...] Comments Blood Pressure 119/77 10/19/2024 11:48 AM BLUNGER Pulse 93 10/19/2024 11:48 AM BLUNGER Temperature 36.4 C (97.5 F) 10/19/2024 11:48 AM BLUNGER Respiratory Rate 15 10/19/2024 11:48 AM BLUNGER Oxygen Saturation 93% 10/19/2024 11:48 AM BLUNGER Inhaled Oxygen Concentration - - Weight 98.2 kg (216 lb 6.4 oz) 10/19/2024 11:48 AM BLUNGER Height 165.1 cm (5' 5) 04/04/2024 10:14 AM CDT Body Mass Index 36.01 04/04/2024 10:14 AM CDT Plan of Treatment Upcoming Encounters Date Type Department Care Team (Late st Contact Info) Description 05/02/2025 11:00 AM CDT Office Visit [facility] - [place] [address] [facility] [address] [place] [address] Christian Moore MD [address] [facility] [address] [place] [address] Health Maintenance Due Date Last [...] 06/30/2022, 10/08/2021, Additional history exists COVID-19 Vaccine ( - 2023-2 5 season) 2024 05/13/2023, 05/15/2022, 07/26/2021, Additional history exists RSV VACCINE (60+ or ) (1 - 1-dose 75+ series) 2024 DTAP/TDAP/TD VACCINES (2 - T d or Tdap) 05/19/2026 05/19/2016 OSTEOPOROSIS SCREENING 05/24/2026 05/24/2021 COLORECTAL SCREENING 12/29/2027 12/28/2017 Colorectal Cancer Screening 12/29/2027 Insurance AET[employer] PPO MCR Care Teams Trade Specialist Relationship Specialty Start Date End Date Ilan Gibbs MD [address] [place] [address] PCP - General Family Practice 04/04/24
--- OUTSIDE RECORDS SUMMARY | 2025-02-14 16:26 | XMS_ITS | Encounter Summary ---
Author Organization [facility] Address [facility] [place] [address] Care Team Providers Care Weapons Designer Name Role Phone Isidro Galeano MD Primary Care Provider Unavailab Isidro Evans MD Unavailable Unavailable Encounter Details Date Type Department Care Team (Late st Contact Info) Description 10/31/2017 Abstract [facility] [address] [place] [address] , Generic ConversionMD Social History Tobacco Use [...] on filedocumented in this encounter Care Teams Weapons Designer Relationship Specialty Start Date End Date Isidro Galeano MD PCP - General INTERNAL MEDICINE 04/06/18 Isidro Galeano MD PCP - Med Group - [facility] Attributed Provider 10/15/18 08/17/20 documented as of this encounter
--- OUTSIDE RECORDS SUMMARY | 2025-02-14 16:26 | XMS_ITS | Data Portability ---
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 The patient does not have children but [...] patient is moving in 2 days to [place], [place] and will establish with oncology there. She can pursue imaging there. The patient was told she would have 12 cycles of rituximab. Since she is moving, she can conclude now or can have additional 1 cycle in 8 weeks in [place]. 2. The patient's labs are overall stable [...] Medication Orders glipizide 5 mg tablet 2023 [place] [facility] [employer] #[id number], [address] [place], [place], [id number], 12:43:10 True Metrix Glucose Test Strip 2023 [facility] [employer] #[id number], [address] [place], [place], [id number], 12:43:08 Patient TargetsNo targets recorded. Patient InstructionsNo instructions recorded. Reason for Referral None Reported. Results Created Date Observation Date Name Description Value Unit Range Abnormal Flag Note LastModifiedBy Organization Detail LastModifiedTime 12/30/1912/30/2023 CBC w/ auto diff CBC with differential Not Available [facility] [address] [place] [address], [id number], 12/30/2023 11:08:08 12/30/1912/30/2023 CBC w/ auto diff WBC 4.5 K/uL 3.8-11 .2 Not Available [facility] [address] [place] [address], [id number], 12/30/2023 11:08:08 12/30/1912/30/2023 CBC w/ auto diff RBC 4.01 M/uL 3.92-5 .10 Not Available [facility] [address] [place] [address], 18164, 12/30/2023 11:08:08 12/30/19 24 12/30/2023 CBC w/ auto diff HGB 12.6 g/dL 11.8-1 5.3 Not Available [facility] [address] [place] [address], [id number], 12/30/2023 11:08:08 12/30/19 24 12/30/2023 CBC w/ auto diff HCT 38.8 % 36.5-4 4.8 Not Available [facility] [address] [place] [address], [id number], 12/30/2023 11:08:08 12/30/19 24 12/30/2023 CBC w/ auto diff MCV 96.8 fL 80.0-9 9.0 Not Available [facility] [address] [place] [address], [id number], 12/30/2023 11:08:08 12/30/19 24 12/30/2023 CBC w/ auto diff MCH 31.4 pg 25.5-3 3.6 Not Available [facility] [address] [place] [address], 70004, 12/30/2023 11:08:08 12/30/19 24 12/30/2023 CBC w/ auto diff MCHC 32.5 g/dL 32.0-3 6.0 Not Available [facility] [address] [place] [address], 14039, 12/30/2023 11:08:08 12/30/19 24 12/30/2023 CBC w/ auto diff RDW-SD 49.1 fL 35.1 - 46.3 high Not Available [facility] [address] [place] [address], [id number], 12/30/2023 11:08:08 12/30/19 24 12/30/2023 CBC w/ auto diff plt 189 K/uL 130-40 0 Not Available [facility] [address] [place] [address], 90109, 12/30/2023 11:08:08 12/30/19 24 12/30/2023 CBC w/ auto diff MPV 8.7 fL 9.3-12 .8 low Not Available [facility] [address] [place] [address], [id number], 12/30/2023 11:08:08 12/30/19 24 12/30/2023 CBC w/ auto diff jalen% 66.2 % 39.8-7 1.3 Not Available [facility] [address] [place] [address], 47894, 12/30/2023 11:08:08 12/30/19 24 12/30/2023 CBC w/ auto diff lym% 12.0 % 19.2-4 7.1 low Not Available [facility] [address] [place] [address], [id number], 12/30/2023 11:08:08 12/30/19 24 12/30/2023 CBC w/ auto diff mono% 17.4 % 1.7-12 .0 high Not Available [facility] [address] [place] [address], 50438, 12/30/2023 11:08:08 12/30/19 24 12/30/2023 CBC w/ auto diff eos% 2.4 % 0.0-12 .0 Not Available [facility] [address] [place] [address], 20913, 12/30/2023 11:08:08 12/30/19 24 12/30/2023 CBC w/ auto diff baso% 0.9 % 0.0-3. 0 Not Available [facility] [address] [place] [address], [id number], 12/30/2023 11:08:08 12/30/19 24 12/30/2023 CBC w/ auto diff abs jalen 3.0 K/uL 1.8-7. 5 Not Available [facility] [address] [place] [address], [id number], 12/30/2023 11:08:08 12/30/19 24 12/30/2023 CBC w/ auto diff abs lym 0.5 K/uL 1.1-3. 3 low Not Available [facility] [address] [place] [address], [id number], 12/30/2023 11:08:08 12/30/19 24 12/30/2023 CBC w/ auto diff abs mono 0.8 K/uL 0.1-1. 0 Not Available [facility] [address] [place] [address], 40794, 12/30/2023 11:08:08 12/30/19 24 12/30/2023 CBC w/ auto diff abs eos 0.1 K/uL 0.0-0. 7 Not Available [facility] [address] [place] [address], 09612, 12/30/2023 11:08:08 12/30/19 24 12/30/2023 CBC w/ auto diff abs baso 0.0 K/uL 0.0-0. 2 Not Available [facility] [address] [place] [address], 08910, 12/30/2023 11:08:08 12/30/19 24 12/30/2023 CBC w/ auto diff imm. gran % 1.1 % 0.0-3. 0 Not Available [facility] [address] [place] [address], [id number], 12/30/2023 11:08:08 12/30/19 24 12/30/2023 CBC w/ auto diff NRBC % 0.0 % 0.0-0. 2 Not Available [facility] [address] [place] [address], 31586, 12/30/2023 11:08:08 12/30/19 24 12/30/2023 BMP, blood basic met panel; istat Not Available [facility] [address] [place] [address], [id number], 12/30/2023 11:12:23 12/30/19 24 12/30/2023 BMP, blood sodium 141 mmol/ L 136-14 6 Not Available [facility] [address] [place] [address], 44843, 12/30/2023 11:12:23 12/30/19 24 12/30/2023 BMP, blood potassium 4.3 mmol/ L 3.5-5. 1 Not Available [facility] [address] [place] [address], 17482, 12/30/2023 11:12:23 12/30/19 24 12/30/2023 BMP, blood chloride 101 mmol/ L 98-110 Not Available [facility] [address] [place] [address], 73499, 12/30/2023 11:12:23 12/30/19 24 12/30/2023 BMP, blood ion. calcium 4.9 mg/dL 4.5-5. 3 Not Available [facility] [address] [place] [address], 69446, 12/30/2023 11:12:23 12/30/19 24 12/30/2023 BMP, blood CO2 28 mmol/ L 20-32 Not Available [facility] [address] [place] [address], [id number], 12/30/2023 11:12:23 12/30/19 24 12/30/2023 BMP, blood glucose 141 mg/dL 70-100 high Not Available [facility] [address] [place] [address], 22578, 12/30/2023 11:12:23 12/30/19 24 12/30/2023 BMP, blood BUN 14 mg/dL 7-21 Not Available [facility] [address] [place] [address], [id number], 12/30/2023 11:12:23 12/30/19 24 12/30/2023 BMP, blood creatinine 0.7 mg/dL 0.7-1. 3 Not Available [facility] [address] [place] [address], [id number], 12/30/2023 11:12:23 12/30/19 24 12/30/2023 BMP, blood eGFR;non-afr ican kenyan 87 Not Available [facility] [address] [place] [address], 18013, 12/30/2023 11:12:23 12/30/19 24 12/30/2023 BMP, blood eGFR; 105 (AUDIO VISUAL AIDS DIRECTOR NEVA KIDNE Y DISEA SE HAS A GFR LESS THAN 60 ML/OR N/1.7 3 MM FOR A PERIO D OF THREE MONTH S OR MORE. ) Not Available [facility] [address] [place] [address], [id number], 12/30/2023 11:12:23 12/30/19 24 12/30/2023 hepat ic funct ion panel , serum liver function panel Not Available [facility] - [facility] [address] [place] [address], 68994, 12/30/2023 12:50:39 12/30/19 24 12/30/2023 hepat ic funct ion panel , serum albumin 4.3 g/dL 3.5-5. 3 Not Available [facility] [address] [place] [address], 44032, 12/30/2023 12:50:39 12/30/19 24 12/30/2023 hepat ic funct ion panel , serum direct bilirubin 0.1 mg/dL 0.1-0. 5 Not Available [facility] [address] [place] [address], 39692, 12/30/2023 12:50:39 12/30/19 24 12/30/2023 hepat ic funct ion panel , serum indirect bilirubin 0.2 mg/dL 0.1-0. 6 Not Available [facility] [address] [place] [address], 21099, 12/30/2023 12:50:39 12/30/19 24 12/30/2023 hepat ic funct ion panel , serum total bilirubin 0.3 mg/dL 0.2-1. 0 Not Available [facility] [address] [place] [address], 44484, 12/30/2023 12:50:39 12/30/19 24 12/30/2023 hepat ic funct ion panel , serum ALP 78 U/L 44 - 127 Not Available [facility] [address] [place] [address], 42450, 12/30/2023 12:50:39 12/30/19 24 12/30/2023 hepat ic funct ion panel , serum AST (SGOT) 21 U/L 10-40 Not Available [facility] [address] [place] [address], [id number], 12/30/2023 12:50:39 12/30/19 24 12/30/2023 hepat ic funct ion panel , serum ALT (SGPT) 31 U/L 8-35 Not Available [facility] [address] [place] [address], 54248, 12/30/2023 12:50:39 12/30/19 24 12/30/2023 hepat ic funct ion panel , serum total protein 6.4 g/dL 6.4-8. 3 Not Available [facility] [address] [place] [address], 85202, 12/30/2023 12:50:39 02/17/20 24 02/17/2024 hemog lobin A1C, finge rstic k fingerstick A1C endo Not Available [facility] [address] [place] [address], 42916, 02/17/2024 12:13:06 02/17/20 24 02/17/2024 hemog lobin A1C, finge rstic k hemoglobin A1C, finger 7.1 %_A1C 4.3 - 5.6 high Not Available [facility] [address] [place] [address], 44359, 02/17/2024 12:13:06 02/17/20 24 02/17/2024 hemog lobin A1C, finge rstic k fingerstick estimated ave 157 Not Available [facility] [address] [place] [address], 26404, 02/17/2024 12:13:06 02/23/20 24 02/23/2024 CBC w/ auto diff CBC with differential Not Available [facility] [address] [place] [address], 54470, 02/23/2024 10:24:41 02/23/20 24 02/23/2024 CBC w/ auto diff WBC 3.4 K/uL 3.8-11 .2 low Not Available [facility] [address] [place] [address], 59301, 02/23/2024 10:24:41 02/23/20 24 02/23/2024 CBC w/ auto diff RBC 3.87 M/uL 3.92-5 .10 low Not Available [facility] [address] [place] [address], 73431, 02/23/2024 10:24:41 02/23/20 24 02/23/2024 CBC w/ auto diff HGB 11.9 g/dL 11.8-1 5.3 Not Available [facility] [address] [place] [address], 73841, 02/23/2024 10:24:41 02/23/20 24 02/23/2024 CBC w/ auto diff HCT 36.9 % 36.5-4 4.8 Not Available [facility] [address] [place] [address], 23926, 02/23/2024 10:24:41 02/23/20 24 02/23/2024 CBC w/ auto diff MCV 95.3 fL 80.0-9 9.0 Not Available [facility] [address] [place] [address], 65572, 02/23/2024 10:24:41 02/23/20 24 02/23/2024 CBC w/ auto diff MCH 30.7 pg 25.5-3 3.6 Not Available [facility] [address] [place] [address], 66415, 02/23/2024 10:24:41 02/23/20 24 02/23/2024 CBC w/ auto diff MCHC 32.2 g/dL 32.0-3 6.0 Not Available [facility] [address] [place] [address], 64065, 02/23/2024 10:24:41 02/23/20 24 02/23/2024 CBC w/ auto diff RDW-SD 46.1 fL 35.1 - 46.3 Not Available [facility] [address] [place] [address], 40048, 02/23/2024 10:24:41 02/23/20 24 02/23/2024 CBC w/ auto diff plt 183 K/uL 130-40 0 Not Available [facility] [address] [place] [address], 95273, 02/23/2024 10:24:41 02/23/20 24 02/23/2024 CBC w/ auto diff MPV 9.2 fL 9.3-12 .8 low Not Available [facility] [address] [place] [address], 02677, 02/23/2024 10:24:41 02/23/20 24 02/23/2024 CBC w/ auto diff jalen% 63.1 % 39.8-7 1.3 Not Available [facility] [address] [place] [address], 83516, 02/23/2024 10:24:41 02/23/20 24 02/23/2024 CBC w/ auto diff lym% 11.3 % 19.2-4 7.1 low Not Available [facility] [address] [place] [address], 51750, 02/23/2024 10:24:41 02/23/20 24 02/23/2024 CBC w/ auto diff mono% 17.2 % 1.7-12 .0 high Not Available [facility] [address] [place] [address], 06532, 02/23/2024 10:24:41 02/23/20 24 02/23/2024 CBC w/ auto diff eos% 5.2 % 0.0-12 .0 Not Available [facility] [address] [place] [address], 93779, 02/23/2024 10:24:41 02/23/20 24 02/23/2024 CBC w/ auto diff baso% 1.2 % 0.0-3. 0 Not Available [facility] [address] [place] [address], 28872, 02/23/2024 10:24:41 02/23/20 24 02/23/2024 CBC w/ auto diff abs jalen 2.2 K/uL 1.8-7. 5 Not Available [facility] [address] [place] [address], 55684, 02/23/2024 10:24:41 02/23/20 24 02/23/2024 CBC w/ auto diff abs lym 0.4 K/uL 1.1-3. 3 low Not Available [facility] [address] [place] [address], 35495, 02/23/2024 10:24:41 02/23/20 24 02/23/2024 CBC w/ auto diff abs mono 0.6 K/uL 0.1-1. 0 Not Available [facility] [address] [place] [address], 56111, 02/23/2024 10:24:41 02/23/20 24 02/23/2024 CBC w/ auto diff abs eos 0.2 K/uL 0.0-0. 7 Not Available [facility] [address] [place] [address], 15400, 02/23/2024 10:24:41 02/23/20 24 02/23/2024 CBC w/ auto diff abs baso 0.0 K/uL 0.0-0. 2 Not Available [facility] [address] [place] [address], 85378, 02/23/2024 10:24:41 02/23/20 24 02/23/2024 CBC w/ auto diff imm. gran % 2.0 % 0.0-3. 0 Not Available [facility] [address] [place] [address], 22074, 02/23/2024 10:24:41 02/23/20 24 02/23/2024 CBC w/ auto diff NRBC % 0.0 % 0.0-0. 2 Not Available [facility] [address] [place] [address], 04192, 02/23/2024 10:24:41 02/23/20 24 02/23/2024 BMP, blood basic met panel; istat Not Available [facility] [address] [place] [address], 36705, 02/23/2024 10:24:44 02/23/20 24 02/23/2024 BMP, blood sodium 140 mmol/ L 136-14 6 Not Available [facility] [address] [place] [address], 48207, 02/23/2024 10:24:44 02/23/20 24 02/23/2024 BMP, blood potassium 3.8 mmol/ L 3.5-5. 1 Not Available [facility] [address] [place] [address], 15213, 02/23/2024 10:24:44 07/09/20 24 02/23/2024 BMP, blood chloride 103 mmol/ L 98-110 Not Available [facility] [address] [place] [address], 47703, 02/23/2024 10:24:44 02/23/20 24 02/23/2024 BMP, blood ion. calcium 4.9 mg/dL 4.5-5. 3 Not Available [facility] [address] [place] [address], 48425, 02/23/2024 10:24:44 02/23/20 24 02/23/2024 BMP, blood CO2 23 mmol/ L 20-32 Not Available [facility] [address] [place] [address], 45752, 02/23/2024 10:24:44 02/23/20 24 02/23/2024 BMP, blood glucose 158 mg/dL 70-100 high Not Available [facility] [address] [place] [address], 34092, 02/23/2024 10:24:44 02/23/20 24 02/23/2024 BMP, blood BUN 16 mg/dL 7-21 Not Available [facility] [address] [place] [address], 40755, 02/23/2024 10:24:44 02/23/20 24 02/23/2024 BMP, blood creatinine 0.7 mg/dL 0.7-1. 3 Not Available [facility] [address] [place] [address], 01592, 02/23/2024 10:24:44 02/23/20 24 02/23/2024 BMP, blood eGFR;non-afr ican kenyan 87 Not Available [facility] [address] [place] [address], 25545, 02/23/2024 10:24:44 02/23/20 24 02/23/2024 BMP, blood eGFR; 105 (AUDIO VISUAL AIDS DIRECTOR NEVA KIDNE Y DISEA SE HAS A GFR LESS THAN 60 ML/OR N/1.7 3 MM FOR A PERIO D OF THREE MONTH S OR MORE. ) Not Available [facility] [address] [place] [address], 24022, 02/23/2024 10:24:44 02/23/20 24 02/23/2024 hepat ic funct ion panel , serum liver function panel Not Available [facility] [address] [place] [address], [id number], 02/23/2024 12:57:57 02/23/20 24 02/23/2024 hepat ic funct ion panel , serum albumin 4.2 g/dL 3.5-5. 3 Not Available [facility] [address] [place] [address], 37650, 02/23/2024 12:57:57 02/23/20 24 02/23/2024 hepat ic funct ion panel , serum direct bilirubin 0.1 mg/dL 0.1-0. 5 Not Available [facility] [address] [place] [address], 70709, 02/23/2024 12:57:57 02/23/20 24 02/23/2024 hepat ic funct ion panel , serum indirect bilirubin 0.2 mg/dL 0.1-0. 6 Not Available [facility] [address] [place] [address], 79888, 02/23/2024 12:57:57 02/23/20 24 02/23/2024 hepat ic funct ion panel , serum total bilirubin 0.3 mg/dL 0.2-1. 0 Not Available [facility] [address] [place] [address], 07472, 02/23/2024 12:57:57 02/23/20 24 02/23/2024 hepat ic funct ion panel , serum ALP 66 U/L 44 - 127 Not Available [facility] [address] [place] [address], 78092, 02/23/2024 12:57:57 02/23/20 24 02/23/2024 hepat ic funct ion panel , serum AST (SGOT) 16 U/L 10-40 Not Available [facility] [address] [place] [address], 12035, 02/23/2024 12:57:57 02/23/20 24 02/23/2024 hepat ic funct ion panel , serum ALT (SGPT) 23 U/L 8-35 Not Available [facility] [address] [place] [address], 56242, 02/23/2024 12:57:57 02/23/20 24 02/23/2024 hepat ic funct ion panel , serum total protein 6.1 g/dL 6.4-8. 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 Active 2024 Rosi Washko null, [facility] 5 09:18:22 Arthritis 0612908 Active 2023 Christine torrez null, [facility] 4 10:14:32 Peripheral sensory neuropathy 615047347 Active 2023 Christine torrez null, [facility] 4 10:15:59 Hypokalemi a 85836665 Active 2023 Christine torrez [facility] 4 10:31:38 Hyperlipid emia 34205937 Active 2023 Christine torrez [facility] 4 10:16:33 Atrial fibrillati on 32028967 Active 2023 Christine torrez [facility] 4 10:17:05 Type 2 diabetes mellitus 06202643 Active 2023 with hyperglyce helder Christine torrez [facility] 4 10:17:27 Essential tremor 068596720 Active 2023 bilateral hands Christine torrez [facility] 4 10:31:59 Benign essential hypertensi on 5934051 Active 2023 Christine torrez [facility] 4 10:17:45 Coronary arterioscl erosis 99157088 Active 2023 Christinelenny torrez [facility] 4 10:18:25 Follicular lymphoma 275925261 Active 2023 Debbie Puente [facility] 4 17:50:03 Pain in limb 71304998 Active 2023 Myrna Mcbride [facility] 4 14:35:17 Problem Notes None recorded. Procedures Surgical History Date Name Laterality Status Provider Name and Address Organization Details Recorded Time 01/07/20 24 SC Infusaport Nurse Tx active Katrin Jackson [facility] 01/07/2024 14:32:41 Colonoscopy with biopsy completed Not Available Health Note 12/23/2023 11:54:36 Removal of gallbladder completed Not Available Health Note 12/23/2023 11:54:36 Imaging Results None recorded. Procedure Notes None recorded. Medical Equipment None Reported. Allergies Allergen ID Allergen Name Allergen Category Reaction Reaction Severity Criticality Documentation Date Start Date Code Code System Note Provider Name and Address Organization Details Recorded Time 583704 adhesive tape environme nt,medica tion rash Not available Not available 09/14/20232007 44105 UNK React ion: Rash; Itchi ng; Comme nt: Adhes valentino Tape ; Not Available [facility] 21:27:44 Medications Name Sig Start Date Stop [...] % 94 % 16 /min 97.5 [degF] 822949. 51 g 150 mm[Hg] 72 mm[Hg] Katrin Louisens [facility] 4 14:30:35 Date Recorded Body weight Heart rate Systolic blood pressure Diastolic blood pressure Provider Name and Address Organization Details Last Updated DateTime 02/17/2024 85608.14 g 76 /min 122 mm[Hg] 62 mm[Hg[facility] 12:13:48 Date Recorded Oxygen saturation Oxygen saturation in Arterial blood by Pulse oximetry Heart rate Respiratory rate Body temperature Body weight Systolic blood pressure Diastolic blood pressure Provider Name and Address Organization Details Last Updated DateTime 4 95 % 95 % 70 /min 18 /min 97.7 [degF] 72864.5 4 g 124 mm[Hg] 70 mm[Hg] Maggie Regan [facility] 10:33:08 Social History Question Answer Notes LastModified [...] Do You Have A Medical Power Of Chief Talent Officer? 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 [email or web address] Information not available 02/21/2024 What is [...] Not available 2023 11:54:35 Mother Diabetes mellitus [facility]-[id number] Not available 2023 11:54:35 Sister Family history of malignant neoplasm [email or web address] Not available 2023 11:54:35 Sister Diabetes mellitus [email or web address] Not available 2023 11:54:35 Brother Diabetes mellitus [facility]-[id number] Not available 2023 11:54:35 Brother Hypertensive disorder [facility]-[id number] Not available 2023 11:54:35 Father Arthritis [facility]-[id number] Not available 02/21/2024 10:29:38 Unspecified Relation Hypercholest erolemia [facility]-[id number] Not available 2023 10:29:38 Medical History Condition Response Anxiety Disorder N Diabetes Y Attention-deficit Hyperactivity Disorder N Bleeding Disorder N High Blood Pressure Y Arthritis Y Hyperlipidemia N Cancer Y Stroke N Thyroid Problems N Asthma N Depression N COPD N Anemia N Seizures N Heart Disease N Fibromyalgia [...] dose 1 completed Rosalina Zee-Lucass en null, [facility] 02/17/2024 12:13:56 COVID-19, mRNA, LNP-S, PF, 30 mcg/0.3 mL dose [facility] 12:13:56 COVID-19, mRNA, LNP-S, PF, 30 mcg/0.3 mL dose [facility] 12:13:56 COVID-19, mRNA, LNP-S, bivalent, PF, 30 mcg/0.3 mL dose 2 [facility]24 12:13:56 RSV, bivalent, protein subunit RSVpreF, diluent reconstituted, 0.5 mL, PF 3 [facility] 12:13:56 COVID-19, mRNA, LNP-S, PF, dhaval-sucrose, 30 mcg/0.3 mL 3 [facility] 12:13:56 Tdap 6 [facility] 02/17/2024 12:13:56 Influenza, high-dose, trivalent, PF 9 [facility] 02/17/2024 12:13:56 Influenza, high-dose, trivalent, PF 7 completed [place] [facility] 12:13:56 Influenza, high-dose, trivalent, PF 8 completed [place] [facility]/17[facility]24 12:13:56 Influenza, high-dose, trivalent, PF 6 [facility] 12:13:56 Influenza, split virus, trivalent, preservative 3 completed Rosalina Gooden en null, [facility] 02/17/2024 12:13:56 Influenza, split virus, trivalent, preservative 2 completed Rosalina Gooden en null, [facility] 02/17/2024 12:13:56 Past Encounters Encounter ID Performer Location Encounter Start Date Encounter Closed Date Diagnosis/Indication Diagnosis SNOMED-CT Code Diagnosis ICD10 Code Diagnosis Note [id number] Mere Asif, POLE FRAME CONSTRUCTION WORKER, LANDSCAPE GARDENER [address] [facility] ([place]) [address] [place] [address] 12/30/2023 10:48:22 12/30/2023 13:52:08 Follicular lymphoma 604777426 C82.90 [id number] Piper Driver MD [address] [place] [facility] ([place]) [address] [facility],[address] [place] [address] 01/06/2024 15:54:27 01/06/2024 18:04:01 Atrial fibrillation [id number] I48.91 Benign ess ential hypertension [id number] I10 Hyperlipidemia 36147541 E78.5 Peripheral sensory neuropathy [id number] G62.9 Type 2 brianna betes mellitus [id number] E11.9 Follicular lymphoma [id number] C82.90 [id number] Anna Arvizu MD [address] ([place]) [address] [place] [address],[address] [place] [address] 01/07/2024 10:57:17 01/23/2024 22:47:52 [id number] Shreyas Samaniego er, POLE FRAME CONSTRUCTION WORKER, DNP, LANDSCAPE GARDENER [facility]) [address] [place] [address] 02/17/2024 12:07:39 02/17/2024 17:59:49 Type 2 diabetes mellitus [id number] E11.9 73-year-ol d female with history of [...] in the process of moving to the [facility] to an independen /assisted living facility. She [...] if blood sugars become more uncontroll ed. [id number] Anna Arvizu MD [address] Oncology/ Hematolog y ([place]) [address] [place] [address],[address] [place] [phone] 02/23/2024 10:01:12 02/23/2024 13:39:02 Follicular lymphoma [id number] C82.90 Health Concerns Section Related Observation LastModified by Organization Detai ls LastModified Time None Recorded Concern Status LastModified by Organization Details LastModified Time None Recorded Advance Directives Directive N: Payers Insurance Date Sequence Insurance Name Policy Number Policy Cedeno Covered Member ID Cedeno Member ID Guarantor Name 05/15/2024 1 [employer] (MEDICARE REPLACEMENT/ ADVANTAGE - PPO) [id number] Veronica Merlos [id number] Veronica Brennan Gaurang Notes Date Note Type [...] She is planning on moving to the [facility] at an assisted living facility. The patient [...] furosemide Hyperlipidemia. Currently takes pravastatin Shreyas James, POLE FRAME CONSTRUCTION WORKER, DNP, LANDSCAPE GARDENER [address] [place] [address], [phone], [facility] 02/17/2024 13:55:14 02/23/2024 text/html Diagnosis 1. 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 She does not have children. Health maintenance The patient had Pap smear 4 years ago and colonoscopy 5 years ago. Anna Arvizu MD [address] [place] [address], [phone], [facility] 02/23/2024 21:42:14 OBGyn Episode No OBEpisode recorded.
--- OUTSIDE RECORDS SUMMARY | 2025-02-14 16:26 | XMS_ITS | Encounter Summary ---
Author Organization [facility] Healthcare Address [address] [place] [id number] Care Team Providers Care Soil And Plant Scientist Name Role Phone Ilan Gibbs MD Primary Care Provider [phone] Reason for Visit * Reason Comments Atrial Fibrillation Hypertension Hyperlipidemia 6 mo f/u Encounter Details Date Type Department Care Team (Late st Contact Info) Description 02/13/2025 10:30 AM CDT Office Visit [facility] Cardiology [address] [place] [address] Florentin Sanderson MD [address] [address] PAF (paroxysmal atrial fibrillation) (HCC) (Primary Dx); Essential hypertension; Mixed hyperlipidemia; Follicular non-Hodgkin lymphoma (HCC) Social History Tobacco Use Types Packs/Day Years Used Date Smoking Tobacco: Former Cigarettes AUDIT-C Answer Date Recorded Q1: How often do you have a drink containing alc ohol? 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 female with past history of coronary calcification, atrial fibrillation, COPD, hypertension, hyperlipidemia, fibromyalgia and left breast cancer with history of chemotherapyrituximab history follicular non- Hodgkin lymphoma with large pelvic retroperitoneal mass 2021. He used to follow up in [facility] and she is here transferring care. Reports that the discovered the AFib in 2022 during chemotherapy. Denies palpitations. She is in sinus rhythm today based on our EKG. Used to smoke cigarettes but quit February 2024. Denies chest pain, shortness of breath, dizziness or syncope. She has mild lower extremity edema. Last imaging October 2023 shows unchanged ill-defined soft tissue density adjacent to the right common iliac vein, right iliopsoas muscle and lumbosacral spine likely the appearance of the lymphoma. Hepatomegaly with diffuse fatty infiltration and coronary calcification. 02/13/2025-returns for follow-up appointment. MEDICAL HISTORY Past Medical History: Diagnosis Date Atrial fibrillation (HCC) Cancer (HCC) History of cardioversion History reviewed. No pertinent surgical history. Social History Tobacco Use Smoking status: Former Types: Cigarettes Smokeless tobacco: None Substance and Sexual Activity Drug use: None Sexual activity: None Alcohol Use: Unknown (09/02/2024) AUDIT-C Frequency of Alcohol Consumption: Monthly or less Average Number of Drinks: Not on file Frequency of Binge Drinking: Not on file Denies family history of CAD MEDICATIONS No current outpatient medications on file. No current facility-administered medications for this visit. ALLERGIES Allergies Allergen Reactions Adhesive Rash REVIEW OF SYSTEMS Review of Systems Constitutional: Positive for malaise/fatigue. Negative for chills and fever. HENT: Negative for congestion and sore throat. Eyes: Negative for blurred vision and double vision. Cardiovascular: Positive for leg swelling. Negative for chest pain, claudication, dyspnea on exertion, near-syncope, orthopnea, palpitations, paroxysmal nocturnal dyspnea and syncope. Respiratory: Negative for cough, hemoptysis, shortness of breath, snoring, sputum production and wheezing. Endocrine: Negative for cold intolerance and polyuria. Hematologic/Lymphatic: Negative for bleeding problem. Does not bruise/bleed easily. Skin: Negative for itching and rash. Musculoskeletal: Negative for back pain, joint pain and joint swelling. Gastrointestinal: Negative for abdominal pain, diarrhea, nausea and vomiting. Genitourinary: Negative for dysuria, frequency and hematuria. Neurological: Negative for focal weakness, headaches and light-headedness. Psychiatric/Behavioral: Negative for depression. The patient is not nervous/anxious. Allergic/Immunologic: Negative for environmental allergies and hives. PHYSICAL EXAM Vitals BP 110/60 (BP Location: Left arm, Patient Position: Sitting) Pulse 81 Ht 167.6 cm (5' 6) Wt 102.5 kg (226 lb) SpO2 95% BMI 36.48 kg/m?? Body mass index is 36.48 kg/m??. Physical Exam Constitutional: General: She is not in acute distress. Appearance: She is well-developed. HENT: Head: Normocephalic and atraumatic. Right Ear: External ear normal. Left Ear: External ear normal. Eyes: General: No scleral icterus. Left eye: No discharge. Conjunctiva/sclera: Conjunctivae normal. Neck: Thyroid: No thyromegaly. Cardiovascular: Rate and Rhythm: Normal rate and regular rhythm. Heart sounds: Normal heart sounds. No murmur heard. No friction rub. No gallop. Pulmonary: Effort: Pulmonary effort is normal. No respiratory distress. Breath sounds: Normal breath sounds. No wheezing or rales. Chest: Chest wall: No tenderness. Abdominal: General: There is no distension. Palpations: Abdomen is soft. Tenderness: There is no abdominal tenderness. Musculoskeletal: General: No tenderness or deformity. Cervical back: Normal range of motion and neck supple. Right lower leg: No edema. Left lower leg: No edema. Skin: General: Skin is warm. Findings: Erythema present. No rash. Neurological: Mental Status: She is alert and oriented to person, place, and time. Cranial Nerves: No cranial nerve deficit. Motor: No abnormal muscle tone. Psychiatric: Mood and Affect: Mood normal. LABS AND OTHER DIAGNOSTIC TESTS No results found for: WBC, HGB, HCT, MCV, PLT Chemistry No results found for: SODIUM, POTASSIUM, CHLORIDE, CO2, BUNSER, CREATININE, GLUCOSE No results found for: CALCIUM, ALKPHOS, AST, ALT, BILITOT EKG1-sinus rhythm septal Q-waves nonspecific T inversion leads 1 and aVL Echo ASSESSMENT Diagnoses and all orders for this visit: PAF (paroxysmal atrial fibrillation) (HCC) (Primary) Essential hypertension Mixed hyperlipidemia Follicular non-Hodgkin lymphoma (HCC) PLAN/RECOMMENDATIONS In regards to paroxysmal atrial fibrillation, she is in sinus rhythm based on our EKG today. diltiazem, metoprolol. Continue Eliquis for anticoagulation. Digoxin level checked last visit and was lessthan 0.5. I think it is reasonable to take her off digoxin at this time. She is asking whether or not she should be off Eliquis. We can discuss that next time. In regards to bilateral lower extremity edema, thought to be related to venous insufficiency plus an element of pelvic mass from the lymphoma. Echocardiogram checked September 2024 shows normal LV function. Patient takes torsemide 10 mg daily for that matter as well. Continue torsemide. In regards to hypertension controlled 110/60. Continue metoprolol, diltiazem. Regards to hyperlipidemia lipid panel done today February 13, 2025 LDL 94, HDL 39 triglycerides 150. Continue pravastatin. 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 Continue gabapentin In regards to coronary calcification, continue Eliquis. Continue statin. Denies anginal symptoms. Review of recent labs shows creatinine 0.7, hemoglobin A1c 6.4, hemoglobin 12.4, white cell count 4.4 , sodium 137, potassium 4.4 Follow up in the office in in 6 months. Florentin Sanderson MD documented in this encounter Miscellaneous Notes * Addendum Note - Jaleesa Vitale MA - 02/13/2025 10:30 AM CDTAddended by: JALEESA VITALE on: 02/13/2025 03:20 PM Modules accepted: Orders documented in this encounter Plan of Treatment Not on file documented as of this encounter Procedures Procedure Name Priority Date/Time Associated Diagnosis Comments POCT LIPID PANEL Routine 02/13/2025 10:2 4 AM CDT Mixed hyperlipidemia documented in this encounter Results * (ABNORMAL) POCT lipid panel (02/13/2025 10:24 AM CDT) Cholesterol, POC 163 <200 MG/DL HDL, POC 39(A) >=40 mg/dL Triglycerides, POC 150(A) <=149 mg/dL LDL Cholesterol POC 94 <=129 mg/dL Chol/HDL Ratio, POC 2.4 NONE Non-HDL Cholesterol, POC 124 NONE mg/dL Cholesterol Total, POC 163 30 - 199 mg/dL Capillary blood 02/13/2025 1 0:24 AM CDT us Florentin Sanderson MD POINT OF CARE TEST O RDERABLES Final Result documented in this encounter Visit Diagnoses Diagnosis PAF (paroxysmal atrial fibrillation) (HCC)- Primary Atrial fibrillation Essential hypertension Unspecified essential hypertension Mixed hyperlipidemia Follicular non-Hodgkin lymphoma (HCC) documented in this encounter Discontinued Medications Medication Sig Discontinue Reason Start Date End Da te primidone (MYSOLINE) 50 mg tablet Take 1 tablet (50 mg total) by mouth 4 (four) times a day No longer taking - Do not display on AVS 02/13/2025 digoxin (LANOXIN) 125 mcg (0.125 mg) tablet Take 1 tablet (125 mcg total) by mouth daily 06/25/2024 02/13/2025 documented as of this encounter Historical Medications * This list may reflect changes made after this encounter. Mounjaro 2.5 mg/0.5 mL pen injector injection Inject 0.5 mL (2.5 mg total) under the skin once a week 02/07/2025 topiramate (TOPAMAX) 25 mg tablet Take 1 tablet (25 mg total) by mouth daily 02/07/2025 added in this encounter Care Teams Soil And Plant Scientist Relationship Specialty Start Date End Date Ilan Gibbs MD [address] [place], [place] [id number] PCP - General Family Practice 08/15/24 documented as of this encounter
--- OUTSIDE RECORDS SUMMARY | 2025-02-14 16:26 | XMS_ITS | Clinical Summary ---
Author Organization [facility] [address] Address [address] [place] [address] Care Team Providers Care Extension Associate Name Role Phone Ilan Gibbs MD Primary Care Provider [phone] Allergies Active Allergy Reactions Criticality Noted Date [...] total) by mouth nightly at bedtime 07/18/20 24 Active traMADoL (ULTRAM) 50 mg tablet TAKE [...] Description 02/13/2025 10:30 AM CDT Office Visit [facility] Cardiology [address] [facility] [address] [place] [phone] Florentin Sanderson MD PAF (paroxysmal atrial fibrillation) [...] on file 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
--- OUTSIDE RECORDS SUMMARY | 2025-02-14 16:26 | XMS_ITS | Clinical Summary ---
Author Organization [facility] Address [address] [place] [address] Care Team Providers Care Manufacturing Engineer Paint Name Role Phone Isidro Galeano MD Primary [...] hyperglycemia, without long-term current use of insulin ([facility]) 04/02/2021 Personal history of nicotine dependence 04/02/20 [...] 165.1 cm (5' 5) 06/26/2021 1:13 PM BLADE GROOVER Body Mass Index 42.27 06/26/2021 1:13 PM BLADE GROOVER Plan of Treatment Health Maintenance Due Date [...] Comments LIPID PANEL Routine 10/08/2021 12:05 PM BLADE GROOVER Hyperlipidemia, unspecified hyperlipidemia type HEMOGLOBIN, GLYCOSYLATED Routine 10/08/2021 12:05 PM BLADE GROOVER Type 2 diabetes mellitus with hyperglycemia, without long-term current use of insulin DIABETIC RETINOPATHY EXAM (NEGATIVE)(SCAN ORDER) Routine 06/01/2021 12:00 AM CDT BONE DENSITY GENERIC (SCAN ORDER) 05/24/2021 COLONOSCOPY Routine 12/28/2017 12:00 AM CDT from Last 3 Months or Most Recently Relevant to Health Maintenance Results * (ABNORMAL) HEMOGLOBIN, GLYCOSYLATED (10/08/2021 12:05 PM BLADE GROOVER) HGB A1C 6.4(H) 3.80 - 5.60 % 10/08/2021 6:57 PM BLADE GROOVER -MICHELLE GRANADOS ESTIMATED AVG GLUCOSE 137(H) 74 - 106 MG/DL 10/08/2021 6:57 PM BLADE GROOVER [facility] MICHELLE SOUZA 10/08/2021 12:0 5 PM BLADE GROOVER us Isidro Galeano MD LABORATORY Final Result -CONST[facility] G[facility] [address] [facility] [place] [address], * (ABNORMAL) LIPID PANEL (10/08/2021 12:05 PM BLADE GROOVER) CHOLESTEROL 173 <200 MG/DL 10/08/2021 5:47 PM BLADE GROOVER [facility] TRIGLYCERIDES 125 <150 MG/DL 10/08/2021 5:47 PM BLADE GROOVER [facility] HDL 43 >40 MG/DL 10/08/2021 5:47 PM BLADE GROOVER [facility] LDL-C 105(H) <100 MG/DL 10/08/2021 5:47 PM BLADE GROOVER [facility] VLDL CALCULATION 25 5 - 28 MG/DL 10/08/2021 5:47 PM BLADE GROOVER [facility] CHOL/HDL RATIO 4.0 0.0 - 4.0 10/08/2021 5:47 PM BLADE GROOVER [facility] LDL/HDL 2.4(H) 0.41 - 2.13 10/08/2021 5:47 PM BLADE GROOVER [facility] NON HDL CHOLESTEROL 130 <140 MG/DL 10/08/2021 5:47 PM BLADE GROOVER [facility] 10/08/2021 12:0 5 PM BLADE GROOVER Isidro Galeano MD LABORATORY Final Result [facility] [address] [place] [address], * DIABETIC RETINOPATHY EXAM (NEGATIVE)(SCAN) (06/01/2021 12:00 AM CDT) 06/01/2021 us Documents Scanned SCANNING Final Result [facility] ON[facility] * BONE DENSITY GENERIC (05/24/2021) [...] Relevant to Health Maintenance Insurance MED REPLACE [facility] MEDICARE Care Teams Manufacturing Engineer Paint Relationship Specialty Start Date End Date Isidro Galeano MD PCP - General INTERNAL MEDICINE 04/06/18
--- OUTSIDE RECORDS SUMMARY | 2025-02-14 16:26 | XMS_ITS | Encounter Summary ---
Author Organization [facility] Address [address] [place] [address] Care Team Providers Care Drop Forge Hand Name Role Phone Isidro Galeano MD Primary Care Provider Unavailab le Encounter Details Date Type Department Care Team (Late st Contact Info) Description 09/27/2020 Driblet Message Enc [facility] Medical Group Multispecialty Care [address] [address] Iveth, [facility] Provider RE:lab results. Social History Tobacco [...] COVID-19? No / Unsure 09/25/2020 10:29 AM HAND SALTER documented as of this encounter Progress Notes * Ishan Pickett, JONATHAN - 10/03/2020 8:02 AM CST . SALTER documented in this encounter Plan of Treatment Not on file documented as of this encounter Visit Diagnoses Not on filedocumented in this encounter Care Teams Drop Forge Hand Relationship Specialty Start Date End Date Isidro Galeano MD PCP - General INTERNAL MEDICINE 04/06/18 documented as of this encounter
== END 2025-02-14 16:24 | disposition home or self-care (01) ==
PROVIDERS: PCP Family Medicine; Visit Provider Internal Medicine Hematology & Oncology
DX: Z12.31 Encounter for screening mammogram for malignant neoplasm of breast (principal); R92.8 Other abnormal and inconclusive findings on diagnostic imaging of breast
CPT/HCPCS: 77063; 77067

== ENCOUNTER 2025-04-27 11:03 | Outpatient (CLI) | payer MEDICARE, SELFPAY ==
[2025-04-27 11:16] LABS: Hematocrit 40.8 % (37.0-47.0); Hemoglobin 13.0 g/dL (12.0-15.0); Immature Granulocyte Percent A 0.9 % (0-0.5); Lymphocytes Absolute Auto 0.92 K/mm3 (0.9-3.2); Mean Corpuscular HGB Conc 31.9 g/dl (32-36); Mean Corpuscular Hemoglobin 29.7 pg (26-34); Mean Corpuscular Volume 93.4 fl (80-100); Nucleated Red Blood Cells Absolute Auto 0.000 K/mm3 (0.0-0.012); Nucleated Red Blood Cells Perc 0.0 % (0.0-0.2); Platelet Count Result 189 k/mm3 (150-375); Red Blood Count 4.37 M/mm3 (4.2-5.4); White Blood Count 7.0 K/mm3 (4.5-10.0)
[2025-04-27 12:26] LABS: Alanine Aminotransferase 27 U/L (6-35); Albumin Level 4.2 g/dL (3.5-5.1); Alkaline Phosphatase 83 U/L (38-126); Anion Gap 7 mmol/L (4-12); Aspartate Amino Transferase 29 U/L (14-36); Bilirubin,Total 0.4 mg/dL (0.2-1.3); Blood Urea Nitrogen 17 mg/dL (7-17); Calcium 9.4 mg/dL (8.4-10.2); Carbon Dioxide 30 mmol/L (22-30); Chloride 103 mmol/L (98-107); Estimated Glomerular Filt Rate 60; Glucose 87 mg/dL (65-110); Sodium 140 mmol/L (137-145); Total Protein 7.1 g/dL (6.3-8.2)
[2025-04-27 12:34] LABS: Potassium 4.4 mmol/L (3.4-5.0)
== END 2025-04-27 11:04 | disposition home or self-care (01) ==
LOC: ANHLAB 11:04
PROVIDERS: PCP Family Medicine; Visit Provider Internal Medicine Hematology & Oncology
DX: C85.90 Non-Hodgkin lymphoma, unspecified, unspecified site (principal)
CPT/HCPCS: 36415; 80053; 83615; 85025

== ENCOUNTER 2025-05-09 10:19 | Outpatient (CLI) | payer MEDICARE, SELFPAY ==
--- NOTE | ~2025-05-09 | MMUS_ITS ---
EXAMINATION: MM diagnostic nima LT w stormy, US breast LT limited INDICATION: 74-year old female; BI-RADS 0, callback from screening to evaluate left breast asymmetry. Family history of breast cancer in sister. COMPARISON: 02/14/2025 through 03/05/2011 TECHNIQUE: Digital breast tomosynthesis CC and ML views of the LEFT breast and spot compression of the LEFT breast were obtained with computer-aided detection to assist in interpretation of the study. FINDINGS: There are scattered areas of fibroglandular density. The asymmetry of concern in the lower inner at middle depth persists. However this finding is unchanged dating back to the mammogram of 03/05/2011. It is therefore considered benign. LEFT BREAST ULTRASOUND FINDINGS: Targeted sonographic evaluation of the lower inner quadrant was completed. There is no sonographic abnormality that correlates to the area of concern on the mammogram.. IMPRESSION: Benign left breast finding. Recommendations: Annual screening mammography. Given patient's elevated lifetime risk of breast cancer, consider high-risk screening bilateral breast MRI. BI-RADS Category 2: Benign finding(s). Reviewed, dictated and finalized at location B. IMPRESSION: Benign left breast finding. Recommendations: Annual screening mammography. Given patient's elevated lifetime risk of breast cancer, consider high-risk scr eening bilateral breast MRI. BI-RADS Category 2: Benign finding(s).
--- OUTSIDE RECORDS SUMMARY | 2025-05-09 11:09 | XMS_ITS | Clinical Summary ---
Author Organization [facility] Address [address] [place] [address] Care Team Providers Care Proofer Prepress Name Role Phone Isidro Galeano MD Primary [...] hyperglycemia, without long-term current use of insulin ([facility]) 04/02/2021 Personal history of nicotine dependence 04/02/20 [...] 165.1 cm (5' 5) 06/26/2021 1:13 PM TRANSFER TABLE OPERATOR Body Mass Index 42.27 06/26/2021 1:13 PM TRANSFER TABLE OPERATOR Plan of Treatment Health Maintenance Due Date [...] 07/18/2008 Diabetes: Retinopathy Eye Exam 06/01/2023 06/01/2021 RSV Immunization or 60+ Years (1 - 1-dose 75+ series) 2024 COVID-19 Vaccine ( season) 2025 07/26/2021, 10/12/2020, 09/20/2020 DTaP, Tdap and Td Vaccines (2 - [...] Comments LIPID PANEL Routine 10/08/2021 12:05 PM TRANSFER TABLE OPERATOR Hyperlipidemia, unspecified hyperlipidemia type HEMOGLOBIN, GLYCOSYLATED Routine 10/08/2021 12:05 PM TRANSFER TABLE OPERATOR Type 2 diabetes mellitus with hyperglycemia, without long-term current use of insulin DIABETIC RETINOPATHY EXAM (NEGATIVE)(SCAN ORDER) Routine 06/01/2021 12:00 AM CDT BONE DENSITY GENERIC (SCAN ORDER) 05/24/2021 COLONOSCOPY Routine 12/28/2017 12:00 AM CDT from Last 3 Months or Most Recently Relevant to Health Maintenance Results * (ABNORMAL) HEMOGLOBIN, GLYCOSYLATED (10/08/2021 12:05 PM TRANSFER TABLE OPERATOR) HGB A1C 6.4(H) 3.80 - 5.60 % 10/08/2021 6:57 PM TRANSFER TABLE OPERATOR -MICHELLE GRANADOS ESTIMATED AVG GLUCOSE 137(H) 74 - 106 MG/DL 10/08/2021 6:57 PM TRANSFER TABLE OPERATOR [facility] MICHELLE SOUZA 10/08/2021 12:0 5 PM TRANSFER TABLE OPERATOR us Isidro Galeano MD LABORATORY Final Result -[facility] [address] [facility] [place] [address], * (ABNORMAL) LIPID PANEL (10/08/2021 12:05 PM TRANSFER TABLE OPERATOR) CHOLESTEROL 173 <200 MG/DL 10/08/2021 5:47 PM TRANSFER TABLE OPERATOR [facility] TRIGLYCERIDES 125 <150 MG/DL 10/08/2021 5:47 PM TRANSFER TABLE OPERATOR [facility] HDL 43 >40 MG/DL 10/08/2021 5:47 PM TRANSFER TABLE OPERATOR [facility] LDL-C 105(H) <100 MG/DL 10/08/2021 5:47 PM TRANSFER TABLE OPERATOR [facility] VLDL CALCULATION 25 5 - 28 MG/DL 10/08/2021 5:47 PM TRANSFER TABLE OPERATOR [facility] CHOL/HDL RATIO 4.0 0.0 - 4.0 10/08/2021 5:47 PM TRANSFER TABLE OPERATOR [facility] LDL/HDL 2.4(H) 0.41 - 2.13 10/08/2021 5:47 PM TRANSFER TABLE OPERATOR [facility] NON HDL CHOLESTEROL 130 <140 MG/DL 10/08/2021 5:47 PM TRANSFER TABLE OPERATOR [facility] 10/08/2021 12:0 5 PM TRANSFER TABLE OPERATOR Isidro Galeano MD LABORATORY Final [facility] [address] [place] [address], * DIABETIC RETINOPATHY EXAM (NEGATIVE)(SCAN) (06/01/2021 12:00 AM CDT) 06/01/2021 us Documents Scanned SCANNING Final Result [facility] * BONE DENSITY GENERIC (05/24/2021) Anatomical [...] Relevant to Health Maintenance Insurance MED REPLACE [facility] MEDICARE Care Teams Proofer Prepress Relationship Specialty Start Date End Date Isidro Galeano MD PCP - General INTERNAL MEDICINE 04/06/18
--- OUTSIDE RECORDS SUMMARY | 2025-05-09 11:09 | XMS_ITS | Encounter Summary ---
Author Organization [facility] Address [facility] [place] [address] Care Team Providers Care Shop Coordinator Name Role Phone Isidro Galeano MD Primary Care Provider Unavailab Isidro Evans MD Unavailable Unavailable Encounter Details Date Type Department Care Team (Late st Contact Info) Description 10/31/2017 Abstract [facility] CONVERSION [address] [place] [address] , Generic ConversionMD Social History Tobacco Use [...] on filedocumented in this encounter Care Teams Shop Coordinator Relationship Specialty Start Date End Date Isidro Galeano MD PCP - General INTERNAL MEDICINE 04/06/18 Isidro Galeano MD PCP - [facility] - [facility] Attributed Provider 10/15/18 08/17/20 documented as of this encounter
--- OUTSIDE RECORDS SUMMARY | 2025-05-09 11:09 | XMS_ITS | Clinical Summary ---
Author Organization [facility] Address [address] [place] [address] Care Team Providers Care Mobile Qa Tester Name Role Phone Ilan Gibbs MD Primary Care Provider [phone] [phone] Allergies No known active allergies Medications celecoxib [...] 6 hours as needed for Pain. Active Mounjaro 5 mg/0.5 mL Pen Injector ADMINISTER 5 MG UNDER THE SKIN WEEKLY 5 Active topiramate (TOPAMAX) 25 mg tablet Take 1 Tablet by mouth daily. Active DULoxetine (CYMBALTA) 60 mg Capsule, Delayed Release(E.C.) Take 60 mg by mouth daily. Active Active Problems No known active problems Encounters Date Type Department Care Team Description 05/02/2025 11:00 AM CDT Office Visit [facility] Oncology and Hematology [facility] [address] [place] [address] Christian Moore MD Abnormal mammogram of left breast (Primary Dx); Non-Hodgkin's lymphoma, unspecified body region, unspecified non-Hodgkin lymphoma type ([facility]/HCC) 05/02/2025 External Device Data STL ABSTRACTION Provider, Abstract 04/28/2025 Orders Only [facility] Oncology and Hematology [facility] [address] [place] [address] Christian Moore MD 03/01/2025 External Device Data ST[facility] ABSTRACTION Provider, Abstract 02/28/2025 External Device Data [facility] ABSTRACTION Provider, Abstract 02/15/2025 Orders Only [facility] Oncology and Hematology [facility] [address] [place] [address] Christian Moore MD 02/07/2025 External Device Data STL ABSTRACTION Provider, [...] Former Cigarettes 1 55 Q uit: 08/17/2023 Alcohol Use Standard Drinks/Week Comments Yes 0 (1 standard drink = 0.6 oz pur e alcohol) socially Comments Unknown Sex and Gender Information Value Date Recorded Sex Assigned at Not on file Legal Sex Female 11:02 AM CDT Gender Identity Not on file Sexual Orientation Not on file Last Filed Vital Signs Vital Sign Reading Time Taken Comments Blood Pressure 148/94 05/02/2025 10:53 AM CDT Pulse 88 05/02/2025 10:51 AM CDT Temperature 36.7 C (98.1 F) 05/02/2025 10:51 AM CDT Respiratory Rate 16 05/02/2025 10:5 1 AM CDT Oxygen Saturation 95% 05/02/2025 10: 51 AM CDT Inhaled Oxygen Concentration - - Weight 98.8 kg (217 lb 12.8 oz) 025 10:51 AM CDT Height 165.1 cm (5' 5) 04/04/2024 10:1 4 AM CDT Body Mass Index 36.24 04/04/2024 10:14 AM CDT Plan of Treatment Upcoming Encounters Date Type Department Care Team (Late st Contact Info) Description 05/16/2025 4:30 PM CDT Telephone Check Up [facility] Oncology and Hematology [facility] [address] [place] [address] Christian Moore MD [address] [place] [phone] 11/01/2025 11:45 AM CDT Office Visit [facility] Oncology and Hematology [facility] [address] [place] [address] Christian Moore MD [facility] [email or web address] [address] [place] [phone] Health Maintenance Due Date Last Done Comments [...] 04/07/2022 10/08/2021 Lung Cancer Screening 04/17/2022 04/17/2021 RSV VACCINE (60+ or ) (1 - 1-dose 75+ series) 2024 INFLUENZA VACCINE (#1) 2025 , 06/30/2022, 10/08/2021, Additional history exists COVID-19 Vaccine ( - 2024-2 6 season) 2025 05/13/2023, 05/15/2022, 07/26/2021, Additional history exists DTAP/TDAP/TD VACCINES (2 - T d or Tdap) 05/19/2026 05/19/2016 OSTEOPOROSIS SCREENING 05/24/2026 05/24/2021 COLORECTAL SCREENING 12/29/2027 12/28/2017 Colorectal Cancer Screening 12/29/2027 Procedures Procedure Name Priority Date/Time Associated Diagnosis Comments COMPREHENSIVE METABOLIC PANEL Routine 04/27/2025 11:01 AM CDT MAMMO SCREENING BILAT Routine 02/14/2025 10:18 AM CDT from Last 3 Months Results * COMPREHENSIVE METABOLIC PANEL (04/27/2025 11:01 AM CDT) Blood Christian Moore MD CHEMISTRY ORDERABLES Final Resu lt * MAMMO SCREENING BILAT (02/14/2025 10:18 AM CDT) Anatomical Region Laterality Modality Breast Bilateral Mammography Christian Moore MD MAMMO ORDERABLES Final Result from Last 3 Months Insurance [employer] PPO MCR Care Teams Mobile Qa Tester Relationship Specialty Start Date End Date Ilan Gibbs MD [address] [place] [address] PCP - General Family Practice 04/04/24
--- OUTSIDE RECORDS SUMMARY | 2025-05-09 11:09 | XMS_ITS | Clinical Summary ---
Author Organization [facility] [address] Address [address] [place] [address] Care Team Providers Care Pipeline Inspector Name Role Phone Ilan Gibbs MD Primary Care Provider [phone] [phone] Allergies Active Allergy Reactions Criticality Noted Date [...] capsule Take by mouth daily 4 Active torsemide (DEMADEX) 20 mg tablet Take 0.5 tablets (10 mg total) by mouth daily Active topiramate (TOPAMAX) 25 mg tablet Take 1 tablet (25 mg total) by mouth daily Active Mounjaro 2.5 mg/0.5 mL pen injector injection Inject 0.5 mL (2.5 mg total) under the skin once a week Active Active Problems Problem Noted Date Diagnosed Date Essential hypertension 09/02/2024 Mixed hyperlipidemia 09/02/2024 Follicular non-Hodgkin lymphoma 09/02/2024 PAF (paroxysmal atrial fibrillation) 08/15/2024 Encounters Date Type Department Care Team Description 02/13/2025 10:30 AM CDT Office Visit [facility] Cardiology [address] [place] [address] Florentin Sanderson MD PAF (paroxysmal [...] on file 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
--- OUTSIDE RECORDS SUMMARY | 2025-05-09 11:09 | XMS_ITS | Encounter Summary ---
Author Organization [facility] Address [address] [place] [address] Care Team Providers Care Grinder Set Up Operator Surface Name Role Phone Isidro Galeano MD Primary Care Provider Unavailab le Encounter Details Date Type Department Care Team (Late st Contact Info) Description 09/27/2020 [employer] Message Enc [facility] Medical Group Multispecialty Care [address] [address] Iveth, [facility] Provider RE:lab results. Social History Tobacco Use [...] COVID-19? No / Unsure 09/25/2020 10:29 AM SWITCHING CLERK documented as of this encounter Progress Notes * Ishan Pickett, JONATHAN - 10/03/2020 8:02 AM CST . CHING CLERK documented in this encounter Plan of Treatment Not on file documented as of this encounter Visit Diagnoses Not on filedocumented in this encounter Care Teams Grinder Set Up Operator Surface Relationship Specialty Start Date End Date Isidro Galeano MD PCP - General INTERNAL MEDICINE 04/06/18 documented as of this encounter
--- OUTSIDE RECORDS SUMMARY | 2025-05-09 11:09 | XMS_ITS | Encounter Summary ---
Author Organization [facility] Address [address] [place] [address] Care Team Providers Care Intensive Care Anaesthetist Name Role Phone Isidro Galeano MD Primary Care Provider Unavailab Isidro Evans MD Unavailable Unavailable Encounter Details Date Type Department Care Team (Latest Contact Info) Description 05/12/2018 Abstract [facility] Angel Ayala MD [...] on filedocumented in this encounter Care Teams Intensive Care Anaesthetist Relationship Specialty Start Date End Date Isidro Galeano MD PCP - General INTERNAL MEDICINE 04/06/18 Isidro Galeano MD PCP - Med Group - [facility] Attributed Provider 10/15/18 08/17/20 documented as of this encounter
== END 2025-05-09 10:20 | disposition home or self-care (01) ==
LOC: ANHFOHIMG 10:20
PROVIDERS: PCP Family Medicine; Visit Provider Internal Medicine Hematology & Oncology
DX: R92.8 Other abnormal and inconclusive findings on diagnostic imaging of breast (principal)
CPT/HCPCS: 76642; 77061; 77065; G0279

== ENCOUNTER 2025-08-12 11:36 | Outpatient (CLI) | payer MEDICARE, SELFPAY ==
--- OUTSIDE RECORDS SUMMARY | 2025-08-12 11:40 | XMS_ITS | Encounter Summary ---
Author Organization [facility] Address [facility] [place] [address] Care Team Providers Care Pathology Assistant Name Role Phone Isidro Galeano MD Primary Care Provider Unavailab Isidro Evans MD Unavailable Unavailable Encounter Details Date Type Department Care Team (Late st Contact Info) Description 10/31/2017 Abstract [facility] [address] [place] [address] , Generic ConversionMD Social History Tobacco Use [...] on filedocumented in this encounter Care Teams Pathology Assistant Relationship Specialty Start Date End Date Isidro Glaeano MD PCP - General INTERNAL MEDICINE 04/06/18 Isidro Galeano MD PCP - Med Group - [facility] Attributed Provider 10/15/18 08/17/20 documented as of this encounter
--- OUTSIDE RECORDS SUMMARY | 2025-08-12 11:40 | XMS_ITS | Clinical Summary ---
Author Organization [facility] [employer] Address [address] [place] [address] Care Team Providers Care Audit Manager Name Role Phone Ilan Gibbs MD Primary Care Provider [phone] Allergies No known active allergies Medications celecoxib [...] Encounters Date Type Department Care Team Description 08/08/2025 External Device Data [facility] ABSTRACTION Provider, Abstract 06/07/2025 External Device Data [facility] ABSTRACTION Provider, Abstract 06/06/2025 External Device Data [facility] ABSTRACTION Provider, Abstract 05/16/2025 4:30 PM CDT Telephone Check Up [facility] Oncology and Hematology - [place] [address] [place] [address] Christian Moore MD from Last 3 Months Family History Medical [...] Care Team (Late st Contact Info) Description 11/01/2025 11:45 AM CDT Office Visit [facility] Oncology and Hematology - [place] [address] [facility] [address] [place] [address] Christian Moore MD [address] [facility] [address] [place] [address] Health Maintenance Due Date Last [...] 06/30/2022, 10/08/2021, Additional history exists COVID-19 Vaccine (6 - 2024-2 6 season) 2025 05/13/2023, 05/15/2022, 07/26/2021, Additional history exists DTAP/TDAP/TD VACCINES (2 - T d or Tdap) 05/19/2026 05/19/2016 OSTEOPOROSIS SCREENING 05/24/2026 05/24/2021 COLORECTAL SCREENING 12/29/2027 12/28/2017 Colorectal Cancer Screening 12/29/2027 Insurance AETNA PPO [facility] Care Teams Audit Manager Relationship Specialty Start Date End Date Ilan Gibbs MD [address] [place] [address] PCP - General Family Practice 04/04/24
--- OUTSIDE RECORDS SUMMARY | 2025-08-12 11:40 | XMS_ITS | Encounter Summary ---
Author Organization [facility] Address [address] [place] [address] Care Team Providers Care Benefits Specialist Recruiter Name Role Phone Isidro Galeano MD Primary Care Provider Unavailab Isidro Evans MD Unavailable Unavailable Encounter Details Date Type Department Care Team (Latest Contact Info) Description 05/12/2018 Abstract [facility] Angel Ayala MD Social [...] on filedocumented in this encounter Care Teams Benefits Specialist Recruiter Relationship Specialty Start Date End Date Isidro Galeano MD PCP - General INTERNAL MEDICINE 04/06/18 Isidro Galeano MD PCP - Med Group - [facility] Attributed Provider 10/15/18 08/17/20 documented as of this encounter
--- OUTSIDE RECORDS SUMMARY | 2025-08-12 11:40 | XMS_ITS | Clinical Summary ---
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
--- OUTSIDE RECORDS SUMMARY | 2025-08-12 11:40 | XMS_ITS | Clinical Summary ---
Author Organization [facility] Address [address] [place] [address] Care Team Providers Care Corrections Officer Name Role Phone Isidro Galeano MD Primary [...] hyperglycemia, without long-term current use of insulin 04/02/2021 Personal history of nicotine dependence 04/02/20 [...] 165.1 cm (5' 5) 06/26/2021 1:13 PM WRECKER DRIVER Body Mass Index 42.27 06/26/2021 1:13 PM WRECKER DRIVER Plan of Treatment Health Maintenance Due Date Last Done Comments ASCVD Statin 1950 Kidney Health Evaluation 1950 Hepatitis C 11/29/1967 Zoster Vaccines (1 of 2) 11/29/1999 Annual Medicare Wellness Visit 2014 Pneumococcal Vaccine: 50+ Years (3 of 3 - PCV20 or PCV21) 05/19/2021 05/19/2016, 07/01/2011 Hemoglobin A1C 04/07/2022 10/08/2021, 0802/2021, 09/25/2020 [facility] LDL 10/08/2022 10/08/2021, 02/0 04/2021, 05/30/2019, Additional history exists Lipid Panel 10/08/2022 10/08/2021, 02/0 04/2021, 05/30/2019, Additional history exists Colorectal Cancer Screening Colonoscopy (10 Years) 12/28/2022 12/28/2017, 12/28/2017, 07/18/2008 Diabetes: Retinopathy Eye Exam 06/01/2023 06/01/2021 RSV Immunization or 60+ Years (1 - 1-dose 75+ series) 2024 COVID-19 Vaccine ( season) 2025 07/26/2021, 10/12/2020, 09/20/2020 Influenza Adult (#1) 2025 10/08/2021, 05/29/2020, 05/24/2019, Additional history exists DTaP, Tdap and Td Vaccines (2 - Td or Tdap) 05/19/2026 05/19/2016 Dexa Scan (General) Completed 05/24/2021 Hepatitis A Vaccines Aged Out No long er eligible based on patient's age to complete this topic Meningococcal B Vaccine Aged Out No l [...] Comments LIPID PANEL Routine 10/08/2021 12:05 PM WRECKER DRIVER Hyperlipidemia, unspecified hyperlipidemia type HEMOGLOBIN, GLYCOSYLATED Routine 10/08/2021 12:05 PM WRECKER DRIVER Type 2 diabetes mellitus with hyperglycemia, without long-term current use of insulin DIABETIC RETINOPATHY EXAM (NEGATIVE)(SCAN ORDER) Routine 06/01/2021 12:00 AM CDT BONE DENSITY GENERIC (SCAN ORDER) 05/24/2021 COLONOSCOPY Routine 12/28/2017 12:00 AM CDT from Last 3 Months or Most Recently Relevant to Health Maintenance Results * (ABNORMAL) HEMOGLOBIN, GLYCOSYLATED (10/08/2021 12:05 PM WRECKER DRIVER) HGB A1C 6.4(H) 3.80 - 5.60 % 10/08/2021 6:57 PM WRECKER DRIVER MG-MICHELLE GRANADOS ESTIMATED AVG GLUCOSE 137(H) 74 - 106 MG/DL 10/08/2021 6:57 PM WRECKER DRIVER MG-MICHELLE GRANADOS 10/08/2021 12:0 5 PM WRECKER DRIVER Isidro Galeano MD LABORATORY Final Result [facility] [address] [place] [address], * (ABNORMAL) LIPID PANEL (10/08/2021 12:05 PM WRECKER DRIVER) [facility] CHOLESTEROL 173 <200 MG/DL 10/08/2021 5:47 PM WRECKER DRIVER [facility] TRIGLYCERIDES 125 <150 MG/DL 10/08/2021 5:47 PM WRECKER DRIVER [facility] HDL 43 >40 MG/DL 10/08/2021 5:47 PM WRECKER DRIVER [facility] LDL-C 105(H) <100 MG/DL 10/08/2021 5:47 PM WRECKER DRIVER [facility] VLDL CALCULATION 25 5 - 28 MG/DL 10/08/2021 5:47 PM WRECKER DRIVER [facility] CHOL/HDL RATIO 4.0 0.0 - 4.0 10/08/2021 5:47 PM WRECKER DRIVER [facility] LDL/HDL 2.4(H) 0.41 - 2.13 10/08/2021 5:47 PM WRECKER DRIVER [facility] NON HDL CHOLESTEROL 130 <140 MG/DL 10/08/2021 5:47 PM WRECKER DRIVER [facility] 10/08/2021 12:0 5 PM WRECKER DRIVER Isidro Galeano MD LABORATORY Final Result [address] [address] [address] [place] [address], * DIABETIC RETINOPATHY EXAM (NEGATIVE)(SCAN) (06/01/2021 12:00 AM CDT) 06/01/2021 us Documents Scanned SCANNING Final Result Performing Organization Address City/[facility]/ZIP Co de Phone Number [facility] * BONE DENSITY GENERIC (05/24/2021) Anatomical Region Laterality Modality Other 05/24/2021 Narrative 05/24/2021 Ordered by an unspecified provider. us Documents Scanned SCANNING Final Result * Colonoscopy (12/28/2017 12:00 AM CDT) 12/28/2017 12/28/2017 Narrative [facility] TO EPIC CONVERSION - 12/28/2017 12:00 AM CDT Documented hx of procedure Procedure Note Md Generic ConversionMD - 06/20/2018 Documented hx of procedure us Generic Conversion Md CATES GI PROCEDURE ORDERABLES Final Result [facility] TO EP[facility] CONVERSION from Last 3 Months or Most Recently Relevant to Health Maintenance Insurance MED REPLACE [facility] MEDICARE Care Teams Corrections Officer Relationship Specialty Start Date End Date Isidro Galeano MD PCP - General INTERNAL MEDICINE 04/06/18
--- OUTSIDE RECORDS SUMMARY | 2025-08-12 11:40 | XMS_ITS | Encounter Summary ---
Author Organization [facility] Address [address] [place] [address] Care Team Providers Care Elocution Teacher Name Role Phone Isidro Galeano MD Primary Care Provider Unavailab le Encounter Details Date Type Department Care Team (Late st Contact Info) Description 09/27/2020 [place] Message Enc [facility] Medical Group Multispecialty Care [address] [address] Iveth, [facility] Provider RE:lab results. Social History Tobacco Use [...] COVID-19? No / Unsure 09/25/2020 10:29 AM MANAGEMENT DEPARTMENT CHAIR documented as of this encounter Progress Notes * Ishan Pickett, JONATHAN - 10/03/2020 8:02 AM CST . GEMENT DEPARTMENT CHAIR documented in this encounter Plan of Treatment Not on file documented as of this encounter Visit Diagnoses Not on filedocumented in this encounter Care Teams Elocution Teacher Relationship Specialty Start Date End Date Isidro Galeano MD PCP - General INTERNAL MEDICINE 04/06/18 documented as of this encounter
[2025-08-12 13:01] LABS: Hematocrit 39.6 % (37.0-47.0); Hemoglobin 12.8 g/dL (12.0-15.0); Immature Granulocyte Percent A 0.9 % (0-0.5); Lymphocytes Absolute Auto 0.97 K/mm3 (0.9-3.2); Mean Corpuscular HGB Conc 32.3 g/dl (32-36); Mean Corpuscular Hemoglobin 28.9 pg (26-34); Mean Corpuscular Volume 89.4 fl (80-100); Nucleated Red Blood Cells Absolute Auto 0.000 K/mm3 (0.0-0.012); Nucleated Red Blood Cells Perc 0.0 % (0.0-0.2); Platelet Count Result 225 k/mm3 (150-375); Red Blood Count 4.43 M/mm3 (4.2-5.4); White Blood Count 7.6 K/mm3 (4.5-10.0)
[2025-08-12 13:10] LABS: Hemoglobin A1C 5.4 % (<5.7)
[2025-08-12 13:29] LABS: Alanine Aminotransferase 24 U/L (6-35); Albumin Level 4.1 g/dL (3.5-5.1); Alkaline Phosphatase 80 U/L (38-126); Anion Gap 9 mmol/L (4-12); Aspartate Amino Transferase 29 U/L (14-36); Bilirubin,Total 0.4 mg/dL (0.2-1.3); Blood Urea Nitrogen 16 mg/dL (7-17); Calcium 9.0 mg/dL (8.4-10.2); Carbon Dioxide 28 mmol/L (22-30); Chloride 103 mmol/L (98-107); Cholesterol 157 mg/dL (0-200); Estimated Glomerular Filt Rate > 60; Glucose 93 mg/dL (65-110); HDL Direct 46 mg/dL; Potassium 3.0 mmol/L (3.4-5.0); Sodium 140 mmol/L (137-145); Total Protein 7.0 g/dL (6.3-8.2); Triglycerides 118 mg/dL (<150)
[2025-08-12 13:35] LABS: MALB Creatinine Ratio 24.4 mg/g (0-30)
[2025-08-12 14:05] LABS: Thyroid Stimulating Hormone 0.055 uIU/mL (0.465-4.680)
[2025-08-12 14:23] LABS: Vitamin B12 470.0 pg/mL (239-931)
== END 2025-08-12 11:37 | disposition home or self-care (01) ==
PROVIDERS: PCP Family Medicine; Visit Provider Family Medicine
DX: E11.9 Type 2 diabetes mellitus without complications (principal); M81.0 Age-related osteoporosis without current pathological fracture; C85.90 Non-Hodgkin lymphoma, unspecified, unspecified site; G89.29 Other chronic pain; Z00.00 Encounter for general adult medical examination without abnormal findings; Z79.899 Other long term (current) drug therapy
CPT/HCPCS: 36415; 80053; 80061; 82043; 82306; 82607; 83036; 84443; 85025